=== PATIENT | male | born 1980 | race Hispanic/Latino ===

== ENCOUNTER 2017-01-01 17:54 | Emergency (ER) | payer MEDICARE ==
[2017-01-01] MEDS ORDERED: TORADOL IM ONE (19:21)
--- NOTE | 2017-01-01 19:38 | XRay Report ---
FINAL REPORT EXAM: XR ANKLE 3 RT HISTORY: right ankle pain, twisting injury and swelling TECHNIQUE: Right ankle three views 3 images PRIORS: None. FINDINGS: Bone mineralization appears within normal limits. No acute fracture or subluxation is identified. No gross abnormality is seen in the soft tissues. IMPRESSION: 1. No acute osseous abnormality is identified.
--- NOTE | 2017-01-01 19:39 | XRay Report ---
FINAL REPORT EXAM: XR FOOT 3 RT HISTORY: right heel pain, twisting injury and swelling TECHNIQUE: Right foot three views 3 images PRIORS: None. FINDINGS: Bone mineralization appears within normal limits. No acute fracture or subluxation is identified. No gross abnormality is seen in the soft tissues. IMPRESSION: 1. No acute osseous abnormality is identified.If symptoms persist, consider repeat study in 10-14 days to assess for a currently radiographically occult fracture.
[2017-01-01 19:57] VITALS: BP 148/93
--- NOTE | 2017-01-01 22:07 | Emergency Department Report ---
Entered by LEÓN MAJANO, acting as scribe for ADELINA STEPHENS PA. ED Lower Extremity HPI - General Chief Complaint: Extremity Injury, Lower Stated Complaint: RT ANKLE/HEEL PAIN Time Seen by Provider: 01/01/17 18:59 Source: patient Mode of arrival: Ambulatory Limitations: No Limitations - History of Present Illness Initial Comments: 36 year old with a PMHx of HTN and GERD presents to the ED c/o right ankle and calcaneus pain that began 2 days ago. Patient states that he was walking and stepped in a hole, and subsequently injured his right ankle. Rates pain an 8/10 in severity and describes pain as throbbing in quality. Denies numbness, tingling, shortness of breath, chest pain, abdominal pain, fever, and chills. Denies previous right ankle injury or surgery. Denies tobacco use and EtOH consumption. Allergic to codeine and Sulfa. MD Complaint: ankle injury (right) Onset/Timin -: days(s) Injury: Ankle: Right (posterior ankle and dorsal forefoot) Type of Injury: inversion Place: street/outdoors Severity: moderate Severity scale (0 -10): 8 Improves With: immobilization Worsens With: weight bearing, movement, palpation Context: walking (stepped in hole and injured ankle) Associated Symptoms: swelling, able to partially bear weight, ambulatory. denies: snap/pop sensation, numbness, tingling, other (SOB, chest pain, abdominal pain, fever, and chills) - Related Data Home Medications Medication Instructions Recorded Confirmed Last Taken Lisinopril [Zestril TAB] 10 mg PO QDAY 09/10/13 04/08/15 04/08/15 Omeprazole [Prilosec] 20 mg PO BID 09/10/13 04/08/15 04/08/15 cloNIDine [Catapres] 0.1 mg PO QHS 09/10/13 04/08/15 04/07/15 ARIPiprazole [Abilify TAB] 10 mg PO DAILY 04/08/15 04/08/15 04/07/15 Mirtazapine [Remeron] 7.5 mg PO QHS 04/08/15 04/08/15 04/07/15 carBAMazepine [TEGretol] 200 mg PO Q12HR 04/08/15 04/08/1515 Previous Rx's Medication Instructions Recorded Last Taken Type Ibuprofen [Motrin 800 MG tab] 800 mg PO Q8HR PRN #30 tablet 04/08/15 Unknown Rx methOCARBAMOL [Robaxin TAB] 500 mg PO Q6H PRN #20 tablet 04/08/15 Unknown Rx Gentamicin 0.3% Ophth Soln 2 drops OP Q4H 5 Days 04/28/15 Unknown Rx Meloxicam 15 mg PO QDAY #30 tablet 05/04/15 Unknown Rx methOCARBAMOL [Robaxin TAB] 500 mg PO BID #10 tab 05/04/15 Unknown Rx Naproxen [Naprosyn] 500 mg PO BID #30 tablet 01/01/17 Unknown Rx Allergies Allergy/AdvReac Type Severity Reaction Status Date / Time codeine Allergy Anaphylaxis Verified 04/28/15 14:26 Sulfa (Sulfonamide Allergy Anaphylaxis Verified 04/28/15 14:26 Antibiotics) ED Review of Systems Comment: All other systems reviewed and negative Constitutional: denies: chills, fever, other (tingling) Respiratory: denies: orthopnea, shortness of breath, SOB with exertion, SOB at rest, stridor Cardiovascular: denies: chest pain, dyspnea on exertion, orthopnea Gastrointestinal: denies: abdominal pain, nausea, vomiting Musculoskeletal: other (right posterior, dorsal forefoot, and calcaneus pain) Neurological: denies: numbness ED Past Medical Hx - Past Medical History Hx Hypertension: Yes Hx GERD: Yes Hx Psychiatric Treatment: Yes (PTSD,AUTISM) Additional medical history: schizoeffective disorder. bipolar - Surgical History Hx Appendectomy: Yes (1994) Additional Surgical History: right ACL repair - Social History Smoking Status: Never Smoker Substance Use Type: None - Medications Home Medications: Home Medications Medication Instructions Recorded Confirmed Last Taken Type Lisinopril [Zestril TAB] 10 mg PO QDAY 09/10/13 04/08/15 04/08/15 History Omeprazole [Prilosec] 20 mg PO BID 09/10/13 04/08/15 04/08/15 History cloNIDine [Catapres] 0.1 mg PO QHS 09/10/13 04/08/15 04/07/15 History ARIPiprazole [Abilify TAB] 10 mg PO DAILY 04/08/15 04/08/15 04/07/15 History Ibuprofen [Motrin 800 MG tab] 800 mg PO Q8HR PRN #30 tablet 04/08/15 Unknown Rx Mirtazapine [Remeron] 7.5 mg PO QHS 04/08/15 04/08/15 04/07/15 History carBAMazepine [TEGretol] 200 mg PO Q12HR 04/08/15 04/08/15 04/08/15 History methOCARBAMOL [Robaxin TAB] 500 mg PO Q6H PRN #20 tablet 04/08/15 Unknown Rx Gentamicin 0.3% Ophth Soln 2 drops OP Q4H 5 Days 04/28/15 Unknown Rx Meloxicam 15 mg PO QDAY #30 tablet 05/04/15 Unknown Rx methOCARBAMOL [Robaxin TAB] 500 mg PO BID #10 tab 05/04/15 Unknown Rx Naproxen [Naprosyn] 500 mg PO BID #30 tablet 01/01/17 Unknown Rx ED Physical Exam - General Limitations: No Limitations General appearance: alert, in no apparent distress - Head Head exam: Present: atraumatic, normocephalic - Eye Eye exam: Present: normal appearance, EOMI Pupils: Present: normal accommodation - ENT ENT exam: Present: normal exam, mucous membranes moist - Neck Neck exam: Present: normal inspection, full ROM - Respiratory Respiratory exam: Present: normal lung sounds bilaterally. Absent: respiratory distress - Cardiovascular Cardiovascular Exam: Present: regular rate, normal rhythm - Extremities Exam Extremities exam: Present: normal inspection, full ROM (limited dorsiflexion and plantar flexion), tenderness (posterior right ankle, right calcaneus, and right dorsal forefoot tenderness) - Expanded Lower Extremity Exam Right Hip exam: Present: normal inspection, full ROM Upper Leg exam: Present: normal inspection, full ROM Knee exam: Present: normal inspection, full ROM Lower Leg exam: Present: normal inspection, full ROM Ankle exam: Present: normal inspection, full ROM (limited dorsiflexion and plantar flexion motion due to posterior right ankle pain), tenderness (right posterior ankle and calcaneus). Absent: swelling, abrasion, laceration, ecchymosis, deformity, dislocation, erythema Foot/Toe exam: Present: normal inspection, full ROM (limited dorsiflexion and plantar flexion motion due to right dorsal forefoot pain), tenderness (right dorsal forefoot), swelling (minimal), calcaneal tenderness (minimal). Absent: abrasion, laceration, ecchymosis, deformity, dislocation Neuro vascular tendon exam: Present: no vascular compromise. Absent: pulse deficit, abnormal cap refill, motor deficit, sensory deficit, tendon deficit, pallor Gait: Positive: observed and limited by pain - Back Exam Back exam: Present: normal inspection, full ROM - Neurological Exam Neurological exam: Present: alert, oriented X3 - Psychiatric Psychiatric exam: Present: normal affect, normal mood - Skin Skin exam: Present: warm, dry, intact. Absent: rash ED Course Vital Signs 01/01/17 01/01/17 18:23 19:56 Temperature 98.9 F 99.5 F Pulse Rate 108 H 98 H Respiratory 18 18 Rate Blood Pressure 148/93 [Right] O2 Sat by Pulse 95 96 Oximetry ED Lower Extremity MDM - Lab Data Vital Signs 01/01/17 01/01/17 18:23 19:56 Temperature 98.9 F 99.5 F Pulse Rate 108 H 98 H Respiratory 18 18 Rate Blood Pressure 148/93 [Right] O2 Sat by Pulse 95 96 Oximetry - Radiology Data Radiology results: report reviewed Right foot x-ray: Bone mineralization appears within normal limits. No acute fracture or subluxation is identified. No gross abnormality seen in the soft tissues. Right ankle x-ray: Bone mineralization appears within normal limits. No acute fracture or subluxation is identified. No gross abnormalities seen and soft tissues. - Medical Decision Making 36-year-old male presents today with right ankle and heel pain 2 days. His x- ray results reveal no fracture or dislocation. Referral for orthopedic has been provided. Patient is in no acute distress at this time. He will be discharged home and is encouraged to follow up with a primary care provider. He will be sent home on naproxen and is encouraged to return to the emergency room for any worsening symptoms. ED Disposition Clinical Impression: Ankle pain, Heel pain Disposition: DISCHARGED TO HOME OR SELFCARE Is pt being admited?: No Does the pt Need Aspirin: No Condition: Stable Instructions: Ankle Sprain (ED) Additional Instructions: Follow-up with primary care provider. Return to the emergency department if symptoms worsen. Prescriptions: Naproxen [Naprosyn] 500 mg PO BID #30 tablet Referrals: PRIMARY MD VINCE [Primary Care Provider] - 3-5 Days REYNA MCGILL MD [Staff Physician] - 3-5 Days Forms: Work/School Release Form(ED) Time of Disposition: 19:49 This documentation as recorded by the MELECIO daily JASMINE,accurately reflects the service I personally performed and the decisions made by ,ADELINA STEPHENS PA.
== END 2017-01-01 20:10 | disposition home or self-care (01) ==
LOC: ED 17:54
DX: M25.571 Pain in right ankle and joints of right foot (principal); I10 Essential (primary) hypertension; K21.9 Gastro-esophageal reflux disease without esophagitis; F43.10 Post-traumatic stress disorder, unspecified; F31.9 Bipolar disorder, unspecified; F25.9 Schizoaffective disorder, unspecified; Z90.49 Acquired absence of other specified parts of digestive tract; Z88.5 Allergy status to narcotic agent; Z88.2 Allergy status to sulfonamides
CPT/HCPCS: 73610; 73630; 96372; 99283; J1885

== ENCOUNTER 2017-12-03 13:52 | Emergency (ER) | payer MEDICARE ==
[2017-12-03 14:00] VITALS: BP 143/82
--- NOTE | 2017-12-03 16:54 | XRay Report ---
FINAL REPORT PROCEDURE: Right hand. TECHNIQUE: Three views. HISTORY: Hand swelling, pain. COMPARISON: No prior studies are available for comparison. FINDINGS: There is a transverse fracture through the ulnar styloid process. The fracture margins are indistinct and there may be some erosion present. This suggests that this is an old, unhealed fracture. Clinical correlation is recommended. The remaining bones appear intact. The joint spaces appear satisfactory. The soft tissues are unremarkable. IMPRESSION: Ununited fracture of the ulnar styloid process.
--- NOTE | 2017-12-03 17:13 | Emergency Department Report ---
Upper Extremity - HPI Chief Complaint: Extremity Injury, Upper Stated Complaint: HAND PROBLEM Time Seen by Provider: 12/03/17 17:13 Upper Extremity: Left Wrist (radiating pain from right middle finger), Right Middle Finger (right middle finger pain radiating down to right wrist) Occurred When: >5 Days (2 months ago) Mechanism: Hit with Object Severity: severe (8/10) Symptoms: Yes Pain with Movement (right middle finger), Yes Limited Range of Movement (right middle finger pain with movement), Yes Swelling (right middle finger), No Deformity, No Numbness, No Weakness, No Bruising/Ecchymosis, No Laceration or Abrasion Other History: page patient here reports that he has swelling to his right middle finger. He states that he fractured this same digit 2 months ago and wore a splint for 2 weeks. He said he followed up with orthopedic in [place] and was told that everything was fine but yesterday it started swelling again. He denies reinjuring his finger. He said these have been pain to that digit this radiated into his wrist on the ulnar side. Pain is 8 out of 10 that feels achy. No medication taken prior to coming to the hospital. Pain is worse with movement better with rest. Patient reports that he is at [facility] outpatient for rehabilitation. ED Review of Systems ROS: Stated complaint: HAND PROBLEM Other details as noted in HPI Comment: All other systems reviewed and negative Constitutional: no symptoms reported Respiratory: no symptoms reported Cardiovascular: denies: chest pain, palpitations, dyspnea on exertion, edema, syncope Gastrointestinal: denies: abdominal pain, nausea, vomiting Musculoskeletal: joint swelling, arthralgia. denies: back pain, myalgia Skin: denies: rash Neurological: denies: headache, numbness, paresthesias, abnormal gait, vertigo ED Past Medical Hx - Past Medical History Previous Medical History?: Yes Hx Hypertension: Yes Hx GERD: Yes Hx Psychiatric Treatment: Yes (PTSD,AUTISM) Additional medical history: schizoeffective disorder. bipolar - Surgical History Past Surgical History?: Yes Hx Appendectomy: Yes (1994) Additional Surgical History: right ACL repair - Family History Family history: hypertension - Social History Smoking Status: Never Smoker Substance Use Type: None - Medications Home Medications: Home Medications Medication Instructions Recorded Confirmed Last Taken Type Lisinopril [Zestril TAB] 10 mg PO QDAY 09/10/13 04/08/15 04/08/15 History Omeprazole [Prilosec] 20 mg PO BID 09/10/13 04/08/15 04/08/15 History cloNIDine [Catapres] 0.1 mg PO QHS 09/10/13 04/08/15 04/07/15 History ARIPiprazole [Abilify TAB] 10 mg PO DAILY 04/08/15 04/08/15 04/07/15 History Mirtazapine [Remeron] 7.5 mg PO QHS 04/08/15 04/08/15 04/07/15 History carBAMazepine [TEGretol] 200 mg PO Q12HR 04/08/15 04/08/15 04/08/15 History methOCARBAMOL [Robaxin TAB] 500 mg PO Q6H PRN #20 tablet 04/08/15 Unknown Rx Gentamicin 0.3% Ophth Soln 2 drops OP Q4H 5 Days bottle 04/28/15 Unknown Rx Meloxicam 15 mg PO QDAY #30 tablet 05/04/15 Unknown Rx methOCARBAMOL [Robaxin TAB] 500 mg PO BID #10 tab 05/04/15 Unknown Rx Naproxen [Naprosyn] 500 mg PO BID #30 tablet 01/01/17 Unknown Rx Ibuprofen [Motrin 800 MG tab] 800 mg PO Q8HR PRN #15 tablet 12/03/17 Unknown Rx Upper Extremity Exam - Exam General: Vital signs noted. No distress. Alert and acting appropriately. Patient is a 37-year-old patient in no acute distress. He is visiting from [facility] for pain to his right middle finger this radiated to his right wrist. Head and Torso: No HEENT Abnormality (normal exam), No Neck Tenderness (no C- spine tenderness, full range of motion), No Chest/Lungs Abnormality (no chest wall tenderness,CTAB. Normal work of breathing), No Abdominal Tenderness ( nontender to palpate in all quadrants, no guarding or rebound tenderness.), No Back Tenderness (no vertebral or paraspinal tenderness. Ambulates without any difficulties) Shoulder Exam: Yes Normal Range of Motion in Shoulder, No Shoulder Tenderness, No Clavicle Tenderness, No Shoulder Deformity, No AC Joint Tenderness Arm Exam: No Arm/Humerus Tenderness, No Arm Deformity Elbow: Yes Normal Range of Motion in Elbow, No Elbow Tenderness, No Elbow Deformity Forearm: No Forearm Tenderness, No Forearm Deformity, No Pain with Pronation, No Pain with Supination Wrist: Yes Normal ROM in Wrist, No Wrist Tenderness, No Wrist Deformity, No Snuffbox Tenderness, No Pain with Axial Thumb Compression Hand: Yes Hand Tenderness (ulnar styloid area, right hand), Yes Digit Tenderness (right middle finger), Yes Normal ROM in Digit(s) (pain with range of motion.), No Hand Deformity, No Digit(s) Deformity, No Tendon Dysfunction CMS Exam: Yes Normal Distal Pulses, Yes Normal Capillary Refill, Yes Normal Distal Sensation, No Broken Skin ED Course Vital Signs 12/03/17 13:55 Temperature 98.2 F Pulse Rate 108 H Respiratory 16 Rate Blood Pressure 143/82 O2 Sat by Pulse 98 Oximetry Vital Signs 12/03/17 12/03/17 13:55 17:28 Temperature 98.2 F Pulse Rate 108 H 84 Respiratory 16 Rate Blood Pressure 143/82 O2 Sat by Pulse 98 Oximetry - Reevaluation(s) Reevaluation #1: 12/03/17 17:32 Patient given Motrin 800 mg by mouth in emergency room. Please refer to procedure note for splinting. - Orthopedic Splinting/Casting Injury #1 Side: right Upper Extremity Injury Location: hand, finger Upper Extremity Immobilizer: ulnar gutter (prefabricated, Velcro boxer splint to right hand and metal finger splint to right middle finger), aluminum form splint Additional Comments: Patient with good color, sensation, movement and temperature fingers of right hand. Pulses are 2+ and bounding. ED Medical Decision Making - Radiology Data Radiology results: report reviewed X-ray of right hand showed ununited fracture of ulnar styloid process. Transverse fracture through the ulnar styloid process. The fracture margins are indistinct and there may be some erosion present. This suggests that this is an old, unhealed fracture. Patient does not remember fracture in his wrist he said that he fractured his right middle finger 2 months ago. The joint spaces are satisfactory. The soft tissues are unremarkable. - Medical Decision Making ED course:Patient here from [facility] report that he is having hand pain and swelling to his right middle finger. He reports that he injured his right middle finger 2 months ago and it was splinted with metal splint and he followed up with orthopedic in [place] and they said that his finger was healed. Patient found to have ununited fracture of the ulnar styloid process which she said he doesn't know anything about because he does remember having a fracture there. This fracture per radiologist is old due to erosion. Patient with right middle finger swelling and he denied that he reinjured his right middle finger but said that he fractured it 2 months ago and he put a metal finger splint and he went to orthopedic in [facility] and be reevaluated and told him that he was healed. No mentioned of finger fracture on x-ray but the patient does have swelling and tenderness to the middle finger. Patient given Motrin 800 mg by mouth in the emergency room for pain. I did mention to him his x-ray results and he is adamant that he did not have any fracture to the ulnar styloid of his right hand. Patient does not have any restriction of range of motion to his left wrist but he does have some tenderness over the ulnar styloid process without any deformity. He said that pain is radiating from his middle finger to his wrists but wrist is normal. I discussed the patient that he will need to follow up with orthopedic doctor for reevaluation and treatment. Please see procedure note for details on splinted. Patient discharged home prescription for Motrin and he will be going back to [facility] to complete his treatment. Critical care attestation.: If time is entered above; I have spent that time in minutes in the direct care of this critically ill patient, excluding procedure time. ED Disposition Clinical Impression: Fracture, ununited, Swelling of right middle finger, Hand pain, right Disposition: DC-01 TO HOME OR SELFCARE Is pt being admited?: No Does the pt Need Aspirin: No Condition: Stable Instructions: Hand Fracture (ED), Splint Care (ED), Arthralgia (ED), Contusion in Adults (ED) Additional Instructions: Please follow up with orthopedic doctor as discussed. Take Motrin as prescribed See discharge instructions on splint care Call orthopedic doctor in Wednesday to schedule appointment for follow-up visit. Please see referral and discharge instruction paperwork Prescriptions: Ibuprofen [Motrin 800 MG tab] 800 mg PO Q8HR PRN #15 tablet PRN Reason: Pain Referrals: PRIMARY CAREMD [Primary Care Provider] - 3-5 Days KIM BOWIE MD [Staff Physician] - 3-5 Days Forms: Work/School Release Form(ED)
[2017-12-03] MEDS ORDERED: MOTRIN PO ONE (17:28)
== END 2017-12-03 17:50 | disposition home or self-care (01) ==
LOC: ED 13:52
DX: S52.611A Displaced fracture of right ulna styloid process, initial encounter for closed fracture (principal); I10 Essential (primary) hypertension; K21.9 Gastro-esophageal reflux disease without esophagitis; X58.XXXA Exposure to other specified factors, initial encounter; Y93.89 Activity, other specified; Y92.89 Other specified places as the place of occurrence of the external cause; Y99.8 Other external cause status
CPT/HCPCS: 99283

== ENCOUNTER 2017-12-04 23:06 | Emergency (ER) | payer MEDICARE ==
--- NOTE | 2017-12-04 23:44 | Emergency Department Report ---
Chief Complaint: Extremity Injury, Upper Stated Complaint: SWELLING RIGHT HAND - HPI History of Present Illness: 37-year-old male presents with complaint of increased pain and swelling right hand and wrist. As per patient he was treated in the ED yesterday and informed that he had a right wrist fracture. Is presenting now with significant increased swelling and redness overlying skin. Patient denies fever or chills. States that he was given a Velcro splint but cannot tolerate wearing it secondary to pain and swelling. - ROS Review of Systems: Fracture of right wrist diagnosed yesterday - Exam Vital Signs: Vital Signs 12/04/17 23:26 Temperature 99.0 F Pulse Rate 102 H Respiratory 20 Rate Blood Pressure 141/87 O2 Sat by Pulse 96 Oximetry Physical Exam: Right hand wrist and distal forearm pain and swelling MSE screening note: Focused history and physical exam performed. Due to findings the following was ordered: Screening Assessment/Plan/Differential Dx: Right wrist fracture with new complaint of significant increased swelling and erythema 1- This initial assessment/diagnostic orders/clinical plan/ treatment(s) is/are subject to change based on pt's health status, clinical progression and re- assessment by fellow clinical providers in the ED. Further treatment and workup at subsequent clinical provers discretion. Patient/guardians urged not to elope from ED as their condition may be serious if not clinically assessed and managed. 2-initial differential diagnosis includes cellulitis versus compartment syndrome versus myositis secondary to fracture 3-CBC, BMP, creatinine kinase 4-As patient was discharged from the ED yesterday and is returning with a worsened issue will book patient for the main ED to be seen by main ED provider ED Disposition for MSE Condition: Stable
[2017-12-04 23:58] LABS: Hematocrit 39.8 % (35.5-45.6); Hemoglobin 13.3 gm/dl (11.8-15.2); Mean Corpuscular HGB Conc 33 % (32-34); Mean Corpuscular Volume 77 fl (84-94); Platelet Count 281 K/mm3 (140-440); Red Blood Count 5.17 M/mm3 (3.65-5.03); Red Cell Distribution Width 15.9 % (13.2-15.2)
[2017-12-05 00:22] LABS: BUN/Creatinine Ratio 11; Blood Urea Nitrogen 11 mg/dL (9-20); Hemolysis Index 3
[2017-12-05 00:46] LABS: Mean Corpuscular Hemoglobin 26 pg (28-32)
--- NOTE | 2017-12-05 03:19 | Emergency Department Report ---
ED Upper Extremity Inj HPI - General Chief Complaint: Extremity Injury, Upper Stated Complaint: SWELLING RIGHT HAND Time Seen by Provider: 12/05/17 03:06 Source: patient Mode of arrival: Ambulatory Limitations: No Limitations - History of Present Illness Initial Comments: 37 year old male with a past medical history GERD, PTSD, autism, schizoaffective disorder, and previous right middle finger injury presents to the hospital will complains of right hand pain and swelling. Patient was seen here yesterday with complaints of recurrent right middle finger pain and swelling. Patient states he jammed his finger 2 months ago and was diagnosed with a fracture of his PIP joint. He follow with orthopedic surgery states that it are healed areas 15 to have swelling bed slowly improve but worsen again several days ago. He denies any recent injury. Patient was seen here on the and had a x-ray revealing an ulnar styloid fracture which was thought to be chronic given signs of healing. Patient denies any known recent fracture of the ulnar styloid and therefore was placed in a Velcro wrist splint and finger splint. Patient states that the splint was too tight and he had worsening swelling of his finger and hand and therefore removed the splint. No reports of fever. Pt currently residing at the psychiatric outpatient [facility] - Related Data Home Medications Medication Instructions Recorded Confirmed Last Taken Lisinopril [Zestril TAB] 10 mg PO QDAY 09/10/13 04/08/15 04/08/15 Omeprazole [Prilosec] 20 mg PO BID 09/10/13 04/08/15 04/08/15 cloNIDine [Catapres] 0.1 mg PO QHS 09/10/13 04/08/15 04/07/15 ARIPiprazole [Abilify TAB] 10 mg PO DAILY 04/08/15 04/08/15 04/07/15 Mirtazapine [Remeron] 7.5 mg PO QHS 04/08/15 04/08/15 04/07/15 carBAMazepine [TEGretol] 200 mg PO Q12HR 04/08/15 04/08/15 04/08/15 Previous Rx's Medication Instructions Recorded Last Taken Type methOCARBAMOL [Robaxin TAB] 500 mg PO Q6H PRN #20 tablet 04/08/15 Unknown Rx Gentamicin 0.3% Ophth Soln 2 drops OP Q4H 5 Days bottle 04/28/15 Unknown Rx Meloxicam 15 mg PO QDAY #30 tablet 05/04/15 Unknown Rx methOCARBAMOL [Robaxin TAB] 500 mg PO BID #10 tab 05/04/15 Unknown Rx Naproxen [Naprosyn] 500 mg PO BID #30 tablet 01/01/17 Unknown Rx Ibuprofen [Motrin 800 MG tab] 800 mg PO Q8HR PRN #15 tablet 12/03/17 Unknown Rx Doxycycline [Vibramycin CAP] 100 mg PO Q12HR 10 Days capsule 12/05/17 Unknown Rx Allergies Allergy/AdvReac Type Severity Reaction Status Date / Time codeine Allergy Anaphylaxis Verified 04/28/15 14:26 Sulfa (Sulfonamide Allergy Anaphylaxis Verified 04/28/15 14:26 Antibiotics) ED Review of Systems ROS: Stated complaint: SWELLING RIGHT HAND Other details as noted in HPI ED Past Medical Hx - Past Medical History Previous Medical History?: Yes Hx Hypertension: Yes Hx GERD: Yes Hx Psychiatric Treatment: Yes (PTSD,AUTISM) Additional medical history: schizoeffective disorder. bipolar - Surgical History Past Surgical History?: Yes Hx Appendectomy: Yes (1994) Additional Surgical History: right ACL repair - Social History Smoking Status: Never Smoker Substance Use Type: None - Medications Home Medications: Home Medications Medication Instructions Recorded Confirmed Last Taken Type Lisinopril [Zestril TAB] 10 mg PO QDAY 09/10/13 04/08/15 04/08/15 History Omeprazole [Prilosec] 20 mg PO BID 09/10/13 04/08/15 04/08/15 History cloNIDine [Catapres] 0.1 mg PO QHS 09/10/13 04/08/15 04/07/15 History ARIPiprazole [Abilify TAB] 10 mg PO DAILY 04/08/15 04/08/15 04/07/15 History Mirtazapine [Remeron] 7.5 mg PO QHS 04/08/15 04/08/15 04/07/15 History carBAMazepine [TEGretol] 200 mg PO Q12HR 04/08/15 04/08/15 04/08/15 History methOCARBAMOL [Robaxin TAB] 500 mg PO Q6H PRN #20 tablet 04/08/15 Unknown Rx Gentamicin 0.3% Ophth Soln 2 drops OP Q4H 5 Days bottle 04/28/15 Unknown Rx Meloxicam 15 mg PO QDAY #30 tablet 05/04/15 Unknown Rx methOCARBAMOL [Robaxin TAB] 500 mg PO BID #10 tab 05/04/15 Unknown Rx Naproxen [Naprosyn] 500 mg PO BID #30 tablet 01/01/17 Unknown Rx Ibuprofen [Motrin 800 MG tab] 800 mg PO Q8HR PRN #15 tablet 12/03/17 Unknown Rx Doxycycline [Vibramycin CAP] 100 mg PO Q12HR 10 Days capsule 12/05/17 Unknown Rx ED Physical Exam - General Limitations: No Limitations - Other Other exam information: General: No limitations, patient is alert in no acute distress Head exam: Atraumatic, normocephalic Eyes exam: Normal appearance, pupils equal reactive to light, extraocular movements intact ENT: Moist mucous membrane, normal oropharynx Neck exam: Normal inspection, full range of motion, no meningismus nontender Respiratory exam: Clear to auscultation bilateral, no wheezes, rales, crackles Cardiovascular: Normal rate and rhythm, normal heart sounds Abdomen: Soft, nondistended, and nontender, with normal bowel sounds, no rebound, or guarding Extremity: Right hand. Swelling to PIP joint of third finger with limited flexion and extension. Swelling extends down to hands with tenderness to palpation. Mild warmth noted. Mild right ulnar styloid tenderness on palpation. Very mild erythema to finger and hand no Back: Normal Inspection, full range of motion, no tenderness Neurologic: Alert, oriented x3, cranial nerves intact, no motor or sensory deficit Psychiatric: normal affect, normal mood ED Course Vital Signs 12/04/17 12/04/17 12/04/17 23:26 23:53 23:54 Temperature 99.0 F Pulse Rate 102 H Respiratory 20 Rate Blood Pressure 141/87 118/72 Blood Pressure [Left] O2 Sat by Pulse 96 94 95 Oximetry 12/04/17 12/04/17 12/05/17 23:56 23:57 00:01 Temperature 99.3 F Pulse Rate 95 H Respiratory 24 22 Rate Blood Pressure 118/72 Blood Pressure 118/72 [Left] O2 Sat by Pulse 95 95 96 Oximetry 12/05/17 12/05/17 12/05/17 00:50 00:52 00:54 Temperature Pulse Rate Respiratory Rate Blood Pressure 125/80 125/80 125/80 Blood Pressure [Left] O2 Sat by Pulse 94 94 94 Oximetry 12/05/17 12/05/17 12/05/17 00:56 00:58 01:00 Temperature Pulse Rate Respiratory Rate Blood Pressure 125/80 125/80 111/68 Blood Pressure [Left] O2 Sat by Pulse 94 93 95 Oximetry 12/05/17 12/05/17 12/05/17 01:02 01:04 01:06 Temperature Pulse Rate Respiratory Rate Blood Pressure 111/68 111/68 111/68 Blood Pressure [Left] O2 Sat by Pulse 94 95 96 Oximetry 12/05/17 12/05/17 12/05/17 01:08 01:10 01:12 Temperature Pulse Rate Respiratory Rate Blood Pressure 111/68 111/68 111/68 Blood Pressure [Left] O2 Sat by Pulse 94 94 97 Oximetry 12/05/17 12/05/17 12/05/17 01:14 01:16 01:18 Temperature Pulse Rate Respiratory Rate Blood Pressure 111/68 111/68 111/68 Blood Pressure [Left] O2 Sat by Pulse 95 94 95 Oximetry 12/05/17 12/05/17 12/05/17 01:20 01:22 01:24 Temperature Pulse Rate Respiratory Rate Blood Pressure 111/68 111/68 111/68 Blood Pressure [Left] O2 Sat by Pulse 95 96 95 Oximetry 12/05/17 12/05/17 12/05/17 01:26 01:28 01:30 Temperature Pulse Rate Respiratory Rate Blood Pressure 111/68 111/68 111/68 Blood Pressure [Left] O2 Sat by Pulse 95 96 94 Oximetry 12/05/17 12/05/17 12/05/17 01:32 01:34 01:36 Temperature Pulse Rate Respiratory Rate Blood Pressure 111/68 111/68 111/68 Blood Pressure [Left] O2 Sat by Pulse 95 94 94 Oximetry 12/05/17 12/05/17 12/05/17 01:38 01:40 01:42 Temperature Pulse Rate Respiratory Rate Blood Pressure 111/68 111/68 111/68 Blood Pressure [Left] O2 Sat by Pulse 95 95 95 Oximetry 12/05/17 12/05/17 12/05/17 01:44 01:46 01:48 Temperature Pulse Rate Respiratory Rate Blood Pressure 111/68 111/68 111/68 Blood Pressure [Left] O2 Sat by Pulse 95 94 96 Oximetry 12/05/17 12/05/1718 01:50 01:52 01:54 Temperature Pulse Rate Respiratory Rate Blood Pressure 111/68 111/68 111/68 Blood Pressure [Left] O2 Sat by Pulse 97 94 96 Oximetry 12/05/17 12/05/17 12/05/17 01:56 01:58 02:00 Temperature Pulse Rate Respiratory Rate Blood Pressure 111/68 111/68 117/66 Blood Pressure [Left] O2 Sat by Pulse 96 95 97 Oximetry 12/05/17 12/05/17 12/05/17 02:02 02:04 02:06 Temperature Pulse Rate Respiratory Rate Blood Pressure 117/66 117/66 117/66 Blood Pressure [Left] O2 Sat by Pulse 96 95 96 Oximetry 12/05/17 12/05/17 12/05/17 02:08 02:10 02:12 Temperature Pulse Rate Respiratory Rate Blood Pressure 117/66 117/66 117/66 Blood Pressure [Left] O2 Sat by Pulse 96 96 96 Oximetry 12/05/17 12/05/17 12/05/17 02:14 02:16 02:18 Temperature Pulse Rate Respiratory Rate Blood Pressure 117/66 117/66 117/66 Blood Pressure [Left] O2 Sat by Pulse 95 94 96 Oximetry 12/05/17 12/05/17 12/05/17 02:20 02:22 02:24 Temperature Pulse Rate Respiratory Rate Blood Pressure 117/66 117/66 117/66 Blood Pressure [Left] O2 Sat by Pulse 93 96 96 Oximetry 12/05/17 12/05/17 12/05/17 02:26 02:28 03:18 Temperature Pulse Rate Respiratory Rate Blood Pressure 117/66 117/66 108/61 Blood Pressure [Left] O2 Sat by Pulse 96 95 96 Oximetry 12/05/17 12/05/17 12/05/17 03:20 03:22 03:24 Temperature Pulse Rate Respiratory Rate Blood Pressure 108/61 108/61 108/61 Blood Pressure [Left] O2 Sat by Pulse 96 97 97 Oximetry 12/05/17 12/05/17 12/05/17 03:26 03:28 03:30 Temperature Pulse Rate Respiratory Rate Blood Pressure 108/61 108/61 108/61 Blood Pressure [Left] O2 Sat by Pulse 95 93 95 Oximetry 12/05/17 12/05/17 12/05/17 03:32 04:52 04:53 Temperature Pulse Rate Respiratory Rate Blood Pressure 108/61 108/61 123/74 Blood Pressure [Left] O2 Sat by Pulse 93 97 97 Oximetry 12/05/17 12/05/17 12/05/17 04:55 04:57 04:59 Temperature Pulse Rate Respiratory Rate Blood Pressure 123/74 123/74 123/74 Blood Pressure [Left] O2 Sat by Pulse 96 96 98 Oximetry 12/05/17 12/05/17 12/05/17 05:00 05:01 05:03 Temperature Pulse Rate Respiratory Rate Blood Pressure 114/76 114/76 114/76 Blood Pressure [Left] O2 Sat by Pulse 96 97 96 Oximetry 12/05/17 12/05/17 12/05/17 05:05 05:07 05:09 Temperature Pulse Rate Respiratory Rate Blood Pressure 114/76 114/76 114/76 Blood Pressure [Left] O2 Sat by Pulse 96 95 96 Oximetry 12/05/17 12/05/17 12/05/17 05:11 05:12 05:13 Temperature Pulse Rate Respiratory Rate Blood Pressure 114/76 114/76 114/76 Blood Pressure [Left] O2 Sat by Pulse 96 96 96 Oximetry 12/05/17 12/05/17 12/05/17 05:15 05:17 05:19 Temperature Pulse Rate Respiratory Rate Blood Pressure 114/76 114/76 114/76 Blood Pressure [Left] O2 Sat by Pulse 96 95 95 Oximetry 12/05/17 12/05/17 12/05/17 05:21 05:23 05:25 Temperature Pulse Rate Respiratory Rate Blood Pressure 114/76 114/76 114/76 Blood Pressure [Left] O2 Sat by Pulse 96 97 97 Oximetry 12/05/17 12/05/17 12/05/17 05:27 05:29 05:31 Temperature Pulse Rate Respiratory Rate Blood Pressure 114/76 114/76 114/76 Blood Pressure [Left] O2 Sat by Pulse 97 97 96 Oximetry 12/05/17 12/05/17 12/05/17 05:33 05:35 05:37 Temperature Pulse Rate Respiratory Rate Blood Pressure 114/76 114/76 114/76 Blood Pressure [Left] O2 Sat by Pulse 97 96 97 Oximetry 12/05/17 12/05/17 12/05/17 05:39 05:41 05:43 Temperature Pulse Rate Respiratory Rate Blood Pressure 114/76 114/76 114/76 Blood Pressure [Left] O2 Sat by Pulse 96 96 96 Oximetry 12/05/17 12/05/17 12/05/17 05:45 05:47 05:49 Temperature Pulse Rate Respiratory Rate Blood Pressure 114/76 114/76 114/76 Blood Pressure [Left] O2 Sat by Pulse 99 98 98 Oximetry 12/05/17 12/05/17 12/05/17 05:51 05:53 05:55 Temperature Pulse Rate Respiratory Rate Blood Pressure 114/76 114/76 114/76 Blood Pressure [Left] O2 Sat by Pulse 97 98 98 Oximetry 12/05/17 12/05/17 12/05/17 05:57 05:59 06:00 Temperature Pulse Rate Respiratory Rate Blood Pressure 114/76 114/76 119/75 Blood Pressure [Left] O2 Sat by Pulse 97 97 Oximetry 12/05/17 12/05/17 12/05/17 06:01 06:03 06:05 Temperature Pulse Rate Respiratory Rate Blood Pressure 119/75 119/75 119/75 Blood Pressure [Left] O2 Sat by Pulse 97 96 96 Oximetry 12/05/17 06:07 Temperature Pulse Rate Respiratory Rate Blood Pressure 119/75 Blood Pressure [Left] O2 Sat by Pulse 98 Oximetry - Consultations Consultation #1: 12/05/17 03:[address] Carrillo station agent orthopedics. Patient will be placed on Keflex and follow-up with Orth and will be encouraged. Recommends resplinting ED Medical Decision Making - Lab Data Result diagrams: 12/04/17 23:47 12/04/17 23:47 Lab Results 12/04/17 12/04/17 12/04/17 Range/Units 23:47 23:47 23:47 WBC 13.6 H (4.5-11.0) K/mm3 RBC 5.17 H (3.65-5.03) M/mm3 Hgb 13.3 (11.8-15.2) gm/dl Hct 39.8 (35.5-45.6) % MCV 77 L (84-94) fl MCH 26 L (28-32) pg MCHC 33 (32-34) % RDW 15.9 H (13.2-15.2) % Plt Count 281 (140-440) K/mm3 Sodium 135 L (137-145) mmol/L Potassium 4.1 (3.6-5.0) mmol/L Chloride 96.0 L (98-107) mmol/L Carbon Dioxide 26 (22-30) mmol/L Anion Gap 17 mmol/L BUN 11 (9-20) mg/dL Creatinine 1.0 (0.8-1.5) mg/dL Estimated GFR > 60 ml/min BUN/Creatinine Ratio 11 % Glucose 122 H (75-100) mg/dL Calcium 9.0 (8.4-10.2) mg/dL Total Creatine Kinase 90 (55-170) units/L - Medical Decision Making Labs available mild leukocytosis without signs of rhabdomyolysis or originally abnormality. Patient will be treated with doxy for mrsa coverage instead of keflex. re-splinted with a OCL and finger splint. Orthopedic follow-up will be encouraged ulnar ocl and middle finger splint placed prior to d/c - Differential Diagnosis infection, flexor tenosynovitis, fracture, compartment syndrome Critical Care Time: No Critical care attestation.: If time is entered above; I have spent that time in minutes in the direct care of this critically ill patient, excluding procedure time. ED Disposition Clinical Impression: Swelling of right middle finger, Hand pain, right, Fracture, ununited, Cellulitis Disposition: - TO HOME OR SELFCARE Is pt being admited?: No Does the pt Need Aspirin: No Condition: Stable Instructions: Wrist Fracture in Adults (ED), Cellulitis (ED) Additional Instructions: Follow-up with the orthopedic doctor on Wednesday. Take the medications as prescribed. Return is symptoms worsen as indicated by your discharge instructions Prescriptions: Doxycycline [Vibramycin CAP] 100 mg PO Q12HR 10 Days capsule Referrals: KIM CARRILLO MD [Staff Physician] - 12/06/17 Time of Disposition: 06:35
[2017-12-05] MEDS ORDERED: KEFLEX PO ONE (03:21)
[2017-12-05] MEDS ORDERED: VIBRAMYCIN PO ONE (06:03)
[2017-12-05 06:12] VITALS: BP 119/75
== END 2017-12-05 06:30 | disposition home or self-care (01) ==
LOC: ED 23:06
DX: S52.611K Displaced fracture of right ulna styloid process, subsequent encounter for closed fracture with nonunion (principal); L03.011 Cellulitis of right finger; I10 Essential (primary) hypertension; K21.9 Gastro-esophageal reflux disease without esophagitis; Z88.6 Allergy status to analgesic agent; Z88.2 Allergy status to sulfonamides; X58.XXXD Exposure to other specified factors, subsequent encounter
CPT/HCPCS: 36415; 80048; 82550; 85027; 99283

== ENCOUNTER 2018-06-03 21:30 | Emergency (ER) | payer MEDICARE ==
--- NOTE | 2018-06-03 23:53 | XRay Report ---
FINAL REPORT EXAM: XR FOOT 2V LT HISTORY: pain and swelling TECHNIQUE: Two views of the left ankle and two views of the left foot PRIORS: 12/13/2016 FINDINGS: The bones are normally aligned and mineralized. The joint spaces are well-preserved. There is no evidence of acute fracture. The soft tissues are unremarkable. IMPRESSION: No evidence of acute fracture or subluxation.
[2018-06-04] MEDS ORDERED: MOTRIN PO ONE (05:00)
--- NOTE | 2018-06-04 05:00 | Emergency Department Report ---
ED Lower Extremity HPI - General Chief Complaint: Extremity Injury, Lower Stated Complaint: PAIN/SWELLING LT LOWER LEG Time Seen by Provider: 06/04/18 04:54 Source: patient Mode of arrival: Ambulatory Limitations: No Limitations - History of Present Illness Initial Comments: 38-year-old [place] comes in for left foot pain and swelling. Patient reports a fail on night while taking a shower and when he got out that he stepped on the rug in his slipped from underneath for him. Patient reports that he has been taking Tylenol which does not help much with the pain. Patient has a past medical history of hypertension GERD PTSD autism schizophrenia disorder bipolar. MD Complaint: foot injury -: days(s) (2) Injury: Foot: Left (pain and swelling) Type of Injury: eversion Place: home Severity scale (0 -10): 6 Worsens With: weight bearing Context: fall Associated Symptoms: able to partially bear weight Treatments Prior to Arrival: other (Tylenol) - Related Data Home Medications Medication Instructions Recorded Confirmed Last Taken Lisinopril [Zestril TAB] 10 mg PO QDAY 09/10/13 04/08/15 04/08/15 Omeprazole [Prilosec] 20 mg PO BID 09/10/13 04/08/15 04/08/15 cloNIDine [Catapres] 0.1 mg PO QHS 09/10/13 04/08/15 04/07/15 ARIPiprazole [Abilify TAB] 10 mg PO DAILY 04/08/15 04/08/15 04/07/15 Mirtazapine [Remeron] 7.5 mg PO QHS 04/08/15 04/08/15 04/07/15 carBAMazepine [TEGretol] 200 mg PO Q12HR 04/08/15 04/08/15 04/08/15 Previous Rx's Medication Instructions Recorded Last Taken Type methOCARBAMOL [Robaxin TAB] 500 mg PO Q6H PRN #20 tablet 04/08/15 Unknown Rx Gentamicin 0.3% Ophth Soln 2 drops OP Q4H 5 Days bottle 04/28/15 Unknown Rx Meloxicam 15 mg PO QDAY #30 tablet 05/04/15 Unknown Rx methOCARBAMOL [Robaxin TAB] 500 mg PO BID #10 tab 05/04/15 Unknown Rx Naproxen [Naprosyn] 500 mg PO BID #30 tablet 01/01/17 Unknown Rx Doxycycline [Vibramycin CAP] 100 mg PO Q12HR 10 Days capsule 12/05/17 Unknown Rx Ibuprofen [Motrin 800 MG tab] 800 mg PO Q8HR PRN #15 tablet 06/04/18 Unknown Rx Allergies Allergy/AdvReac Type Severity Reaction Status Date / Time codeine Allergy Anaphylaxis Verified 04/28/15 14:26 Sulfa (Sulfonamide Allergy Anaphylaxis Verified 04/28/15 14:26 Antibiotics) ED Review of Systems ROS: Stated complaint: PAIN/SWELLING LT LOWER LEG Other details as noted in HPI Comment: All other systems reviewed and negative Musculoskeletal: joint swelling, arthralgia ED Past Medical Hx - Past Medical History Previous Medical History?: Yes Hx Hypertension: Yes Hx GERD: Yes Hx Psychiatric Treatment: Yes (PTSD,AUTISM) Additional medical history: schizoeffective disorder. bipolar - Surgical History Past Surgical History?: Yes Hx Appendectomy: Yes (1994) Additional Surgical History: right ACL repair - Social History Smoking Status: Never Smoker Substance Use Type: None - Medications Home Medications: Home Medications Medication Instructions Recorded Confirmed Last Taken Type Lisinopril [Zestril TAB] 10 mg PO QDAY 09/10/13 04/08/15 04/08/15 History Omeprazole [Prilosec] 20 mg PO BID 09/10/13 04/08/15 04/08/15 History cloNIDine [Catapres] 0.1 mg PO QHS 09/10/13 04/08/15 04/07/15 History ARIPiprazole [Abilify TAB] 10 mg PO DAILY 04/08/15 04/08/15 04/07/15 History Mirtazapine [Remeron] 7.5 mg PO QHS 04/08/15 04/08/15 04/07/15 History carBAMazepine [TEGretol] 200 mg PO Q12HR 04/08/15 04/08/15 04/08/15 History methOCARBAMOL [Robaxin TAB] 500 mg PO Q6H PRN #20 tablet 04/08/15 Unknown Rx Gentamicin 0.3% Ophth Soln 2 drops OP Q4H 5 Days bottle 04/28/15 Unknown Rx Meloxicam 15 mg PO QDAY #30 tablet 05/04/15 Unknown Rx methOCARBAMOL [Robaxin TAB] 500 mg PO BID #10 tab 05/04/15 Unknown Rx Naproxen [Naprosyn] 500 mg PO BID #30 tablet 01/01/17 Unknown Rx Doxycycline [Vibramycin CAP] 100 mg PO Q12HR 10 Days capsule 12/05/17 Unknown Rx Ibuprofen [Motrin 800 MG tab] 800 mg PO Q8HR PRN #15 tablet 06/04/18 Unknown Rx ED Physical Exam - General Limitations: No Limitations General appearance: alert, in no apparent distress - Head Head exam: Present: atraumatic, normocephalic - Eye Eye exam: Present: EOMI - ENT ENT exam: Present: mucous membranes moist - Expanded Lower Extremity Exam Left Hip exam: Present: normal inspection, full ROM Upper Leg exam: Present: normal inspection Knee exam: Present: normal inspection, full ROM Lower Leg exam: Present: normal inspection, full ROM Ankle exam: Present: normal inspection, full ROM Foot/Toe exam: Present: full ROM, tenderness, swelling Neuro vascular tendon exam: Present: no vascular compromise. Absent: pulse deficit, abnormal cap refill - Neurological Exam Neurological exam: Present: alert, oriented X3 - Psychiatric Psychiatric exam: Present: normal affect, normal mood ED Course Vital Signs 06/03/18 23:02 Temperature 98.7 F Pulse Rate 107 H Respiratory 18 Rate Blood Pressure 124/82 O2 Sat by Pulse 94 Oximetry ED Lower Extremity MDM - Radiology Data Radiology results: report reviewed FINAL REPORT EXAM: XR FOOT 2V LT HISTORY: pain and swelling TECHNIQUE: Two views of the left ankle and two views of the left foot PRIORS: 12/13/2016 FINDINGS: The bones are normally aligned and mineralized. The joint spaces are well-preserved. There is no evidence of acute fracture. The soft tissues are unremarkable. IMPRESSION: No evidence of acute fracture or subluxation. Transcribed By: STACIE Dictated By: HUSAM ROBBINS MD Electronically Authenticated By: HUSAM ROBBINS MD Signed Date/Time: 06/03/182351 DD/ 51 TD/TT: 06/03/182351 - Medical Decision Making Patient has been evaluated by this provider in fast track. Ibuprofen given for pain management X-ray was performed shows normal examination Discussed the patient to take ibuprofen for pain follow up with his primary care provider symptoms persist or gets worse. Critical care attestation.: If time is entered above; I have spent that time in minutes in the direct care of this critically ill patient, excluding procedure time. ED Disposition Clinical Impression: Sprain of foot, left Qualifiers: Encounter type: initial encounter Qualified Code(s): S93.602A - Unspecified sprain of left foot, initial encounter Disposition: TO HOME OR SELFCARE Is pt being admited?: No Does the pt Need Aspirin: No Condition: Stable Instructions: Foot Sprain (ED) Additional Instructions: Please take ibuprofen for pain management. Follow-up which are primary care provider if symptoms persist or gets worse. Prescriptions: Ibuprofen [Motrin 800 MG tab] 800 mg PO Q8HR PRN #15 tablet PRN Reason: Pain Referrals: PRIMARY CARE,MD [Primary Care Provider] - 3-5 Days your,provider [Other] - 3-5 Days
[2018-06-04 05:13] VITALS: BP 130/80
--- NOTE | 2018-06-08 16:42 | XRay Report ---
LEFT ANKLE THREE VIEWS: 06/03/18 21:30:00 CLINICAL: Fall. Left ankle pain and swelling. FINDINGS: The ankle mortise is intact. No fracture or dislocation. Moderate medial and lateral soft tissue swelling . No soft tissue air or foreign body. IMPRESSION: Soft tissue injury and otherwise normal.
== END 2018-06-04 05:13 | disposition home or self-care (01) ==
LOC: ED 21:30
DX: S93.602A Unspecified sprain of left foot, initial encounter (principal); I10 Essential (primary) hypertension; K21.9 Gastro-esophageal reflux disease without esophagitis; F43.10 Post-traumatic stress disorder, unspecified; F84.0 Autistic disorder; F25.9 Schizoaffective disorder, unspecified; F31.9 Bipolar disorder, unspecified; Z90.89 Acquired absence of other organs; Z88.5 Allergy status to narcotic agent; Z88.2 Allergy status to sulfonamides; W01.0XXA Fall on same level from slipping, tripping and stumbling without subsequent striking against object, initial encounter; Y93.89 Activity, other specified; Y92.099 Unspecified place in other non-institutional residence as the place of occurrence of the external cause; Y99.8 Other external cause status
CPT/HCPCS: 99283

== ENCOUNTER 2018-06-08 10:04 | Emergency (ER) | payer MEDICARE ==
[2018-06-08 10:42] VITALS: BP 136/88
--- NOTE | 2018-06-08 12:36 | Emergency Department Report ---
ED Lower Extremity HPI - General Chief Complaint: Extremity Injury, Lower Stated Complaint: LFT FOOT SWOLLEN Time Seen by Provider: 06/08/18 12:26 Source: patient Mode of arrival: Ambulatory Limitations: No Limitations - History of Present Illness Initial Comments: This is a 38-year-old male nontoxic, well nourished in appearance, no acute signs of distress presents to the ED with c/o of left foot/ankle pain 4 days. Patient stated that he twisted his ankle. PAtient stated was seen 4 days ago and received xray within normal limits and was diagnoed with sprain. Patient denies being giving any ankle stirrup or crutches. Patient stated pain is still there and swelling. Patient denies any new trauma. Patient denies any numbness, tingling, fever, chills, nausea, vomiting, chest pain, shortness of breath, headache, stiff neck. Patient denies any joint swelling or joint redness. Patient denies decreased range of motion. Patient stated has decreased gait due to pain. Patient stated he has crutches from previous fracture. Patient stated allergies to codeine and sulfa. MD Complaint: ankle injury, foot injury -: days(s) (4) Injury: Ankle: Left, Foot: Left Severity: mild Severity scale (0 -10): 8 Improves With: immobilization Worsens With: weight bearing, movement, palpation Associated Symptoms: swelling, able to partially bear weight, ambulatory. denies: snap/pop sensation, numbness, unable to bear weight - Related Data Home Medications Medication Instructions Recorded Confirmed Last Taken Lisinopril [Zestril TAB] 10 mg PO QDAY 09/10/13 04/08/15 04/08/15 Omeprazole [Prilosec] 20 mg PO BID 09/10/13 04/08/15 04/08/15 cloNIDine [Catapres] 0.1 mg PO QHS 09/10/13 04/08/15 04/07/15 ARIPiprazole [Abilify TAB] 10 mg PO DAILY 04/08/15 04/08/15 04/07/15 Mirtazapine [Remeron] 7.5 mg PO QHS 04/08/15 04/08/15 04/07/15 carBAMazepine [TEGretol] 200 mg PO Q12HR 04/08/15 04/08/15 04/08/15 Previous Rx's Medication Instructions Recorded Last Taken Type methOCARBAMOL [Robaxin TAB] 500 mg PO Q6H PRN #20 tablet 04/08/15 Unknown Rx Gentamicin 0.3% Ophth Soln 2 drops OP Q4H 5 Days bottle 04/28/15 Unknown Rx Meloxicam 15 mg PO QDAY #30 tablet 05/04/15 Unknown Rx methOCARBAMOL [Robaxin TAB] 500 mg PO BID #10 tab 05/04/15 Unknown Rx Naproxen [Naprosyn] 500 mg PO BID #30 tablet 01/01/17 Unknown Rx Doxycycline [Vibramycin CAP] 100 mg PO Q12HR 10 Days capsule 12/05/17 Unknown Rx Ibuprofen [Motrin 800 MG tab] 800 mg PO Q8HR PRN #15 tablet 06/04/18 Unknown Rx Ibuprofen [Motrin] 600 mg PO Q8H PRN #30 tablet 06/08/18 Unknown Rx Allergies Allergy/AdvReac Type Severity Reaction Status Date / Time codeine Allergy Anaphylaxis Verified 04/28/15 14:26 Sulfa (Sulfonamide Allergy Anaphylaxis Verified 04/28/15 14:26 Antibiotics) ED Review of Systems ROS: Stated complaint: LFT FOOT SWOLLEN Other details as noted in HPI Constitutional: denies: chills, fever Eyes: denies: eye pain, eye discharge, vision change ENT: denies: ear pain, throat pain Respiratory: denies: cough, shortness of breath, wheezing Cardiovascular: denies: chest pain, palpitations Endocrine: no symptoms reported Gastrointestinal: denies: abdominal pain, nausea, diarrhea Genitourinary: denies: urgency, dysuria Musculoskeletal: denies: back pain, joint swelling, arthralgia Skin: denies: rash, lesions Neurological: denies: headache, weakness, paresthesias Psychiatric: denies: anxiety, depression Hematological/Lymphatic: denies: easy bleeding, easy bruising ED Past Medical Hx - Past Medical History Previous Medical History?: Yes Hx Hypertension: Yes Hx GERD: Yes Hx Arthritis: Yes (gout) Hx Psychiatric Treatment: Yes (PTSD, AUTISM) Additional medical history: schizoeffective disorder. bipolar - Surgical History Past Surgical History?: Yes Hx Appendectomy: Yes (1994) Additional Surgical History: right ACL repair - Social History Smoking Status: Never Smoker Substance Use Type: None - Medications Home Medications: Home Medications Medication Instructions Recorded Confirmed Last Taken Type Lisinopril [Zestril TAB] 10 mg PO QDAY 09/10/13 04/08/15 04/08/15 History Omeprazole [Prilosec] 20 mg PO BID 09/10/13 04/08/15 04/08/15 History cloNIDine [Catapres] 0.1 mg PO QHS 09/10/13 04/08/15 04/07/15 History ARIPiprazole [Abilify TAB] 10 mg PO DAILY 04/08/15 04/08/15 04/07/15 History Mirtazapine [Remeron] 7.5 mg PO QHS 04/08/15 04/08/15 04/07/15 History carBAMazepine [TEGretol] 200 mg PO Q12HR 04/08/15 04/08/15 04/08/15 History methOCARBAMOL [Robaxin TAB] 500 mg PO Q6H PRN #20 tablet 04/08/15 Unknown Rx Gentamicin 0.3% Ophth Soln 2 drops OP Q4H 5 Days bottle 04/28/15 Unknown Rx Meloxicam 15 mg PO QDAY #30 tablet 05/04/15 Unknown Rx methOCARBAMOL [Robaxin TAB] 500 mg PO BID #10 tab 05/04/15 Unknown Rx Naproxen [Naprosyn] 500 mg PO BID #30 tablet 01/01/17 Unknown Rx Doxycycline [Vibramycin CAP] 100 mg PO Q12HR 10 Days capsule 12/05/17 Unknown Rx Ibuprofen [Motrin 800 MG tab] 800 mg PO Q8HR PRN #15 tablet 06/04/18 Unknown Rx Ibuprofen [Motrin] 600 mg PO Q8H PRN #30 tablet 06/08/18 Unknown Rx ED Physical Exam - General Limitations: No Limitations General appearance: alert, in no apparent distress - Head Head exam: Present: atraumatic, normocephalic - Eye Eye exam: Present: normal appearance - ENT ENT exam: Present: mucous membranes moist - Neck Neck exam: Present: normal inspection - Respiratory Respiratory exam: Present: normal lung sounds bilaterally. Absent: respiratory distress - Cardiovascular Cardiovascular Exam: Present: regular rate, normal rhythm. Absent: systolic murmur, diastolic murmur, rubs, gallop - GI/Abdominal GI/Abdominal exam: Present: soft, normal bowel sounds - Rectal Rectal exam: Present: deferred - Extremities Exam Extremities exam: Present: normal inspection, full ROM, tenderness, normal capillary refill. Absent: joint swelling - Expanded Lower Extremity Exam Left Hip exam: Present: normal inspection, full ROM. Absent: tenderness, swelling Upper Leg exam: Present: normal inspection, full ROM. Absent: tenderness, swelling Knee exam: Present: normal inspection, full ROM. Absent: tenderness, swelling Lower Leg exam: Present: normal inspection, full ROM. Absent: tenderness, swelling, abrasion Ankle exam: Present: normal inspection, full ROM, tenderness, swelling. Absent : abrasion, laceration, ecchymosis, deformity, crepidus, dislocation, erythema, anterior draw sign Foot/Toe exam: Present: normal inspection, full ROM, tenderness, swelling. Absent: abrasion, laceration, ecchymosis, deformity, crepidus, dislocation, erythema, amputation, puncture wound, foreign body, calcaneal tenderness, tenderness at base of 5th metatarsal, nail avulsion, subungual hematoma Neuro vascular tendon exam: Present: no vascular compromise. Absent: pulse deficit, abnormal cap refill, motor deficit, sensory deficit, tendon deficit, extremity cold to touch, pallor, abnormal 2-point discrimination, decreased fine /light touch, foot drop, peroneal nerve deficit, significant pain with passive ROM of distal joint Gait: Positive: observed and limited by pain - Back Exam Back exam: Present: normal inspection, full ROM - Neurological Exam Neurological exam: Present: alert, oriented X3 - Psychiatric Psychiatric exam: Present: normal affect, normal mood - Skin Skin exam: Present: warm, dry, intact, normal color. Absent: rash ED Course Vital Signs 06/08/18 10:39 Temperature 99.5 F Pulse Rate 108 H Respiratory 18 Rate Blood Pressure 136/88 O2 Sat by Pulse 96 Oximetry - Reevaluation(s) Reevaluation #1: 06/08/18 12:36 Patient is speaking in full sentences with no signs of distress noted. ED Lower Extremity MDM - Medical Decision Making This is a 38-year-old female that presents with left foot/ankle strain. Patient is stable and was examined by me. I referred patient to an orthopedic doctor for further evaluation for possible MRI. X-ray has been obtained 4 days ago and dictated by the radiologist. Patient is notified of the x-ray report with noted by the patient. Patient does have normal gait with no tenderness and no joint swelling. No ecchymosis. no joint redness or swelling. Not warm to touch. No signs of cellulites present. Patient received a ankle stirrup and crutches and was educated by our and had a use crutches. Patient was instructed to RICE therapy. Patient received Motrin for pain. Patient is discharged with Motrin. At time of discharge, the patient does not seem toxic or ill in appearance. No acute signs of distress noted. Patient agrees to discharge treatment plan of care. No further questions noted by the patient. Critical care attestation.: If time is entered above; I have spent that time in minutes in the direct care of this critically ill patient, excluding procedure time. ED Disposition Clinical Impression: Left ankle sprain Qualifiers: Encounter type: initial encounter Involved ligament of ankle: unspecified ligament Qualified Code(s): S93.402A - Sprain of unspecified ligament of left ankle, initial encounter Sprain of left foot Qualifiers: Encounter type: initial encounter Qualified Code(s): S93.602A - Unspecified sprain of left foot, initial encounter Disposition: TO HOME OR SELFCARE Is pt being admited?: No Does the pt Need Aspirin: No Condition: Stable Instructions: Foot Sprain (ED), RICE Therapy (ED), Ankle Sprain (ED), Ankle Stirrup Splint (ED), Crutch Instructions (ED) Additional Instructions: Follow-up with a orthopedic doctor in 3-5 days or if symptoms worsen and continue return to emergency room as soon as possible. Prescriptions: Ibuprofen [Motrin] 600 mg PO Q8H PRN #30 tablet PRN Reason: Pain Referrals: PRIMARY CAREMD [Referring] - 3-5 Days KIM BOWIE MD [Staff Physician] - 3-5 Days [facility] [Outside] - 3-5 Days Forms: Work/School Release Form(ED)
== END 2018-06-08 12:46 | disposition home or self-care (01) ==
LOC: ED 10:04
DX: S93.402A Sprain of unspecified ligament of left ankle, initial encounter (principal); S93.602A Unspecified sprain of left foot, initial encounter; I10 Essential (primary) hypertension; K21.9 Gastro-esophageal reflux disease without esophagitis; M19.90 Unspecified osteoarthritis, unspecified site; F43.10 Post-traumatic stress disorder, unspecified; F20.9 Schizophrenia, unspecified; F31.9 Bipolar disorder, unspecified; Z90.49 Acquired absence of other specified parts of digestive tract; Z88.5 Allergy status to narcotic agent; Z88.1 Allergy status to other antibiotic agents; X58.XXXA Exposure to other specified factors, initial encounter; Y93.89 Activity, other specified; Y92.89 Other specified places as the place of occurrence of the external cause; Y99.8 Other external cause status

== ENCOUNTER 2018-10-08 19:52 | Emergency (ER) | payer MEDICARE ==
[2018-10-08 19:59] VITALS: BP 119/80
[2018-10-08] MEDS ORDERED: ULTRAM PO ONE (20:36)
--- NOTE | 2018-10-08 20:53 | Emergency Department Report ---
ED Lower Extremity HPI - General Chief Complaint: Extremity Problem,Nontraumatic Stated Complaint: LF KNEE PAIN Time Seen by Provider: 10/08/18 20:36 Source: patient Mode of arrival: Ambulatory Limitations: No Limitations - History of Present Illness Initial Comments: This is a 38-year-old white male history of chronic knee pain and obesity who presents for left knee pain no fall injury or trauma pt states out of anti- inflammatory medications pain is 4/10 aching exacerbated by movement prolonged standing walking climbing stairs. MD Complaint: knee injury Onset/Timin -: days(s) Injury: Knee: Left Type of Injury: hyperextension Place: home Severity: moderate Severity scale (0 -10): 7 Improves With: NSAID Worsens With: weight bearing, movement, palpation Context: other (none) Associated Symptoms: swelling, ambulatory. denies: snap/pop sensation, numbness, tingling - Related Data Home Medications Medication Instructions Recorded Confirmed Last Taken Lisinopril [Zestril TAB] 10 mg PO QDAY 09/10/13 04/08/15 04/08/15 Omeprazole [Prilosec] 20 mg PO BID 09/10/13 04/08/15 04/08/15 cloNIDine [Catapres] 0.1 mg PO QHS 09/10/13 04/08/15 04/07/15 ARIPiprazole [Abilify TAB] 10 mg PO DAILY 04/08/15 04/08/15 04/07/15 Mirtazapine [Remeron] 7.5 mg PO QHS 04/08/15 04/08/15 04/07/15 carBAMazepine [TEGretol] 200 mg PO Q12HR 04/08/15 04/08/15 04/08/15 Previous Rx's Medication Instructions Recorded Last Taken Type methOCARBAMOL [Robaxin TAB] 500 mg PO Q6H PRN #20 tablet 04/08/15 Unknown Rx Gentamicin 0.3% Ophth Soln 2 drops OP Q4H 5 Days bottle 04/28/15 Unknown Rx Meloxicam 15 mg PO QDAY #30 tablet 05/04/15 Unknown Rx methOCARBAMOL [Robaxin TAB] 500 mg PO BID #10 tab 05/04/15 Unknown Rx Naproxen [Naprosyn] 500 mg PO BID #30 tablet 01/01/17 Unknown Rx Doxycycline [Vibramycin CAP] 100 mg PO Q12HR 10 Days capsule 12/05/17 Unknown Rx Ibuprofen [Motrin 800 MG tab] 800 mg PO Q8HR PRN #15 tablet 06/04/18 Unknown Rx Ibuprofen [Motrin] 600 mg PO Q8H PRN #30 tablet 06/08/18 Unknown Rx Cyclobenzaprine [Flexeril] 10 mg PO TID PRN #30 tablet 10/08/18 Unknown Rx Menthol/Camphor [[place] 1 applicatio TP QID PRN #1 tube 10/08/18 Unknown Rx Ointment] Naproxen [Naprosyn] 500 mg PO BID PRN #30 tablet 10/08/18 Unknown Rx Allergies Allergy/AdvReac Type Severity Reaction Status Date / Time codeine Allergy Anaphylaxis Verified 10/08/18 19:56 Sulfa (Sulfonamide Allergy Anaphylaxis Verified 10/08/18 19:56 Antibiotics) ED Review of Systems ROS: Stated complaint: LF KNEE PAIN Other details as noted in HPI Constitutional: denies: chills, fever Eyes: denies: eye pain, eye discharge, vision change ENT: denies: ear pain, throat pain Respiratory: denies: cough, shortness of breath, wheezing Cardiovascular: denies: chest pain, palpitations Endocrine: no symptoms reported Gastrointestinal: denies: abdominal pain, nausea, vomiting, diarrhea Genitourinary: denies: urgency, dysuria Musculoskeletal: joint swelling, arthralgia. denies: back pain Skin: denies: rash, lesions Neurological: denies: headache, weakness, paresthesias ED Past Medical Hx - Past Medical History Hx Hypertension: Yes Hx GERD: Yes Hx Arthritis: Yes (gout) Hx Psychiatric Treatment: Yes (PTSD, AUTISM) Additional medical history: schizoeffective disorder. bipolar - Surgical History Hx Appendectomy: Yes (1994) Additional Surgical History: right ACL repair - Social History Smoking Status: Never Smoker Substance Use Type: Alcohol - Medications Home Medications: Home Medications Medication Instructions Recorded Confirmed Last Taken Type Lisinopril [Zestril TAB] 10 mg PO QDAY 09/10/13 04/08/15 04/08/15 History Omeprazole [Prilosec] 20 mg PO BID 09/10/13 04/08/15 04/08/15 History cloNIDine [Catapres] 0.1 mg PO QHS 1204/08/15 04/07/15 History ARIPiprazole [Abilify TAB] 10 mg PO DAILY 04/08/15 04/08/15 04/07/15 History Mirtazapine [Remeron] 7.5 mg PO QHS 04/08/15 04/08/15 04/07/15 History carBAMazepine [TEGretol] 200 mg PO Q12HR 04/08/15 04/08/15 04/08/15 History methOCARBAMOL [Robaxin TAB] 500 mg PO Q6H PRN #20 tablet 04/08/15 Unknown Rx Gentamicin 0.3% Ophth Soln 2 drops OP Q4H 5 Days bottle 04/28/15 Unknown Rx Meloxicam 15 mg PO QDAY #30 tablet 05/04/15 Unknown Rx methOCARBAMOL [Robaxin TAB] 500 mg PO BID #10 tab 05/04/15 Unknown Rx Naproxen [Naprosyn] 500 mg PO BID #30 tablet 01/01/17 Unknown Rx Doxycycline [Vibramycin CAP] 100 mg PO Q12HR 10 Days capsule 12/05/17 Unknown Rx Ibuprofen [Motrin 800 MG tab] 800 mg PO Q8HR PRN #15 tablet 06/04/18 Unknown Rx Ibuprofen [Motrin] 600 mg PO Q8H PRN #30 tablet 06/08/18 Unknown Rx Cyclobenzaprine [Flexeril] 10 mg PO TID PRN #30 tablet 10/08/18 Unknown Rx Menthol/Camphor [[place] 1 applicatio TP QID PRN #1 tube 10/08/18 Unknown Rx Ointment] Naproxen [Naprosyn] 500 mg PO BID PRN #30 tablet 10/08/18 Unknown Rx ED Physical Exam - General Limitations: No Limitations General appearance: alert, in no apparent distress - Head Head exam: Present: atraumatic, normocephalic - Eye Eye exam: Present: normal appearance, PERRL - ENT ENT exam: Present: mucous membranes moist - Neck Neck exam: Present: normal inspection, full ROM. Absent: tenderness - Respiratory Respiratory exam: Present: normal lung sounds bilaterally. Absent: respiratory distress, wheezes, stridor, chest wall tenderness - Cardiovascular Cardiovascular Exam: Present: regular rate, normal rhythm, normal heart sounds. Absent: systolic murmur, diastolic murmur, rubs, gallop - GI/Abdominal GI/Abdominal exam: Present: soft, normal bowel sounds. Absent: tenderness, bruit, hernia - Rectal Rectal exam: Present: deferred - Extremities Exam Extremities exam: Present: normal inspection, full ROM, tenderness (anterior nathaly tenderness no swelling no echymosis no drawer no deformity full knee extension maintained, ambulatory with steady gait ), normal capillary refill. Absent: pedal edema, joint swelling, calf tenderness - Expanded Lower Extremity Exam Left Knee exam: Present: full ROM, tenderness, pain w/ pronation/supination, full knee extension. Absent: swelling, abrasion, laceration, ecchymosis, deformity, crepidus, dislocation, erythema, effusion, posterior draw sign, pain/laxity with valgus, pain/laxity with varus Lower Leg exam: Present: normal inspection, full ROM Ankle exam: Present: normal inspection, full ROM Foot/Toe exam: Present: normal inspection, full ROM Neuro vascular tendon exam: Present: no vascular compromise. Absent: motor deficit, sensory deficit, tendon deficit Gait: Positive: observed and normal - Back Exam Back exam: Present: normal inspection, full ROM. Absent: tenderness, CVA tenderness (R), CVA tenderness (L), muscle spasm, paraspinal tenderness, vertebral tenderness, rash noted - Neurological Exam Neurological exam: Present: alert, oriented X3, CN II-XII intact, normal gait, reflexes normal - Psychiatric Psychiatric exam: Present: normal affect, normal mood - Skin Skin exam: Present: warm, dry, intact, normal color. Absent: rash ED Course Vital Signs 10/08/18 10/08/18 19:56 20:42 Temperature 97.9 F Pulse Rate 104 H Respiratory 18 15 Rate Blood Pressure 119/80 O2 Sat by Pulse 98 Oximetry ED Lower Extremity MDM - Medical Decision Making This is acute on chronic knee pain there has been no new injury fall or trauma plan refill naproxen and Flexeril analgesic knee exercises cryotherapy patient will follow with orthopedic surgery as scheduled next week patient verbalized agreement and understanding with discharge plan patient will be DC'd home in stable condition at this time Critical care attestation.: If time is entered above; I have spent that time in minutes in the direct care of this critically ill patient, excluding procedure time. ED Disposition Clinical Impression: Chronic pain of left knee Knee pain Qualifiers: Chronicity: acute Laterality: left Qualified Code(s): M25.562 - Pain in left knee Disposition: TO HOME OR SELFCARE Is pt being admited?: No Does the pt Need Aspirin: No Condition: Stable Instructions: Arthralgia (ED), Knee Exercises (GEN) Prescriptions: Cyclobenzaprine [Flexeril] 10 mg PO TID PRN #30 tablet PRN Reason: Muscle Spasm Menthol/Camphor [[place] Ointment] 1 applicatio TP QID PRN #1 tube PRN Reason: pain Naproxen [Naprosyn] 500 mg PO BID PRN #30 tablet PRN Reason: pain Referrals: KIM BOWIE MD [Staff Physician] - 3-5 Days Forms: Work/School Release Form(ED) Time of Disposition: 20:59
== END 2018-10-08 21:19 | disposition home or self-care (01) ==
LOC: ED 19:52
DX: M25.562 Pain in left knee (principal); R22.42 Localized swelling, mass and lump, left lower limb; I10 Essential (primary) hypertension; K21.9 Gastro-esophageal reflux disease without esophagitis; M19.90 Unspecified osteoarthritis, unspecified site; F31.9 Bipolar disorder, unspecified; Z79.899 Other long term (current) drug therapy; Z88.2 Allergy status to sulfonamides; Z88.4 Allergy status to anesthetic agent
CPT/HCPCS: 99282

== ENCOUNTER 2018-12-04 18:59 | Emergency (ER) | payer MEDICARE ==
[2018-12-04] MEDS ORDERED: NACL 0.9% 1000 ML 1,000 ML IV ONE ×2 (20:01→22:22)
[2018-12-04 21:08] LABS: Hematocrit 41.6 % (35.5-45.6); Mean Corpuscular HGB Conc 34 % (32-34); Mean Corpuscular Volume 80 fl (84-94); Platelet Count 237 K/mm3 (140-440); Red Blood Count 5.23 M/mm3 (3.65-5.03); Red Cell Distribution Width 15.3 % (13.2-15.2)
--- NOTE | 2018-12-04 21:17 | XRay Report ---
PROCEDURE: XR KNEE 3V RT TECHNIQUE: RIGHT knee radiographs, 4 or more views, including AP, lateral, and oblique views. HISTORY: fall on rt knee COMPARISONS: None . FINDINGS: Fracture (s) and/or Dislocation(s): None . Alignment: Normal . Joint space(s): Normal . Soft tissues: Normal . Bone mineralization: Normal . Foreign bodies: None . IMPRESSION: Normal Examination . This document is electronically signed by Helen Abbott DO., December 04 2018 09:15:19 PM ET
[2018-12-04 21:21] LABS: Eosinophils % (Auto) 0.1 % (0.0-4.3); Monocytes # (Auto) 0.6 K/mm3 (0.0-0.8); Monocytes % (Auto) 3.5 % (0.0-7.3)
[2018-12-04 23:02] LABS: Basophils % (Manual) 0 % (0.0-1.8); Large Platelets 1+; Total Cells Counted 100
[2018-12-04 23:03] LABS: Platelet Estimate Consistent w Auto; RBC Morphology Normal
--- NOTE | 2018-12-04 23:45 | Emergency Department Report ---
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 Patient's noted to have a blood pressure 85/47. The patient states he felt very dizzy while walking to the bathroom and he fell and hit his right knee. Patient states that he did have some diarrhea this morning which is starting to resolve. Patient states that he felt like his pass out but he was standing earlier and still feels some spinning dizziness while speaking to be lying flat. She denies any current nausea or vomiting or abdominal pain at this time. Patient states there is been no chest pain or shortness of breath. - Related Data Home Medications Medication Instructions Recorded Confirmed Last Taken Lisinopril [Zestril TAB] 10 mg PO QDAY 09/10/13 04/08/15 04/08/15 Omeprazole [Prilosec] 20 mg PO BID 09/10/13 04/08/15 04/08/15 cloNIDine [Catapres] 0.1 mg PO QHS 09/10/13 04/08/15 04/07/15 ARIPiprazole [Abilify TAB] 10 mg PO DAILY 04/08/15 04/08/15 04/07/15 Mirtazapine [Remeron] 7.5 mg PO QHS 04/08/15 04/08/15 04/07/15 carBAMazepine [TEGretol] 200 mg PO Q12HR 04/08/15 04/08/15 04/08/15 Previous Rx's Medication Instructions Recorded Last Taken Type methOCARBAMOL [Robaxin TAB] 500 mg PO Q6H PRN #20 tablet 04/08/15 Unknown Rx Gentamicin 0.3% Ophth Soln 2 drops OP Q4H 5 Days bottle 04/28/15 Unknown Rx Meloxicam 15 mg PO QDAY #30 tablet 05/04/15 Unknown Rx methOCARBAMOL [Robaxin TAB] 500 mg PO BID #10 tab 05/04/15 Unknown Rx Naproxen [Naprosyn] 500 mg PO BID #30 tablet 01/01/17 Unknown Rx Doxycycline [Vibramycin CAP] 100 mg PO Q12HR 10 Days capsule 12/05/17 Unknown Rx Ibuprofen [Motrin 800 MG tab] 800 mg PO Q8HR PRN #15 tablet 06/04/18 Unknown Rx Ibuprofen [Motrin] 600 mg PO Q8H PRN #30 tablet 06/08/18 Unknown Rx Cyclobenzaprine [Flexeril] 10 mg PO TID PRN #30 tablet 10/08/18 Unknown Rx Menthol/Camphor [[place] 1 applicatio TP QID PRN #1 tube 10/08/18 Unknown Rx Ointment] Naproxen [Naprosyn] 500 mg PO BID PRN #30 tablet 10/08/18 Unknown Rx Allergies Allergy/AdvReac Type Severity Reaction Status Date / Time codeine Allergy Anaphylaxis Verified 10/08/18 19:56 Sulfa (Sulfonamide Allergy Anaphylaxis Verified 10/08/18 19:56 Antibiotics) ED Review of Systems ROS: Stated complaint: DIZZINESS/HYPERTENSION Other details as noted in HPI Comment: All other systems reviewed and negative ED Past Medical Hx - Past Medical History Hx Hypertension: Yes Hx GERD: Yes Hx Arthritis: Yes (gout) Hx Psychiatric Treatment: Yes (PTSD, AUTISM) Additional medical history: schizoeffective disorder. bipolar - Surgical History Hx Appendectomy: Yes (1994) Additional Surgical History: right ACL repair - Social History Smoking Status: Unknown if ever smoked Substance Use Type: None - Medications Home Medications: Home Medications Medication Instructions Recorded Confirmed Last Taken Type Lisinopril [Zestril TAB] 10 mg PO QDAY 09/10/13 04/08/15 04/08/15 History Omeprazole [Prilosec] 20 mg PO BID 09/10/13 04/08/15 04/08/15 History cloNIDine [Catapres] 0.1 mg PO QHS 09/10/13 04/08/15 04/07/15 History ARIPiprazole [Abilify TAB] 10 mg PO DAILY 04/08/15 04/08/15 04/07/15 History Mirtazapine [Remeron] 7.5 mg PO QHS 04/08/15 04/08/15 04/07/15 History carBAMazepine [TEGretol] 200 mg PO Q12HR 04/08/15 04/08/15 04/08/15 History methOCARBAMOL [Robaxin TAB] 500 mg PO Q6H PRN #20 tablet 04/08/15 Unknown Rx Gentamicin 0.3% Ophth Soln 2 drops OP Q4H 5 Days bottle 04/28/15 Unknown Rx Meloxicam 15 mg PO QDAY #30 tablet 05/04/15 Unknown Rx methOCARBAMOL [Robaxin TAB] 500 mg PO BID #10 tab 05/04/15 Unknown Rx Naproxen [Naprosyn] 500 mg PO BID #30 tablet 01/01/17 Unknown Rx Doxycycline [Vibramycin CAP] 100 mg PO Q12HR 10 Days capsule 12/05/17 Unknown Rx Ibuprofen [Motrin 800 MG tab] 800 mg PO Q8HR PRN #15 tablet 06/04/18 Unknown Rx Ibuprofen [Motrin] 600 mg PO Q8H PRN #30 tablet 06/08/18 Unknown Rx Cyclobenzaprine [Flexeril] 10 mg PO TID PRN #30 tablet 10/08/18 Unknown Rx Menthol/Camphor [[place] 1 applicatio TP QID PRN #1 tube 10/08/18 Unknown Rx Ointment] Naproxen [Naprosyn] 500 mg PO BID PRN #30 tablet 10/08/18 Unknown Rx ED Physical Exam - General Limitations: No Limitations General appearance: alert, in no apparent distress - Head Head exam: Present: atraumatic, normocephalic - Eye Eye exam: Present: normal appearance - ENT ENT exam: Present: mucous membranes moist - Neck Neck exam: Present: normal inspection - Respiratory Respiratory exam: Present: normal lung sounds bilaterally. Absent: respiratory distress, wheezes, rales, rhonchi - Cardiovascular Cardiovascular Exam: Present: regular rate, normal rhythm. Absent: systolic murmur, diastolic murmur, rubs, gallop - GI/Abdominal GI/Abdominal exam: Present: soft, normal bowel sounds. Absent: distended, tenderness, guarding, rebound - Rectal Rectal exam: Present: deferred - Extremities Exam Extremities exam: Present: normal inspection, tenderness (r knee) - Back Exam Back exam: Present: normal inspection - Neurological Exam Neurological exam: Present: alert, oriented X3 - Psychiatric Psychiatric exam: Present: normal affect, normal mood - Skin Skin exam: Present: warm, dry, intact, normal color. Absent: rash ED Course Vital Signs 12/04/18 12/04/18 19:28 23:18 Temperature 97.6 F 97.4 F L Pulse Rate 86 88 Respiratory 18 14 Rate Blood Pressure 99/40 Blood Pressure 112/62 [Right] O2 Sat by Pulse 100 100 Oximetry ED Medical Decision Making - Lab Data Result diagrams: 12/04/18 20:26 12/04/18 20:26 Lab Results 12/04/18 12/04/18 Range/Units 20:26 20:26 WBC 17.7 H (4.5-11.0) K/mm3 RBC 5.23 H (3.65-5.03) M/mm3 Hgb 14.0 (11.8-15.2) gm/dl Hct 41.6 (35.5-45.6) % MCV 80 L (84-94) fl MCH 27 L (28-32) pg MCHC 34 (32-34) % RDW 15.3 H (13.2-15.2) % Plt Count 237 (140-440) K/mm3 Ward % (Auto) 3.5 (0.0-7.3) % Eos % (Auto) 0.1 (0.0-4.3) % Ward # 0.6 (0.0-0.8) K/mm3 Eos # 0.0 (0.0-0.4) K/mm3 Baso # 0.0 (0.0-0.1) K/mm3 Add Manual Diff Complete Total Counted 100 Seg Neuts % (Manual) 94.0 H (40.0-70.0) % Band Neutrophils % 0 % Lymphocytes % (Manual) 4.0 L (13.4-35.0) % Reactive Lymphs % (Man) 0 % Monocytes % (Manual) 1.0 (0.0-7.3) % Eosinophils % (Manual) 1.0 (0.0-4.3) % Basophils % (Manual) 0 (0.0-1.8) % Metamyelocytes % 0 % Myelocytes % 0 % Promyelocytes % 0 % Blast Cells % 0 % Nucleated RBC % Not Reportable Seg Neutrophils # 15.7 H (1.8-7.7) K/mm3 Seg Neutrophils # Man 16.6 H (1.8-7.7) K/mm3 Band Neutrophils # 0.0 K/mm3 Lymphocytes # (Manual) 0.7 L (1.2-5.4) K/mm3 Abs React Lymphs (Man) 0.0 K/mm3 Monocytes # (Manual) 0.2 (0.0-0.8) K/mm3 Eosinophils # (Manual) 0.2 (0.0-0.4) K/mm3 Basophils # (Manual) 0.0 (0.0-0.1) K/mm3 Metamyelocytes # 0.0 K/mm3 Myelocytes # 0.0 K/mm3 Promyelocytes # 0.0 K/mm3 Blast Cells # 0.0 K/mm3 WBC Morphology Not Reportable Hypersegmented Neuts Not Reportable Hyposegmented Neuts Not Reportable Hypogranular Neuts Not Reportable Smudge Cells Not Reportable Toxic Granulation Not Reportable Toxic Vacuolation Not Reportable Dohle Bodies Not Reportable Pelger-Huet Anomaly Not Reportable Mark Rods Not Reportable Platelet Estimate Consistent w auto Clumped Platelets Not Reportable Plt Clumps, EDTA Not Reportable Large Platelets 1+ Giant Platelets Not Reportable Platelet Satelliting Not Reportable Plt Morphology Comment Not Reportable RBC Morphology Normal Dimorphic RBCs Not Reportable Polychromasia Not Reportable Hypochromasia Not Reportable Poikilocytosis Not Reportable Anisocytosis Not Reportable Microcytosis Not Reportable Macrocytosis Not Reportable Spherocytes Not Reportable Pappenheimer Bodies Not Reportable Sickle Cells Not Reportable Target Cells Not Reportable Tear Drop Cells Not Reportable Ovalocytes Not Reportable Helmet Cells Not Reportable [place] Bodies Not Reportable [place] Rings Not Reportable [place] Cells Not Reportable Bite Cells Not Reportable Crenated Cell Not Reportable Elliptocytes Not Reportable Acanthocytes (Spur) Not Reportable Rouleaux Not Reportable Hemoglobin C Crystals Not Reportable Schistocytes Not Reportable Malaria parasites Not Reportable Jose F Bodies Not Reportable Hem Pathologist Commnt No Sodium 137 (137-145) mmol/L Potassium 4.2 (3.6-5.0) mmol/L Chloride 97.5 L (98-107) mmol/L Carbon Dioxide 22 (22-30) mmol/L Anion Gap 22 mmol/L BUN 16 (9-20) mg/dL Creatinine 2.1 H (0.8-1.5) mg/dL Estimated GFR 36 ml/min BUN/Creatinine Ratio 8 % Glucose 132 H (75-100) mg/dL Calcium 9.0 (8.4-10.2) mg/dL - Radiology Data [facility] [address] [place] [address] XRay Report Signed Patient: JENNA GAMBLE MR#: [id number] : 1980 Acct:[id number] Age/Sex: 38 / M ADM Date: 12/04/18 Loc: ED Attending Dr: Ordering Physician: ANGLE ABBOTT MD Date of Service: 12/04/18 Procedure(s): XR knee 3V RT Accession Number(s): [id number] cc: ANGEL ABBOTT MD Fluoro Time In Minutes: PROCEDURE: XR KNEE 3V RT TECHNIQUE: RIGHT knee radiographs, 4 or more views, including AP, lateral, and oblique views. HISTORY: fall on rt knee COMPARISONS: None . FINDINGS: Fracture (s) and/or Dislocation(s): None . Alignment: Normal . Joint space(s): Normal . Soft tissues: Normal . Bone mineralization: Normal . Foreign bodies: None . IMPRESSION: Normal Examination . This document is electronically signed by Helen Abbott DO., December 04 2018 09:15:19 PM ET Transcribed By: [facility] Dictated By: HELEN ABBOTT MD Electronically Authenticated By: HELEN ABBOTT MD Signed Date/Time: 12/04/182116 - Medical Decision Making Patients with a slightly elevated white blood cell count. This may be secondary to his fall. A review of the patient's past laboratory studies. Patient's baseline white count is 13. Patient is showing no signs of infection at this time. Patient's was hydrated and blood pressure did improve. Patient will be discharged back to [place]. Critical care attestation.: If time is entered above; I have spent that time in minutes in the direct care of this critically ill patient, excluding procedure time. ED Disposition Clinical Impression: Dehydration, Knee contusion, Orthostatic dizziness Disposition: DC-01 TO HOME OR SELFCARE Is pt being admited?: No Does the pt Need Aspirin: No Condition: Stable Instructions: Dehydration (ED) Referrals: [facility] [Primary Care Provider] - 3-5 Days Time of Disposition: 23:45
[2018-12-05 01:14] VITALS: BP 122/74
== END 2018-12-05 02:11 | disposition home or self-care (01) ==
LOC: ED 18:59
DX: E86.0 Dehydration (principal); S80.01XA Contusion of right knee, initial encounter; W19.XXXA Unspecified fall, initial encounter; Y93.89 Activity, other specified; Y92.89 Other specified places as the place of occurrence of the external cause; Y99.8 Other external cause status
CPT/HCPCS: 36415; 73562; 80048; 85007; 85025; 96360; 96361; 99284; J7030

== ENCOUNTER 2019-06-24 20:19 | Emergency (ER) | payer MEDICARE ==
--- NOTE | 2019-06-24 20:41 | Event Note ---
ED Screening Note Date of service: 06/24/19 Time: 20:39 ED Screening Note: This is a 39 y.o. M. that presents to the ER with swelling and pain to right ankle. Patient states he was playing around with a friend and twisted his ankle a couple days ago. Reports increasing pain with weight. This initial assessment/diagnostic orders/clinical plan/treatment(s) is/are subject to change based on patients health status, clinical progression and re- assessment by fellow clinical providers in the ED. Further treatment and workup at subsequent clinical providers discretion. Patient/guardian urged not to elope from the ED as their condition may be serious if not clinically assessed and managed. Initial orders include: XR right ankle.
[2019-06-24] MEDS ORDERED: NORCO 5/325 PO ONE (21:09)
[2019-06-24] MEDS ORDERED: IBUPROFEN PO ONE (21:09)
--- NOTE | 2019-06-24 21:20 | XRay Report ---
RIGHT ANKLE 3 VIEWS INDICATION: swelling and pain, r/o fx. COMPARISON: 01/01/2017. FINDINGS: No acute, displaced fracture or dislocation is seen. There is a well-corticated 7 mm ossific density in the lateral hindfoot which in retrospect was present on the prior exam and may be a chronic, ununi yudelka fracture fragment. There is osteoarthrosis within the hindfoot/ankle which may be posttraumatic, given the patient's age. There is mild soft tissue swelling about the ankle. No ankle mortise widenin g is seen. IMPRESSION: 1. No acute findings. Signer Name: Lawrence Griffin MD Signed: 06/24/2019 9:16 PM Workstation Name: [id number]
--- NOTE | 2019-06-24 21:44 | Emergency Department Report ---
HPI - General Chief Complaint: Extremity Injury, Upper Time Seen by Provider: 06/24/19 20:38 - HPI HPI: Room 43 The patient is a 39-year-old male presenting with a chief complaint of right foot and ankle pain. The patient states approximately 3 days ago he stepped into a hole injuring his right foot and ankle. The patient states he tried to tough it out and was limping but today he had difficulty placing his shoe on secondary to the swelling and pain. ED Past Medical Hx - Past Medical History Hx Hypertension: Yes Hx GERD: Yes Hx Arthritis: Yes (gout) Hx Psychiatric Treatment: Yes (PTSD, AUTISM) Additional medical history: schizoeffective disorder. bipolar - Surgical History Hx Appendectomy: Yes (1994) Additional Surgical History: right ACL repair - Family History Family history: no significant - Social History Smoking Status: Never Smoker Substance Use Type: None (denies illicit drug use) - Medications Home Medications: Home Medications Medication Instructions Recorded Confirmed Last Taken Type Lisinopril [Zestril TAB] 10 mg PO QDAY 09/10/13 04/08/15 04/08/15 History Omeprazole [Prilosec] 20 mg PO BID 09/10/13 04/08/15 04/08/15 History cloNIDine [Catapres] 0.1 mg PO QHS 09/10/13 04/08/15 04/07/15 History ARIPiprazole [Abilify TAB] 10 mg PO DAILY 04/08/15 04/08/15 04/07/15 History Mirtazapine [Remeron] 7.5 mg PO QHS 04/08/15 04/08/15 04/07/15 History carBAMazepine [TEGretol] 200 mg PO Q12HR 04/08/15 04/08/15 04/08/15 History methOCARBAMOL [Robaxin TAB] 500 mg PO Q6H PRN #20 tablet 04/08/15 Unknown Rx Gentamicin 0.3% Ophth Soln 2 drops OP Q4H 5 Days bottle 04/28/15 Unknown Rx Meloxicam 15 mg PO QDAY #30 tablet 05/04/15 Unknown Rx methOCARBAMOL [Robaxin TAB] 500 mg PO BID #10 tab 05/04/15 Unknown Rx Naproxen [Naprosyn] 500 mg PO BID #30 tablet 01/01/17 Unknown Rx DOXYCYCLINE Hyclate [Vibramycin 100 mg PO Q12HR 10 Days capsule 12/05/17 Unknown Rx CAP] Ibuprofen [Motrin] 600 mg PO Q8H PRN #30 tablet 06/08/18 Unknown Rx Cyclobenzaprine [Flexeril] 10 mg PO TID PRN #30 tablet 10/08/18 Unknown Rx Menthol/Camphor [[place] 1 applicatio TP QID PRN #1 tube 10/08/18 Unknown Rx Ointment] Naproxen [Naprosyn] 500 mg PO BID PRN #30 tablet 10/08/18 Unknown Rx Ibuprofen [Motrin 800 MG tab] 800 mg PO Q8HR PRN #15 tablet 01/28/19 Unknown Rx HYDROcodone/APAP 5-325 [[place] 1 - 2 each PO Q6HR PRN #7 tablet 06/24/19 Unknown Rx 5/325] Ibuprofen [Motrin 800 MG tab] 800 mg PO Q8HR PRN #20 tablet 06/24/19 Unknown Rx ED Review of Systems ROS: Stated complaint: RT ANKLE/FOOT SWOLLEN/PAINFUL Other details as noted in HPI Constitutional: no symptoms reported Eyes: denies: eye pain ENT: denies: throat pain Respiratory: no symptoms reported Cardiovascular: denies: chest pain Endocrine: no symptoms reported Gastrointestinal: denies: abdominal pain Genitourinary: denies: dysuria Musculoskeletal: arthralgia Neurological: denies: headache Physical Exam - Physical Exam Vital Signs: Vital Signs 06/24/19 06/24/19 20:27 21:16 Temperature 99.2 F Pulse Rate 121 H Respiratory 20 20 Rate Blood Pressure 148/96 O2 Sat by Pulse 96 Oximetry Physical Exam: GENERAL: The patient is well-developed well-nourished male sitting in wheelchair not appearing to be in acute distress. [] HEENT: Normocephalic. Atraumatic. Extraocular motions are intact. Patient has moist mucous membranes. NECK: Supple. Trachea midline CHEST/LUNGS: Clear to auscultation. There is no respiratory distress noted. HEART/CARDIOVASCULAR: Regular. There is no tachycardia. 2+ right DP ABDOMEN: Abdomen is soft, nontender. Patient has normal bowel sounds. There is no abdominal distention. SKIN: There is no rash. There is edema of the right foot and ankle there is no diaphoresis. NEURO: The patient is awake, alert, and oriented. The patient is cooperative. The patient has no focal neurologic deficits. The patient has normal speech MUSCULOSKELETAL: There is tenderness to palpation of the ankle and dorsum of the right foot. ED Course Vital Signs 06/24/19 06/24/19 20:27 21:16 Temperature 99.2 F Pulse Rate 121 H Respiratory 20 20 Rate Blood Pressure 148/96 O2 Sat by Pulse 96 Oximetry ED Medical Decision Making - Radiology Data Radiology results: report reviewed (right ankle x-ray), image reviewed (right ankle x-ray, right foot x-ray) interpreted by me: Right ankle x-ray-no acute fracture Right foot x-ray- no acute fracture seen [address] [address] XRay Report Signed Patient: JENNA GAMBLE MR#: [id number] : 1980 Acct:[id number] Age/Sex: 39 / M ADM Date: 06/24/19 Loc: ED Attending Dr: Ordering Physician: DANA LOZADA Date of Service: 06/24/19 Procedure(s): XR ankle 3+V RT Accession Number(s): [id number] cc: DANA LOZADA Fluoro Time In Minutes: RIGHT ANKLE 3 VIEWS INDICATION: swelling and pain, r/o fx. COMPARISON: 01/01/2017. FINDINGS: No acute, displaced fracture or dislocation is seen. There is a well-corticated 7 mm ossific density in the lateral hindfoot which in retrospect was present on the prior exam and may be a chronic, ununited fracture fragment. There is osteoarthrosis within the hindfoot/ankle which may be posttraumatic, given the patient's age. There is mild soft tissue swelling about the ankle. No ankle mortise widening is seen. IMPRESSION: 1. No acute findings. Signer Name: Lawrence Griffin MD Signed: 06/24/2019 9:16 PM Workstation Name: [id number] Transcribed By: JOSHUA Dictated By: Lawrence Griffin MD Electronically Authenticated By: Lawrence Griffin MD Signed Date/Time: 06/24/192115 DD/ 13 TD/TT: [address] [address] XRay Report Signed Patient: JENNA GAMBLE MR#: [id number] : 1980 Acct:[id number] Age/Sex: 39 / M ADM Date: 06/24/19 Loc: ED Attending Dr: Ordering Physician: GWEN NEVILLE MD Date of Service: 06/24/19 Procedure(s): XR foot 3+V RT Accession Number(s): [id number] cc: GWEN NEVILLE MD Fluoro Time In Minutes: RIGHT FOOT 3 VIEWS INDICATION: pain after stepping in a hole. COMPARISON: 01/01/2017. FINDINGS: No acute, displaced fracture or dislocation is seen. There is mild degenerative change in the right foot/hindfoot. No foreign bodies. IMPRESSION: 1. No acute findings. Signer Name: Lawrence Griffin MD Signed: 06/24/2019 10:11 PM Workstation Name: [id number] Transcribed By: JOSHUA Dictated By: Lawrence Griffin MD Electronically Authenticated By: Lawrence Griffin MD Signed Date/Time: 06/24/192210 DD/ 09 TD/TT: - Differential Diagnosis ankle sprain, ankle fracture Critical care attestation.: If time is entered above; I have spent that time in minutes in the direct care of this critically ill patient, excluding procedure time. ED Disposition Clinical Impression: Right ankle sprain, Contusion of right foot Disposition: DC-01 TO HOME OR SELFCARE Is pt being admited?: No Does the pt Need Aspirin: No Condition: Stable Instructions: Ankle Sprain (ED) Prescriptions: Ibuprofen [Motrin 800 MG tab] 800 mg PO Q8HR PRN #20 tablet PRN Reason: Pain, Moderate (4-6) HYDROcodone/APAP 5-325 [[place] 5/325] 1 - 2 each PO Q6HR PRN #7 tablet PRN Reason: Pain Referrals: KIM CARRILLO MD [Staff Physician] - 3-5 Days (Dr. Carrillo is an orthopedic surgeon. Please follow-up with him for further evaluation) Time of Disposition: 22:26
--- NOTE | 2019-06-24 22:15 | XRay Report ---
RIGHT FOOT 3 VIEWS INDICATION: pain after stepping in a hole. COMPARISON: 01/01/2017. FINDINGS: No acute, displaced fracture or dislocation is seen. There is mild degenerative change in the right f oot/hindfoot. No foreign bodies. IMPRESSION: 1. No acute findings. Signer Name: Lawrence Griffin MD Signed: 06/24/2019 10:11 PM Workstation Name: [id number]
[2019-06-24 23:08] VITALS: BP 131/82
== END 2019-06-24 22:51 | disposition home or self-care (01) ==
LOC: ED 20:19
DX: S93.401A Sprain of unspecified ligament of right ankle, initial encounter (principal); I10 Essential (primary) hypertension; K21.9 Gastro-esophageal reflux disease without esophagitis; M19.90 Unspecified osteoarthritis, unspecified site; F31.9 Bipolar disorder, unspecified; F25.9 Schizoaffective disorder, unspecified; X50.9XXA Other and unspecified overexertion or strenuous movements or postures, initial encounter; Y93.89 Activity, other specified; Y92.89 Other specified places as the place of occurrence of the external cause; Y99.8 Other external cause status

== ENCOUNTER 2019-07-29 19:30 | Emergency (ER) | payer MEDICARE ==
--- NOTE | 2019-07-29 19:42 | Event Note ---
ED Screening Note Date of service: 07/29/19 Time: 19:37 ED Screening Note: This is a 39 y.o. M. that presents to the ER with right shoulder pain for 1.5 weeks. Reports pain is radiating sharp pain from right shoulder to right wrist. Denies injury, swelling, bruising, numbness or tingling. This initial assessment/diagnostic orders/clinical plan/treatment(s) is/are subject to change based on patients health status, clinical progression and re- assessment by fellow clinical providers in the ED. Further treatment and workup at subsequent clinical providers discretion. Patient/guardian urged not to elope from the ED as their condition may be serious if not clinically assessed and managed. Initial orders include: XR right shoulder
--- NOTE | 2019-07-29 20:24 | XRay Report ---
XR shoulder 2+V RT INDICATION / CLINICAL INFORMATION: RT SHOULDER PAIN. COMPARISON: None available. FINDINGS: BONES/JOINT(S): No acute fracture or subluxation. No significant degenerative changes. SOFT TISSUES: No significant abnormality. ADDITIONAL FINDINGS: None. Signer Name: Gerard Quevedo MD Signed: 07/29/2019 8:20 PM Workstation Name: [email or web address]
[2019-07-30 00:27] VITALS: BP 127/76
[2019-07-30] MEDS ORDERED: IBUPROFEN 800 MG TAB PO ONE (00:28)
[2019-07-30] MEDS ORDERED: CYCLOBENZAPRINE 10 MG TAB PO ONE (00:28)
--- NOTE | 2019-07-30 00:59 | Emergency Department Report ---
Upper Extremity - HPI Chief Complaint: Extremity Injury, Upper Stated Complaint: CHEST PAIN, RT ARM PAIN, SHOULDER AND WRIST PAIN Time Seen by Provider: 07/29/19 19:37 Upper Extremity: Right Shoulder Occurred When: >5 Days Mechanism: Other (chronic) Severity: moderate Symptoms: Yes Pain with Movement, Yes Limited Range of Movement, No Deformity, No Numbness, No Weakness, No Swelling, No Bruising/Ecchymosis, No Laceration or Abrasion Other History: 39-year-old male presents to ED with right shoulder pain 1 week. Patient states pain radiates down to the right wrist. Worse with movement of the shoulder. He denies any weakness or numbness in his right arm. Patient reports he has had similar pain before, states it is due to a previous shoulder injury from football years ago. Patient denies any acute trauma. Denies chest pain. ED Review of Systems ROS: Stated complaint: CHEST PAIN, RT ARM PAIN, SHOULDER AND WRIST PAIN Other details as noted in HPI Comment: All other systems reviewed and negative Constitutional: denies: chills, fever Cardiovascular: denies: chest pain Musculoskeletal: as per HPI Neurological: denies: weakness, numbness, paresthesias ED Past Medical Hx - Past Medical History Previous Medical History?: Yes Hx Hypertension: Yes Hx GERD: Yes Hx Arthritis: Yes (gout) Hx Psychiatric Treatment: Yes (PTSD, AUTISM) Additional medical history: schizoeffective disorder. bipolar - Surgical History Hx Appendectomy: Yes (1994) Additional Surgical History: right ACL repair - Social History Smoking Status: Never Smoker Substance Use Type: None - Medications Home Medications: Home Medications Medication Instructions Recorded Confirmed Last Taken Type Lisinopril [Zestril TAB] 10 mg PO QDAY 09/10/13 04/08/15 04/08/15 History Omeprazole [Prilosec] 20 mg PO BID 09/10/13 04/08/15 04/08/15 History cloNIDine [Catapres] 0.1 mg PO QHS 09/10/13 04/08/15 04/07/15 History ARIPiprazole [Abilify TAB] 10 mg PO DAILY 04/08/15 04/08/15 04/07/15 History Mirtazapine [Remeron] 7.5 mg PO QHS 04/08/15 04/08/15 04/07/15 History carBAMazepine [TEGretol] 200 mg PO Q12HR 04/08/15 04/08/15 04/08/15 History methOCARBAMOL [Robaxin TAB] 500 mg PO Q6H PRN #20 tablet 04/08/15 Unknown Rx Gentamicin 0.3% Ophth Soln 2 drops OP Q4H 5 Days bottle 04/28/15 Unknown Rx Meloxicam 15 mg PO QDAY #30 tablet 05/04/15 Unknown Rx methOCARBAMOL [Robaxin TAB] 500 mg PO BID #10 tab 05/04/15 Unknown Rx Naproxen [Naprosyn] 500 mg PO BID #30 tablet 01/01/17 Unknown Rx DOXYCYCLINE Hyclate [Vibramycin 100 mg PO Q12HR 10 Days capsule 12/05/17 Unknown Rx CAP] Ibuprofen [Motrin] 600 mg PO Q8H PRN #30 tablet 06/08/18 Unknown Rx Cyclobenzaprine [Flexeril] 10 mg PO TID PRN #30 tablet 10/08/18 Unknown Rx Menthol/Camphor [[place] 1 applicatio TP QID PRN #1 tube 10/08/18 Unknown Rx Ointment] Naproxen [Naprosyn] 500 mg PO BID PRN #30 tablet 10/08/18 Unknown Rx Ibuprofen [Motrin 800 MG tab] 800 mg PO Q8HR PRN #15 tablet 01/28/19 Unknown Rx HYDROcodone/APAP 5-325 [[place] 1 - 2 each PO Q6HR PRN #7 tablet 06/24/19 Unknown Rx 5/325] Ibuprofen [Motrin 800 MG tab] 800 mg PO Q8HR PRN #20 tablet 06/24/19 Unknown Rx Naproxen [Naprosyn] 500 mg PO BID #20 tablet 07/30/19 Unknown Rx methOCARBAMOL [Robaxin TAB] 500 mg PO Q8HR PRN #20 tablet 07/30/19 Unknown Rx Upper Extremity Exam - Exam General: Vital signs noted. No distress. Alert and acting appropriately. Head and Torso: No Neck Tenderness, No Chest/Lungs Abnormality, No Abdominal Tenderness Shoulder Exam: Yes Shoulder Tenderness, No Clavicle Tenderness, No Normal Range of Motion in Shoulder, No Shoulder Deformity, No AC Joint Tenderness Arm Exam: No Arm/Humerus Tenderness, No Arm Deformity Elbow: Yes Normal Range of Motion in Elbow, No Elbow Tenderness, No Elbow Deformity Forearm: No Forearm Tenderness, No Forearm Deformity, No Pain with Pronation, No Pain with Supination Wrist: Yes Normal ROM in Wrist, No Wrist Tenderness, No Wrist Deformity Hand: Yes Normal ROM in Digit(s), No Hand Tenderness, No Hand Deformity, No Digit Tenderness, No Digit(s) Deformity CMS Exam: Yes Normal Distal Pulses, Yes Normal Capillary Refill, Yes Normal Distal Sensation, No Broken Skin ED Course Vital Signs 07/29/19 07/30/19 19:36 00:26 Temperature 98.6 F 98.7 F Pulse Rate 110 H 86 Respiratory 18 16 Rate Blood Pressure 149/99 Blood Pressure 127/76 [Left] O2 Sat by Pulse 96 96 Oximetry ED Medical Decision Making - Radiology Data Radiology results: report reviewed, image reviewed - Differential Diagnosis tendinitis, radiculopathy Critical care attestation.: If time is entered above; I have spent that time in minutes in the direct care of this critically ill patient, excluding procedure time. ED Disposition Clinical Impression: Right rotator cuff tendinitis Disposition: TO HOME OR SELFCARE Is pt being admited?: No Condition: Stable Instructions: Rotator Cuff Tendinitis (ED) Prescriptions: Naproxen [Naprosyn] 500 mg PO BID #20 tablet methOCARBAMOL [Robaxin TAB] 500 mg PO Q8HR PRN #20 tablet PRN Reason: Muscle Spasm Referrals: PRIMARY CAREMD [Primary Care Provider] - 3-5 Days KIM BOWIE MD [Staff Physician] - 3-5 Days Time of Disposition: 00:59
== END 2019-07-30 01:20 | disposition home or self-care (01) ==
LOC: ED 19:30
DX: M75.121 Complete rotator cuff tear or rupture of right shoulder, not specified as traumatic (principal); I10 Essential (primary) hypertension; K21.9 Gastro-esophageal reflux disease without esophagitis; M10.9 Gout, unspecified; F43.10 Post-traumatic stress disorder, unspecified; F84.0 Autistic disorder; F25.9 Schizoaffective disorder, unspecified; F31.9 Bipolar disorder, unspecified; Z90.49 Acquired absence of other specified parts of digestive tract; Z79.899 Other long term (current) drug therapy; Z79.1 Long term (current) use of non-steroidal anti-inflammatories (NSAID); Z88.5 Allergy status to narcotic agent; Z88.2 Allergy status to sulfonamides; Z91.018 Allergy to other foods
CPT/HCPCS: 99283

== ENCOUNTER 2019-11-17 13:17 | Emergency (ER) | payer MEDICARE ==
[2019-11-17 16:24] VITALS: BP 151/91
--- NOTE | 2019-11-17 16:24 | Event Note ---
ED Screening Note Date of service: 11/17/19 Time: 16:20 ED Screening Note: This is a 39 y.o. M. with right knee pain and swelling for 1 week. PMH gout, adult autisim, schizoaffective disorder with depression, and PTSD. States at [place] lodge and sent here. States pain worse than usual gout flare. Pain worse with weight bearing. Denies injury This initial assessment/diagnostic orders/clinical plan/treatment(s) is/are subject to change based on patients health status, clinical progression and re- assessment by fellow clinical providers in the ED. Further treatment and workup at subsequent clinical providers discretion. Patient/guardian urged not to elope from the ED as their condition may be serious if not clinically assessed and managed. Initial orders include: XR right knee
--- NOTE | 2019-11-17 17:03 | XRay Report ---
Right knee 2 views INDICATION: Right knee pain. IMPRESSION: Minimal prepatellar soft tissue edema. No fracture or subluxation. Signer Name: Salo Monroe MD Signed: 11/17/2019 4:59 PM Workstation Name: [id number]
[2019-11-17] MEDS ORDERED: COLCHICINE 0.6 MG CAP PO ONE (17:15)
[2019-11-17] MEDS ORDERED: dexAMETHasone 20 MG/5 ML VIAL IM ONE (17:15)
[2019-11-17] MEDS ORDERED: KETOROLAC 30 MG/1 ML INJ IM ONE (17:18)
--- NOTE | 2019-11-17 18:04 | Emergency Department Report ---
ED General Adult HPI - General Chief complaint: Extremity Injury, Lower Stated complaint: LEFT KNEE PAIN Time Seen by Provider: 11/17/19 16:19 Source: patient Mode of arrival: Ambulatory Limitations: No Limitations - History of Present Illness Initial comments: This is a 39-year-old male with a history of gout who presents the ED complaining of right knee pain and swelling for the past week. Patient states he has not had a gouty flareup in a couple years. Patient does state that he has been doing really well not eating red meats try to keep away from getting a gouty flareup. Patient denies taking medication for gout. Patient denies any injury, trauma, falls. Severity scale (0 -10): 9 - Related Data Home Medications Medication Instructions Recorded Confirmed Last Taken Omeprazole [Prilosec] 20 mg PO BID 09/10/13 04/08/15 04/08/15 cloNIDine [Catapres] 0.1 mg PO QHS 09/10/13 04/08/15 04/07/15 lisinopriL [Zestril TAB] 10 mg PO QDAY 09/10/13 04/08/15 04/08/15 ARIPiprazole [Abilify TAB] 10 mg PO DAILY 04/08/15 04/08/15 04/07/15 Mirtazapine [Remeron] 7.5 mg PO QHS 04/08/15 04/08/15 04/07/15 carBAMazepine [TEGretol] 200 mg PO Q12HR 04/08/15 04/08/15 04/08/15 Previous Rx's Medication Instructions Recorded Last Taken Type methOCARBAMOL [Robaxin TAB] 500 mg PO Q6H PRN #20 tablet 04/08/15 Unknown Rx Gentamicin 0.3% Ophth Soln 2 drops OP Q4H 5 Days bottle 04/28/15 Unknown Rx Meloxicam 15 mg PO QDAY #30 tablet 05/04/15 Unknown Rx methOCARBAMOL [Robaxin TAB] 500 mg PO BID #10 tab 05/04/15 Unknown Rx Naproxen [Naprosyn] 500 mg PO BID #30 tablet 01/01/17 Unknown Rx DOXYCYCLINE Hyclate [Vibramycin 100 mg PO Q12HR 10 Days capsule 12/05/17 Unknown Rx CAP] Ibuprofen [Motrin] 600 mg PO Q8H PRN #30 tablet 06/08/18 Unknown Rx Cyclobenzaprine [Flexeril] 10 mg PO TID PRN #30 tablet 10/08/18 Unknown Rx Menthol/Camphor [[place] 1 applicatio TP QID PRN #1 tube 10/08/18 Unknown Rx Ointment] Naproxen [Naprosyn] 500 mg PO BID PRN #30 tablet 10/08/18 Unknown Rx Ibuprofen [Motrin 800 MG tab] 800 mg PO Q8HR PRN #15 tablet 01/28/19 Unknown Rx HYDROcodone/APAP 5-325 [[place] 1 - 2 each PO Q6HR PRN #7 tablet 06/24/19 Unknown Rx 5/325] Ibuprofen [Motrin 800 MG tab] 800 mg PO Q8HR PRN #20 tablet 06/24/19 Unknown Rx methOCARBAMOL [Robaxin TAB] 500 mg PO Q8HR PRN #20 tablet 07/30/19 Unknown Rx Clindamycin [Clindamycin CAP] 300 mg PO Q8H #21 cap 11/17/19 Unknown Rx Colchicine 0.6 mg PO DAILY #20 capsule 11/17/19 Unknown Rx Naproxen [Naprosyn TAB] 500 mg PO BID #20 tablet 11/17/19 Unknown Rx predniSONE [Deltasone] 20 mg PO QDAY #5 tab 11/17/19 Unknown Rx Allergies Allergy/AdvReac Type Severity Reaction Status Date / Time codeine Allergy Anaphylaxis Verified 10/08/18 19:56 onion Allergy Anaphylaxis Verified 01/28/19 21:16 Sulfa (Sulfonamide Allergy Anaphylaxis Verified 10/08/18 19:56 Antibiotics) ED Review of Systems ROS: Stated complaint: LEFT KNEE PAIN Other details as noted in HPI Comment: All other systems reviewed and negative ED Past Medical Hx - Past Medical History Previous Medical History?: Yes Hx Hypertension: Yes Hx GERD: Yes Hx Arthritis: Yes (gout) Hx Psychiatric Treatment: Yes (PTSD, AUTISM, schizoaffective disorder) Additional medical history: schizoeffective disorder. bipolar - Surgical History Past Surgical History?: Yes Hx Appendectomy: Yes (1994) Additional Surgical History: right ACL repair - Social History Smoking Status: Never Smoker Substance Use Type: None - Medications Home Medications: Home Medications Medication Instructions Recorded Confirmed Last Taken Type Omeprazole [Prilosec] 20 mg PO BID 09/10/13 04/08/15 04/08/15 History cloNIDine [Catapres] 0.1 mg PO QHS 09/10/13 04/08/15 04/07/15 History lisinopriL [Zestril TAB] 10 mg PO QDAY 09/10/13 04/08/15 04/08/15 History ARIPiprazole [Abilify TAB] 10 mg PO DAILY 04/08/15 04/08/15 04/07/15 History Mirtazapine [Remeron] 7.5 mg PO QHS 04/08/15 04/08/15 04/07/15 History carBAMazepine [TEGretol] 200 mg PO Q12HR 04/08/15 04/08/15 04/08/15 History methOCARBAMOL [Robaxin TAB] 500 mg PO Q6H PRN #20 tablet 04/08/15 Unknown Rx Gentamicin 0.3% Ophth Soln 2 drops OP Q4H 5 Days bottle 04/28/15 Unknown Rx Meloxicam 15 mg PO QDAY #30 tablet 05/04/15 Unknown Rx methOCARBAMOL [Robaxin TAB] 500 mg PO BID #10 tab 05/04/15 Unknown Rx Naproxen [Naprosyn] 500 mg PO BID #30 tablet 01/01/17 Unknown Rx DOXYCYCLINE Hyclate [Vibramycin 100 mg PO Q12HR 10 Days capsule 12/05/17 Unknown Rx CAP] Ibuprofen [Motrin] 600 mg PO Q8H PRN #30 tablet 06/08/18 Unknown Rx Cyclobenzaprine [Flexeril] 10 mg PO TID PRN #30 tablet 10/08/18 Unknown Rx Menthol/Camphor [[place] 1 applicatio TP QID PRN #1 tube 10/08/18 Unknown Rx Ointment] Naproxen [Naprosyn] 500 mg PO BID PRN #30 tablet 10/08/18 Unknown Rx Ibuprofen [Motrin 800 MG tab] 800 mg PO Q8HR PRN #15 tablet 01/28/19 Unknown Rx HYDROcodone/APAP 5-325 [[place] 1 - 2 each PO Q6HR PRN #7 tablet 06/24/19 Unknown Rx 5/325] Ibuprofen [Motrin 800 MG tab] 800 mg PO Q8HR PRN #20 tablet 06/24/19 Unknown Rx methOCARBAMOL [Robaxin TAB] 500 mg PO Q8HR PRN #20 tablet 07/30/19 Unknown Rx Clindamycin [Clindamycin CAP] 300 mg PO Q8H #21 cap 11/17/19 Unknown Rx Colchicine 0.6 mg PO DAILY #20 capsule 11/17/19 Unknown Rx Naproxen [Naprosyn TAB] 500 mg PO BID #20 tablet 11/17/19 Unknown Rx predniSONE [Deltasone] 20 mg PO QDAY #5 tab 11/17/19 Unknown Rx ED Physical Exam - General Limitations: No Limitations General appearance: alert, in no apparent distress - Head Head exam: Present: atraumatic, normocephalic - Eye Eye exam: Present: normal appearance - ENT ENT exam: Present: mucous membranes moist - Neck Neck exam: Present: normal inspection - Respiratory Respiratory exam: Present: normal lung sounds bilaterally. Absent: respiratory distress - Cardiovascular Cardiovascular Exam: Present: regular rate, normal rhythm. Absent: systolic murmur, diastolic murmur, rubs, gallop - GI/Abdominal GI/Abdominal exam: Present: soft, normal bowel sounds - Rectal Rectal exam: Present: deferred - Extremities Exam Extremities exam: Present: normal inspection, full ROM, tenderness (Mild tenderness to palpation of the right knee joint), joint swelling (Mild swelling), other (Warm to touch, mild erythematous.) - Back Exam Back exam: Present: normal inspection, full ROM - Neurological Exam Neurological exam: Present: alert, oriented X3, normal gait - Psychiatric Psychiatric exam: Present: normal affect, normal mood - Skin Skin exam: Present: warm, dry, intact, normal color. Absent: rash ED Course Vital Signs 11/17/19 11/17/19 16:20 17:34 Temperature 98.9 F Pulse Rate 113 H Respiratory 18 18 Rate Blood Pressure 151/91 O2 Sat by Pulse 96 Oximetry ED Medical Decision Making - Radiology Data Radiology results: report reviewed Findings: Minimal prepatellar soft tissue edema. No fractures or subluxation - Medical Decision Making 39-year-old male presents with an acute gouty arthritis of the knee. Patient received x-ray, meds in the ED. X-ray shows no acute knee fracture or acute findings. Symptoms consistent with an acute flareup. I discussed with patient to follow-up with his primary care physician. I discussed with patient colchicine and indomethacin for the next week. Patient is ambulatory with pain so crutches were given at discharge. I also discussed with patient to follow-up with an grounds restoration specialist. Critical care attestation.: If time is entered above; I have spent that time in minutes in the direct care of this critically ill patient, excluding procedure time. ED Disposition Clinical Impression: Right knee pain, Gouty arthritis, Cellulitis of knee, right Disposition: DC-01 TO HOME OR SELFCARE Is pt being admited?: No Does the pt Need Aspirin: No Condition: Stable Instructions: Arthralgia (ED) Additional Instructions: Make sure to follow up with the primary care physician as discussed. Take all your medications as you've been prescribed. If you have any worsening symptoms or develop new symptoms please return to ED immediately. Prescriptions: Clindamycin [Clindamycin CAP] 300 mg PO Q8H #21 cap Colchicine 0.6 mg PO DAILY #20 capsule predniSONE [Deltasone] 20 mg PO QDAY #5 tab Naproxen [Naprosyn TAB] 500 mg PO BID #20 tablet Referrals: CHARLOTTE GOYAL [Other] - 3-5 Days Forms: Work/School Release Form(ED) Time of Disposition: 18:13
== END 2019-11-17 18:45 | disposition home or self-care (01) ==
LOC: ED 13:17
DX: L03.115 Cellulitis of right lower limb (principal); M10.9 Gout, unspecified; I10 Essential (primary) hypertension; K21.9 Gastro-esophageal reflux disease without esophagitis; F43.10 Post-traumatic stress disorder, unspecified; F25.0 Schizoaffective disorder, bipolar type; Z90.49 Acquired absence of other specified parts of digestive tract; Z88.6 Allergy status to analgesic agent; Z91.018 Allergy to other foods; Z79.899 Other long term (current) drug therapy
CPT/HCPCS: 73562; 96372; 99283; J1100; J1885

== ENCOUNTER 2020-06-04 08:59 | Observation (INO) | payer MEDICARE ==
[2020-06-04] MEDS ORDERED: SODIUM CHLORIDE 0.9% 1000 ML 1,000 ML IV ONE ×2 (09:16→11:33)
[2020-06-04 10:11] LABS: Basophils # (Auto) 0.1 K/mm3 (0.0-0.1); Basophils % (Auto) 0.6 % (0.0-1.8); Eosinophils # (Auto) 0.1 K/mm3 (0.0-0.4); Eosinophils % (Auto) 0.9 % (0.0-4.3); Hematocrit 42.4 % (35.5-45.6); Hemoglobin 14.4 gm/dl (11.8-15.2); Lymphocytes # (Auto) 1.7 K/mm3 (1.2-5.4); Lymphocytes % (Auto) 16.1 % (13.4-35.0); Mean Corpuscular HGB Conc 34 % (32-34); Mean Corpuscular Volume 82 fl (84-94); Monocytes # (Auto) 0.4 K/mm3 (0.0-0.8); Monocytes % (Auto) 4.1 % (0.0-7.3); Platelet Count 355 K/mm3 (140-440); Red Blood Count 5.21 M/mm3 (3.65-5.03); Red Cell Distribution Width 15.1 % (13.2-15.2)
--- NOTE | 2020-06-04 10:16 | XRay Report ---
CHEST 1 VIEW 06/04/2020 9:11 AM INDICATION / CLINICAL INFORMATION: Lightheadedness/Dizziness/hypotension. COMPARISON: None available. FINDINGS: SUPPORT DEVICES: None. HEART / MEDIASTINUM: No significant abnormality. LUNGS / PLEURA: No significant pulmonary or pleural abnormality. No pneumothorax. ADDITIONAL FINDINGS: No significant additional findings. IMPRESSION: 1. No acute findings. Signer Name: Gerard Quevedo MD Signed: 06/04/2020 10:12 AM Workstation Name: [id number]
--- NOTE | 2020-06-04 10:17 | XRay Report ---
LEFT ANKLE 2 VIEW INDICATION / CLINICAL INFORMATION: fall pain. COMPARISON: Left ankle radiographs on 06/03/2018 FINDINGS: BONES/JOINT(S): There is a mildly displaced oblique fracture of the distal fibula. There is also abno rmal widening of the medial ankle mortise suggesting associated ligamentous injury. SOFT TISSUES: No significant abnormality. ADDITIONAL FINDINGS: None. Signer Name: Gerard Quevedo MD Signed: 06/04/2020 10:13 AM Workstation Name: [id number]
[2020-06-04 10:22] LABS: INR 1.05 (0.87-1.13)
[2020-06-04 10:36] LABS: BUN/Creatinine Ratio 9; Blood Urea Nitrogen 15 mg/dL (9-20); Calcium 9.2 mg/dL (8.4-10.2)
[2020-06-04 10:37] LABS: Creatine Kinase MB 1.1 ng/mL (0.0-4.0); Hemolysis Index 31
--- NOTE | 2020-06-04 12:07 | Emergency Department Report ---
ED General Adult HPI - General Chief complaint: Dizziness Stated complaint: WEAKNESS/DIZZY Time Seen by Provider: 06/04/20 09:14 Source: EMS, [facility] Mode of arrival: Stretcher Limitations: No Limitations - History of Present Illness Initial comments: This is a 40-year-old who is transported via EMS for hypotension. The staff at [place] [facility] stated that the patient got weak and dizzy twice falling once and injuring his ankle. He was found by EMS to have a blood pressure of 80/60. Medics were unable to initiate IV fluids. Patient states that he was very weak and fell but did not lose consciousness. He states he is currently taking 3 blood pressure medicines 2 of which are new for the last week. He did not get weak or fall prior to today. He denies fever or chills. He denies any acute pain. He is not short of breath. He is not been overly sedentary or bedridden. He states he has not had a problem with low blood pressure prior. He also states he has no known history of renal or cardiac disease other than hypertension. He has a history of schizoaffective disorder/bipolar/autism/PTSD. He complains of left ankle pain after fall. He denies any other injury. - Related Data Home Medications Medication Instructions Recorded Confirmed Last Taken Omeprazole [Prilosec] 20 mg PO BID 09/10/13 04/08/15 04/08/15 cloNIDine [Catapres] 0.1 mg PO QHS 09/10/13 04/08/15 04/07/15 lisinopriL [Zestril TAB] 10 mg PO QDAY 09/10/13 04/08/15 04/08/15 ARIPiprazole [Abilify TAB] 10 mg PO DAILY 04/08/15 04/08/15 04/07/15 Mirtazapine [Remeron] 7.5 mg PO QHS 04/08/15 04/08/15 04/07/15 carBAMazepine [TEGretol] 200 mg PO Q12HR 04/08/15 04/08/15 04/08/15 Previous Rx's Medication Instructions Recorded Last Taken Type methOCARBAMOL [Robaxin TAB] 500 mg PO Q6H PRN #20 tablet 04/08/15 Unknown Rx Gentamicin 0.3% Ophth Soln 2 drops OP Q4H 5 Days bottle 04/28/15 Unknown Rx Meloxicam 15 mg PO QDAY #30 tablet 05/04/15 Unknown Rx methOCARBAMOL [Robaxin TAB] 500 mg PO BID #10 tab 05/04/15 Unknown Rx Naproxen [Naprosyn] 500 mg PO BID #30 tablet 01/01/17 Unknown Rx DOXYCYCLINE Hyclate [Vibramycin 100 mg PO Q12HR 10 Days capsule 12/05/17 Unknown Rx CAP] Ibuprofen [Motrin] 600 mg PO Q8H PRN #30 tablet 06/08/18 Unknown Rx Cyclobenzaprine [Flexeril] 10 mg PO TID PRN #30 tablet 10/08/18 Unknown Rx Menthol/Camphor [[place] 1 applicatio TP QID PRN #1 tube 10/08/18 Unknown Rx Ointment] Naproxen [Naprosyn] 500 mg PO BID PRN #30 tablet 10/08/18 Unknown Rx HYDROcodone/APAP 5-325 [[place] 1 - 2 each PO Q6HR PRN #7 tablet 06/24/19 Unknown Rx 5/325] Ibuprofen [Motrin 800 MG tab] 800 mg PO Q8HR PRN #20 tablet 06/24/19 Unknown Rx methOCARBAMOL [Robaxin TAB] 500 mg PO Q8HR PRN #20 tablet 07/30/19 Unknown Rx Clindamycin [Clindamycin CAP] 300 mg PO Q8H #21 cap 11/17/19 Unknown Rx Colchicine 0.6 mg PO DAILY #20 capsule 11/17/19 Unknown Rx Naproxen [Naprosyn TAB] 500 mg PO BID #20 tablet 11/17/19 Unknown Rx predniSONE [Deltasone] 20 mg PO QDAY #5 tab 11/17/19 Unknown Rx Ibuprofen [Motrin 800 MG tab] 800 mg PO Q8HR PRN #15 tablet 03/22/20 Unknown Rx cephALEXin [Keflex] 500 mg PO Q8HR #21 cap 03/22/20 Unknown Rx Allergies Allergy/AdvReac Type Severity Reaction Status Date / Time codeine Allergy Anaphylaxis Verified 10/08/18 19:56 onion Allergy Anaphylaxis Verified 01/28/19 21:16 Sulfa (Sulfonamide Allergy Anaphylaxis Verified 10/08/18 19:56 Antibiotics) ED Review of Systems ROS: Stated complaint: WEAKNESS/DIZZY Other details as noted in HPI Constitutional: weakness. denies: chills, fever Eyes: denies: eye pain, vision change ENT: denies: ear pain, throat pain Respiratory: denies: cough, shortness of breath, wheezing Cardiovascular: denies: chest pain, palpitations Endocrine: no symptoms reported Gastrointestinal: denies: abdominal pain, nausea, diarrhea Genitourinary: denies: urgency, dysuria Musculoskeletal: denies: back pain, joint swelling, arthralgia Skin: denies: rash, lesions Neurological: denies: headache, weakness, paresthesias Psychiatric: denies: anxiety, depression Hematological/Lymphatic: denies: easy bleeding, easy bruising ED Past Medical Hx - Past Medical History Hx Hypertension: Yes Hx GERD: Yes Hx Arthritis: Yes (gout) Hx Psychiatric Treatment: Yes (PTSD, AUTISM, schizoaffective disorder) Additional medical history: schizoeffective disorder. bipolar - Surgical History Hx Appendectomy: Yes (1994) Additional Surgical History: right ACL repair - Social History Smoking Status: Never Smoker Substance Use Type: None - Medications Home Medications: Home Medications Medication Instructions Recorded Confirmed Last Taken Type Omeprazole [Prilosec] 20 mg PO BID 09/10/13 04/08/15 04/08/15 History cloNIDine [Catapres] 0.1 mg PO QHS 09/10/13 04/08/15 04/07/15 History lisinopriL [Zestril TAB] 10 mg PO QDAY 09/10/13 04/08/15 04/08/15 History ARIPiprazole [Abilify TAB] 10 mg PO DAILY 04/08/15 04/08/15 04/07/15 History Mirtazapine [Remeron] 7.5 mg PO QHS 04/08/15 04/08/15 04/07/15 History carBAMazepine [TEGretol] 200 mg PO Q12HR 04/08/15 04/08/15 04/08/15 History methOCARBAMOL [Robaxin TAB] 500 mg PO Q6H PRN #20 tablet 04/08/15 Unknown Rx Gentamicin 0.3% Ophth Soln 2 drops OP Q4H 5 Days bottle 04/28/15 Unknown Rx Meloxicam 15 mg PO QDAY #30 tablet 05/04/15 Unknown Rx methOCARBAMOL [Robaxin TAB] 500 mg PO BID #10 tab 05/04/15 Unknown Rx Naproxen [Naprosyn] 500 mg PO BID #30 tablet 01/01/17 Unknown Rx DOXYCYCLINE Hyclate [Vibramycin 100 mg PO Q12HR 10 Days capsule 12/05/17 Unknown Rx CAP] Ibuprofen [Motrin] 600 mg PO Q8H PRN #30 tablet 06/08/18 Unknown Rx Cyclobenzaprine [Flexeril] 10 mg PO TID PRN #30 tablet 10/08/18 Unknown Rx Menthol/Camphor [[place] 1 applicatio TP QID PRN #1 tube 10/08/18 Unknown Rx Ointment] Naproxen [Naprosyn] 500 mg PO BID PRN #30 tablet 10/08/18 Unknown Rx HYDROcodone/APAP 5-325 [[place] 1 - 2 each PO Q6HR PRN #7 tablet 06/24/19 Unknown Rx 5/325] Ibuprofen [Motrin 800 MG tab] 800 mg PO Q8HR PRN #20 tablet 06/24/19 Unknown Rx methOCARBAMOL [Robaxin TAB] 500 mg PO Q8HR PRN #20 tablet 07/30/19 Unknown Rx Clindamycin [Clindamycin CAP] 300 mg PO Q8H #21 cap 11/17/19 Unknown Rx Colchicine 0.6 mg PO DAILY #20 capsule 11/17/19 Unknown Rx Naproxen [Naprosyn TAB] 500 mg PO BID #20 tablet 11/17/19 Unknown Rx predniSONE [Deltasone] 20 mg PO QDAY #5 tab 11/17/19 Unknown Rx Ibuprofen [Motrin 800 MG tab] 800 mg PO Q8HR PRN #15 tablet 03/22/20 Unknown Rx cephALEXin [Keflex] 500 mg PO Q8HR #21 cap 03/22/20 Unknown Rx ED Physical Exam - General Limitations: No Limitations General appearance: alert, in no apparent distress, other (Appears pale) - Head Head exam: Present: atraumatic, normocephalic - Eye Eye exam: Present: normal appearance, PERRL, EOMI. Absent: scleral icterus - ENT ENT exam: Present: mucous membranes moist - Neck Neck exam: Present: normal inspection. Absent: tenderness, meningismus - Respiratory Respiratory exam: Present: normal lung sounds bilaterally. Absent: respiratory distress - Cardiovascular Cardiovascular Exam: Present: regular rate, normal rhythm. Absent: systolic murmur, diastolic murmur, rubs, gallop - GI/Abdominal GI/Abdominal exam: Present: soft, normal bowel sounds. Absent: distended, tenderness, guarding, rebound - Rectal Rectal exam: Present: deferred - Extremities Exam Extremities exam: Present: other (Tenderness and swelling left ankle) - Back Exam Back exam: Absent: normal inspection (Limited exam) - Neurological Exam Neurological exam: Present: alert, oriented X3, CN II-XII intact. Absent: motor sensory deficit - Psychiatric Psychiatric exam: Present: normal affect, normal mood - Skin Skin exam: Present: warm, dry, intact, normal color. Absent: rash ED Course Vital Signs 06/04/20 06/04/20 06/04/20 09:09 09:15 09:23 Temperature 97.9 F Pulse Rate 78 79 Respiratory 24 18 Rate Blood Pressure Blood Pressure [Left] O2 Sat by Pulse 93 Oximetry 06/04/20 06/04/20 06/04/20 09:24 09:30 10:01 Temperature Pulse Rate 64 67 Respiratory 14 15 Rate Blood Pressure 77/42 95/44 Blood Pressure 79/32 [Left] O2 Sat by Pulse 93 95 Oximetry 06/04/20 06/04/20 06/04/20 10:16 10:31 11:01 Temperature Pulse Rate 64 68 Respiratory 15 16 Rate Blood Pressure 77/42 77/42 Blood Pressure 110/70 [Left] O2 Sat by Pulse 99 Oximetry - Reevaluation(s) Reevaluation #1: Fluid resuscitation. Blood pressure in 90s. I do not think the patient will need central venous access. Please refer to the hospitalist. He is noted to have an elevated lactic acid level and elevated creatinine. We do not have baseline renal function on this patient or prior records. His ankle will be placed and a short leg splint and elevated. I would presume the hospitalist will admit him; Dr. Garza stated he would like to evaluate the patient first. 06/04/20 13:31 Reevaluation #2: Serial lactic acid level, LFTs, CK is yet pending. I do not think the patient qualifies for empiric antibiotics at this juncture. 06/04/20 13:33 ED Medical Decision Making - Lab Data Result diagrams: 06/04/20 09:34 06/04/20 09:34 Laboratory Results - last 24 hr 0906/04/20 06/04/20 09:34 09:34 09:34 WBC 10.7 RBC 5.21 H Hgb 14.4 Hct 42.4 MCV 82 L MCH 28 MCHC 34 RDW 15.1 Plt Count 355 Lymph % (Auto) 16.1 [place] % (Auto) 4.1 Eos % (Auto) 0.9 Baso % (Auto) 0.6 Lymph # (Auto) 1.7 [place] # (Auto) 0.4 Eos # (Auto) 0.1 Baso # (Auto) 0.1 Seg Neutrophils % 78.3 H Seg Neutrophils # 8.4 H PT 13.9 INR 1.05 Sodium 136 L Potassium 4.9 Chloride 100.1 Carbon Dioxide 20 L Anion Gap 21 BUN 15 Creatinine 1.6 H Estimated GFR 49 BUN/Creatinine Ratio 9 Glucose 192 H Lactic Acid Calcium 9.2 Total Bilirubin AST ALT Alkaline Phosphatase Total Creatine Kinase 95 CK-MB (CK-2) 1.1 CK-MB (CK-2) Rel Index 1.1 Troponin T < 0.010 Total Protein Albumin Albumin/Globulin Ratio 06/04/20 06/04/20 06/04/20 09:34 12:18 12:18 WBC RBC Hgb Hct MCV MCH MCHC RDW Plt Count Lymph % (Auto) [place] % (Auto) Eos % (Auto) Baso % (Auto) Lymph # (Auto) [place] # (Auto) Eos # (Auto) Baso # (Auto) Seg Neutrophils % Seg Neutrophils # PT INR Sodium Potassium Chloride Carbon Dioxide Anion Gap BUN Creatinine Estimated GFR BUN/Creatinine Ratio Glucose Lactic Acid 2.90 H* 2.00 Calcium Total Bilirubin 0.50 AST 21 ALT 30 Alkaline Phosphatase 92 Total Creatine Kinase 96 CK-MB (CK-2) 1.0 CK-MB (CK-2) Rel Index 1.0 Troponin T Total Protein 7.0 Albumin 3.8 L Albumin/Globulin Ratio 1.2 Laboratory Results - last 24 hr 06/04/20 06/04/20 06/04/20 09:34 09:34 09:34 WBC 10.7 RBC 5.21 H Hgb 14.4 Hct 42.4 MCV 82 L MCH 28 MCHC 34 RDW 15.1 Plt Count 355 Lymph % (Auto) 16.1 [place] % (Auto) 4.1 Eos % (Auto) 0.9 Baso % (Auto) 0.6 Lymph # (Auto) 1.7 [place] # (Auto) 0.4 Eos # (Auto) 0.1 Baso # (Auto) 0.1 Seg Neutrophils % 78.3 H Seg Neutrophils # 8.4 H PT 13.9 INR 1.05 Sodium 136 L Potassium 4.9 Chloride 100.1 Carbon Dioxide 20 L Anion Gap 21 BUN 15 Creatinine 1.6 H Estimated GFR 49 BUN/Creatinine Ratio 9 Glucose 192 H Lactic Acid Calcium 9.2 Total Bilirubin AST ALT Alkaline Phosphatase Total Creatine Kinase 95 CK-MB (CK-2) 1.1 CK-MB (CK-2) Rel Index 1.1 Troponin T < 0.010 Total Protein Albumin Albumin/Globulin Ratio 06/04/20 06/04/20 06/04/20 09:34 12:18 12:18 WBC RBC Hgb Hct MCV MCH MCHC RDW Plt Count Lymph % (Auto) [place] % (Auto) Eos % (Auto) Baso % (Auto) Lymph # (Auto) [place] # (Auto) Eos # (Auto) Baso # (Auto) Seg Neutrophils % Seg Neutrophils # PT INR Sodium Potassium Chloride Carbon Dioxide Anion Gap BUN Creatinine Estimated GFR BUN/Creatinine Ratio Glucose Lactic Acid 2.90 H* 2.00 Calcium Total Bilirubin 0.50 AST 21 ALT 30 Alkaline Phosphatase 92 Total Creatine Kinase 96 CK-MB (CK-2) 1.0 CK-MB (CK-2) Rel Index 1.0 Troponin T Total Protein 7.0 Albumin 3.8 L Albumin/Globulin Ratio 1.2 - EKG Data -: EKG Interpreted by Me (Still pending, nurse informed) EKG shows normal: sinus rhythm Rate: normal - EKG Data Interpretation: nonspecific ST-T wave anmol, other (Poor R wave progression anter ior leads no acute ischemic changes) - Radiology Data FINDINGS: BONES/JOINT(S): There is a mildly displaced oblique fracture of the distal fibula. There is also abnormal widening of the medial ankle mortise suggesting associated ligamentous injury. Chest x-ray no acute process Critical care attestation.: If time is entered above; I have spent that time in minutes in the direct care of this critically ill patient, excluding procedure time. ED Disposition Clinical Impression: Acute kidney injury Hypotension Qualifiers: Hypotension type: other hypotension type Qualified Code(s): I95.89 - Other hypotension Adverse effects of medication Qualifiers: Encounter type: initial encounter Qualified Code(s): T50.905A - Adverse effect of unspecified drugs, medicaments and biological substances, initial encounter Closed fracture of left distal fibula Qualifiers: Encounter type: initial encounter Fracture morphology: unspecified fracture morphology Qualified Code(s): S82.832A - Other fracture of upper and lower end of left fibula, initial encounter for closed fracture Disposition: 09 OP ADMIT IP TO THIS HOSP Is pt being admited?: Yes Does the pt Need Aspirin: Yes Condition: Stable Referrals: PRIMARY CARE, [Primary Care Provider] - 3-5 Days Time of Disposition: 14:47
[2020-06-04 13:27] LABS: Alanine Aminotransferase 30 units/L (7-56); Albumin 3.8 g/dL (3.9-5)
[2020-06-04 13:46] LABS: Bilirubin,Direct < 0.2 mg/dL (0-0.2)
[2020-06-04] MEDS ORDERED: ASPIRIN 325 MG TAB PO ONE (14:48)
[2020-06-04] MEDS ORDERED: ACETAMINOPHEN 325 MG TAB PO PRN (14:54)
[2020-06-04] MEDS ORDERED: ONDANSETRON 4 MG/2 ML INJ IV PRN (14:54)
[2020-06-04] MEDS ORDERED: SODIUM CHLORIDE 0.9% 1000 ML 1,000 ML IV SCH (15:00)
[2020-06-04] MEDS ORDERED: NON-FORMULARY EACH (Omeprazole [Prilosec] 20 MG) PO SCH (15:00)
[2020-06-04] MEDS: carBAMazepine 200 MG TAB PO SCH ×3 (16:18→22:33)
[2020-06-04] MEDS: ARIPiprazole 10 MG TAB PO SCH ×2 (16:18→16:26)
[2020-06-04] MEDS: cefTRIAXone/NS 2 GM/100 ML 2 GM/100 ML BAG IV SCH (16:18)
[2020-06-04] MEDS: PANTOPRAZOLE 20 MG TAB PO SCH (16:18)
[2020-06-04] MEDS: COLCHICINE 0.6 MG CAP PO SCH (16:18)
[2020-06-04] MEDS: ENOXAPARIN 40 MG/0.4 ML INJ SUB-Q SCH (16:26)
[2020-06-04] MEDS ORDERED: MIRTAZAPINE 15 MG TAB PO SCH (22:00)
[2020-06-04] MEDS ORDERED: OXcarbazepine 300 MG TAB PO ONE (23:57)
[2020-06-05 06:05] LABS: Basophils # (Auto) 0.1 K/mm3 (0.0-0.1); Basophils % (Auto) 0.5 % (0.0-1.8); Eosinophils # (Auto) 0.1 K/mm3 (0.0-0.4); Eosinophils % (Auto) 0.5 % (0.0-4.3); Hematocrit 38.4 % (35.5-45.6); Hemoglobin 12.9 gm/dl (11.8-15.2); Lymphocytes # (Auto) 2.4 K/mm3 (1.2-5.4); Lymphocytes % (Auto) 22.2 % (13.4-35.0); Mean Corpuscular HGB Conc 34 % (32-34); Mean Corpuscular Volume 82 fl (84-94); Monocytes # (Auto) 0.7 K/mm3 (0.0-0.8); Monocytes % (Auto) 6.5 % (0.0-7.3); Platelet Count 248 K/mm3 (140-440); Red Cell Distribution Width 15.4 % (13.2-15.2)
[2020-06-05 06:25] LABS: Alanine Aminotransferase 22 units/L (7-56); Albumin 3.4 g/dL (3.9-5); BUN/Creatinine Ratio 14; Blood Urea Nitrogen 17 mg/dL (9-20); Calcium 8.6 mg/dL (8.4-10.2); Hemolysis Index 13
--- NOTE | 2020-06-05 07:49 | History and Physical Report ---
History of Present Illness Date of examination: 06/04/20 Date of admission: 06/04/20 14:54 Chief complaint: Low blood pressure and a fall Left ankle pain History of present illness: 40-year-old lady with history of hypertension and bipolar disorder/PTSD/schizoaffective disorder sent from [facility] for low blood pressure. Patient had a blood pressure of 80/60. Patient fell twice injuring his left ankle. Patient is taking 3 blood pressure medicines including clonidine and lisinopril. Patient feels better now. After lying down and getting IV fluids in the emergency room patient twisted his ankle while falling down and has pain about 6 on a scale of 1-10. In the left ankle. - Past Medical History Hypertension: Yes GERD: Yes Arthritis: Yes (gout) Psychiatric Treatment: Yes (PTSD, AUTISM, schizoaffective disorder) Additional medical history: schizoeffective disorder. bipolar - Surgical History Hx Appendectomy: Yes (1994) Additional Surgical History: right ACL repair - Social History Smoking Status: Never Smoker Substance Use Type: None Family history Htn - Review of Systems ROS: Stated complaint: WEAKNESS/DIZZY Other details as noted in HPI Constitutional: weakness. denies: chills, fever Eyes: denies: eye pain, vision change ENT: denies: ear pain, throat pain Respiratory: denies: cough, shortness of breath, wheezing Cardiovascular: denies: chest pain, palpitations Endocrine: no symptoms reported Gastrointestinal: denies: abdominal pain, nausea, diarrhea Genitourinary: denies: urgency, dysuria Musculoskeletal: denies: back pain, joint swelling, arthralgia Skin: denies: rash, lesions Neurological: denies: headache, weakness, paresthesias Psychiatric: denies: anxiety, depression Hematological/Lymphatic: denies: easy bleeding, easy bruising Medications and Allergies Allergies Allergy/AdvReac Type Severity Reaction Status Date / Time codeine Allergy Anaphylaxis Verified 10/08/18 19:56 onion Allergy Anaphylaxis Verified 01/28/19 21:16 Sulfa (Sulfonamide Allergy Anaphylaxis Verified 10/08/18 19:56 Antibiotics) Home Medications Medication Instructions Recorded Confirmed Last Taken Type Omeprazole [Prilosec] 20 mg PO BID 09/10/13 04/08/15 04/08/15 History cloNIDine [Catapres] 0.1 mg PO QHS 09/10/13 04/08/15 04/07/15 History lisinopriL [Zestril TAB] 10 mg PO QDAY 09/10/13 04/08/15 04/08/15 History Mirtazapine [Remeron] 7.5 mg PO QHS 04/08/15 04/08/15 04/07/15 History carBAMazepine [TEGretol] 200 mg PO Q12HR 04/08/15 04/08/15 04/08/15 History methOCARBAMOL [Robaxin TAB] 500 mg PO Q6H PRN #20 tablet 04/08/15 Unknown Rx Gentamicin 0.3% Ophth Soln 2 drops OP Q4H 5 Days bottle 04/28/15 Unknown Rx Meloxicam 15 mg PO QDAY #30 tablet 05/04/15 Unknown Rx methOCARBAMOL [Robaxin TAB] 500 mg PO BID #10 tab 05/04/15 Unknown Rx DOXYCYCLINE Hyclate [Vibramycin 100 mg PO Q12HR 10 Days capsule 12/05/17 Unk nown Rx CAP] Ibuprofen [Motrin] 600 mg PO Q8H PRN #30 tablet 06/08/18 Unknown Rx Menthol/Camphor [[place] 1 applicatio TP QID PRN #1 tube 10/08/18 Unknown Rx Ointment] Naproxen [Naprosyn] 500 mg PO BID PRN #30 tablet 10/08/18 Unknown Rx HYDROcodone/APAP 5-325 [[place] 1 - 2 each PO Q6HR PRN #7 tablet 06/24/19 Unknown Rx 5/325] Ibuprofen [Motrin 800 MG tab] 800 mg PO Q8HR PRN #20 tablet 06/24/19 Unknown Rx methOCARBAMOL [Robaxin TAB] 500 mg PO Q8HR PRN #20 tablet 07/30/19 Unknown Rx cephALEXin [Keflex] 500 mg PO Q8HR #21 cap 03/22/20 Unknown Rx Benztropine [Cogentin] 1 mg PO BID 06/04/20 06/04/20 Unknown History Citalopram Hydrobromide [Celexa] 40 mg PO QAM 06/04/20 06/04/20 Unknown History Lisinopril [Zestril] 5 mg PO BID 06/04/20 06/04/20 Unknown History Norvasc 25 mg PO QDAY 06/04/20 06/04/20 Unknown History OLANzapine [ZyPREXA] 2.5 mg PO QAM 06/04/20 06/04/20 Unknown History OLANzapine [ZyPREXA] 10 mg PO QHS 06/04/20 06/04/20 Unknown History carvediloL [Coreg] mg PO BID 06/04/20 Unknown History Active Meds: Active Medications Acetaminophen (Tylenol) 650 mg PO Q4H PRN PRN Reason: Pain MILD(1-3)/Fever >100.5/MARCH Aripiprazole (Aripiprazole) 10 mg PO DAILY [facility] Last Admin: 06/04/20 16:26 Dose: Not Given Documented by: Carbamazepine (Tegretol) 200 mg PO Q12HR [facility] Last Admin: 06/04/20 22:33 Dose: Not Given Documented by: Colchicine (Colchicine) 0.6 mg PO DAILY [facility] Last Admin: 06/04/20 16:18 Dose: 0.6 mg Documented by: Enoxaparin Sodium (Enoxaparin) 40 mg SUB-Q QDAY [facility] Last Admin: 06/04/20 16:26 Dose: 40 mg Documented by: Hydromorphone HCl (Dilaudid) 0.5 mg IV Q3H PRN PRN Reason: Pain , Severe (7-10) Sodium Chloride (Nacl 0.9% 1000 Ml) 1,000 mls @ 100 mls/hr IV DIRECT [facility] Ceftriaxone Sodium (Rocephin/Ns 2 Gm/100 Ml) 2 gm in 100 mls @ 200 mls/hr IV Q24HR [facility]; Protocol Last Admin: 06/04/20 16:18 Dose: 200 mls/hr Documented by: Mirtazapine (Remeron) 7.5 mg PO QHS [facility] Last Admin: 06/04/20 22:33 Dose: Not Given Documented by: Ondansetron HCl (Zofran) 4 mg IV Q8H PRN PRN Reason: Nausea And Vomiting Oxycodone/Acetaminophen (Percocet 5/325) 1 tab PO Q6H PRN PRN Reason: Pain, Moderate (4-6) Pantoprazole Sodium (Protonix) 20 mg PO QDAY [facility] Last Admin: 06/04/20 16:18 Dose: 20 mg Documented by: Sodium Chloride (Sodium Chloride Flush Syringe 10 Ml) 10 ml IV BID [facility] Last Admin: 06/04/20 22:33 Dose: 10 ml Documented by: Sodium Chloride (Sodium Chloride Flush Syringe 10 Ml) 10 ml IV PRN PRN PRN Reason: LINE FLUSH Exam - Constitutional Vitals: Temp Pulse Resp BP Pulse Ox 98.1 F 68 18 110/69 94 06/04/20 23:17 06/04/20 23:17 06/04/20 23:17 06/04/20 23:17 06/04/20 23:17 HEART Score - HEART Score Troponin: Troponin T < 0.010 ng/mL (0.00-0.029) 06/04/20 09:34 Results - Labs CBC & Chem 7: 06/05/20 05:21 06/05/20 05:21 Labs: Laboratory Last Values WBC 10.9 K/mm3 (4.5-11.0) 06/05/20 05:21 RBC 4.70 M/mm3 (3.65-5.03) 06/05/20 05:21 Hgb 12.9 gm/dl (11.8-15.2) 06/05/20 05:21 Hct 38.4 % (35.5-45.6) 06/05/20 05:21 MCV 82 fl (84-94) L 06/05/20 05:21 MCH 27 pg (28-32) L 06/05/20 05:21 MCHC 34 % (32-34) 06/05/20 05:21 RDW 15.4 % (13.2-15.2) H 06/05/20 05:21 Plt Count 248 K/mm3 (140-440) 06/05/20 05:21 Lymph % (Auto) 22.2 % (13.4-35.0) 06/05/20 05:21 [place] % (Auto) 6.5 % (0.0-7.3) 06/05/20 05:21 Eos % (Auto) 0.5 % (0.0-4.3) 06/05/20 05:21 Baso % (Auto) 0.5 % (0.0-1.8) 06/05/20 05:21 Lymph # (Auto) 2.4 K/mm3 (1.2-5.4) 06/05/20 05:21 [place]w # (Auto) 0.7 K/mm3 (0.0-0.8) 06/05/20 05:21 Eos # (Auto) 0.1 K/mm3 (0.0-0.4) 06/05/20 05:21 Baso # (Auto) 0.1 K/mm3 (0.0-0.1) 06/05/20 05:21 Seg Neutrophils % 70.3 % (40.0-70.0) H 06/05/20 05:21 Seg Neutrophils # 7.7 K/mm3 (1.8-7.7) 06/05/20 05:21 PT 13.9 Sec. (12.2-14.9) 06/04/20 09:34 INR 1.05 (0.87-1.13) 06/04/20 09:34 Sodium 141 mmol/L (137-145) 06/05/20 05:21 Potassium 4.1 mmol/L (3.6-5.0) 06/05/20 05:21 Chloride 107.3 mmol/L (98-107) H 06/05/20 05:21 Carbon Dioxide 22 mmol/L (22-30) 06/05/20 05:21 Anion Gap 16 mmol/L 06/05/20 05:21 BUN 17 mg/dL (9-20) 06/05/20 05:21 Creatinine 1.2 mg/dL (0.8-1.3) 06/05/20 05:21 Estimated GFR > 60 ml/min 06/05/20 05:21 BUN/Creatinine Ratio 14 % 06/05/20 05:21 Glucose 112 mg/dL (75-100) H 06/05/20 05:21 Hemoglobin A1c 6.2 % (4-6) H 06/04/20 16:10 Lactic Acid 2.00 mmol/L (0.7-2.0) 06/04/20 16:10 Calcium 8.6 mg/dL (8.4-10.2) 06/05/20 05:21 Total Bilirubin 0.40 mg/dL (0.1-1.2) 06/05/20 05:21 Direct Bilirubin < 0.2 mg/dL (0-0.2) 06/04/20 12:18 Indirect Bilirubin 0.3 mg/dL 06/04/20 12:18 AST 13 units/L (5-40) 06/05/20 05:21 ALT 22 units/L (7-56) 06/05/20 05:21 Alkaline Phosphatase 80 units/L (35-129) 06/05/20 05:21 Total Creatine Kinase 96 units/L (55-170) 06/04/20 12:18 CK-MB (CK-2) 1.0 ng/mL (0.0-4.0) 06/04/20 12:18 CK-MB (CK-2) Rel Index 1.0 (0-4) 06/04/20 12:18 Troponin T < 0.010 ng/mL (0.00-0.029) 06/04/20 09:34 Total Protein 5.9 g/dL (6.3-8.2) L 06/05/20 05:21 Albumin 3.4 g/dL (3.9-5) L 06/05/20 05:21 Albumin/Globulin Ratio 1.4 % 06/05/20 05:21 Microbiology: Microbiology 06/04/20 09:34 Peripheral/Venous Blood Culture - Preliminary Culture in Progress 06/04/20 09:34 Peripheral/Venous Blood Culture - Preliminary Culture in Progress - Imaging and Cardiology Imaging and Cardiology: Left ankle x-ray Mildly displaced oblique fracture of the distal fibula Also abnormal widening of the medial ankle mortise suggesting associated ligamentous injury Peterson/IV: Voiding Method Urinal IV Catheter Type [Right INT / Saline Lock Antecubital] Assessment and Plan Advance Directives: Yes (Full code) VTE prophylaxis?: Chemical Plan of care discussed with patient/family: Yes - Patient Problems (1) Orthostatic hypotension Current Visit: Yes Status: Acute Plan to address problem: Iatrogenic Patient on clonidine and lisinopril Both medication stopped Will initiate antihypertensives with a blood pressure goes higher at a lower dose of Coreg or amlodipine Patient is on a lot of unnecessary medications which are kept on hold (2) Closed fracture of left distal fibula Current Visit: Yes Status: Acute Qualifiers: Encounter type: initial encounter Fracture morphology: unspecified fracture morphology Qualified Code(s): S82.832A - Other fracture of upper and lower end of left fibula, initial encounter for closed fracture Plan to address problem: Orthopedic consult requested (3) Elevated lactic acid level Current Visit: Yes Status: Acute Plan to address problem: Nonspecific No signs of infection (4) Hyponatremia Current Visit: Yes Status: Acute Plan to address problem: Mild IV fluids normal saline for now (5) Bipolar disorder Current Visit: Yes Status: Chronic Qualifiers: Active/Remission status: in full remission Plan to address problem: Continue antipsychotic medications (6) DVT prophylaxis Current Visit: Yes Status: Acute Plan to address problem: On heparin and GI prophylaxis
[2020-06-05] MEDS: oxyCODONE /ACETAMINOPHEN 5-325MG TAB PO PRN (08:28)
[2020-06-05] MEDS: PANTOPRAZOLE 20 MG TAB PO SCH (10:50)
[2020-06-05] MEDS: carBAMazepine 200 MG TAB PO SCH (10:50)
[2020-06-05] MEDS: ARIPiprazole 10 MG TAB PO SCH (10:50)
[2020-06-05] MEDS: COLCHICINE 0.6 MG CAP PO SCH (10:50)
[2020-06-05] MEDS: ENOXAPARIN 40 MG/0.4 ML INJ SUB-Q SCH (10:50)
[2020-06-05] MEDS: cefTRIAXone/NS 2 GM/100 ML 2 GM/100 ML BAG IV SCH (10:51)
[2020-06-05 13:02] LABS: Bilirubin,Urine NEG (Negative); Blood,Urine NEG (Negative); Color,Urine Yellow (Yellow); Mucus,Urine FEW /HPF; Protein,Urine <15 mg/dL mg/dL (Negative); RBC,Urine < 1.0 /HPF (0.0-6.0); Urobilinogen,Urine < 2.0 mg/dL (<2.0)
--- NOTE | 2020-06-05 15:59 | Progress Note ---
Assessment and Plan --Orthostatic hypotension Iatrogenic Patient on clonidine and lisinopril Both medication stopped Will initiate antihypertensives with a blood pressure goes higher at a lower dose of Coreg or amlodipine --Closed fracture of left distal fibula, Orthopedic consult requested s/p closed reduction, will follow PT eval -- Elevated lactic acid level Likely for dehydration, continue IV fluid No sign for infection --Hyponatremia, mild IV fluids for now --Bipolar disorder, continue home antipsychotic medications --DVT prophylaxis, heparin Brief history: This is a 40-year-old male with a history of hypertension and bipolar disorder/PTSD/schizoaffective disorder sent from [facility] for low blood pressure. Patient had a blood pressure of 80/60. Patient fell twice injuring his left ankle. Left ankle x-ray showed mildly displaced oblique fracture of the distal fibula. Also abnormal widening of the medial ankle mortise suggesting associated ligamentous injury. 06/05; continue to hold clonidine and lisinopril, adjust BP medications, follow orthopedic and PT recommendation Subjective Date of service: 06/05/20 Interval history: Patient seen and examined denies any chest pain or SOB c/o left ankle pain Objective - Exam Narrative Exam: - General Limitations: No Limitations General appearance: alert, in no apparent distress, other (Appears pale) - Head Head exam: Present: atraumatic, normocephalic - Eye Eye exam: Present: normal appearance, PERRL, EOMI. Absent: scleral icterus - ENT ENT exam: Present: mucous membranes moist - Neck Neck exam: Present: normal inspection. Absent: tenderness, meningismus - Respiratory Respiratory exam: Present: normal lung sounds bilaterally. Absent: respiratory distress - Cardiovascular Cardiovascular Exam: Present: regular rate, normal rhythm. Absent: systolic murmur, diastolic murmur, rubs, gallop - GI/Abdominal GI/Abdominal exam: Present: soft, normal bowel sounds. Absent: distended, tenderness, guarding, rebound - Extremities Exam Extremities exam: Present: other (Tenderness and swelling left ankle) - Back Exam Back exam: Absent: normal inspection (Limited exam) - Neurological Exam Neurological exam: Present: alert, oriented X3, CN II-XII intact. Absent: motor sensory deficit - Psychiatric Psychiatric exam: Present: normal affect, normal mood - Skin Skin exam: Present: warm, dry, intact, normal color. Absent: rash - Constitutional Vitals: Vital Signs - 12hr 09/23/20 09/23/20 08:07 12:05 Temperature 98.2 F Pulse Rate 82 72 Respiratory 18 Rate Blood Pressure 126/97 O2 Sat by Pulse 94 Oximetry - Labs CBC & Chem 7: 06/05/20 05:21 06/05/20 05:21 Labs: Abnormal lab results 06/04/20 06/05/20 06/05/20 Range/Units 16:10 05:21 05:21 MCV 82 L (84-94) fl MCH 27 L (28-32) pg RDW 15.4 H (13.2-15.2) % Seg Neutrophils % 70.3 H (40.0-70.0) % Chloride 107.3 H (98-107) mmol/L Glucose 112 H (75-100) mg/dL Hemoglobin A1c 6.2 H (4-6) % Total Protein 5.9 L (6.3-8.2) g/dL Albumin 3.4 L (3.9-5) g/dL HEART Score - HEART Score Troponin: Troponin T < 0.010 ng/mL (0.00-0.029) 06/04/20 09:34
--- NOTE | 2020-06-05 19:05 | Discharge Summary ---
Providers - Providers Date of Admission: 06/04/20 14:54 Date of discharge: 06/05/20 Attending physician: WILIAM FALCON 06/04/20 14:59 Consult to Physician [CONS] Routine Comment: Consulting Provider: KIM BOWIE Physician Instructions: Reason For Exam: Left distal fibula fx Primary care physician: BANKMAN Hospitalization Condition: Stable Disposition: DC/TX-70 ANOTHER TYPE [facility] Time spent for discharge: 34 minutes Core Measure Documentation - Palliative Care Palliative Care/ Comfort Measures: Not Applicable - Core Measures Any of the following diagnoses?: none Exam - Physical Exam Narrative exam: - General Limitations: No Limitations General appearance: alert, in no apparent distress, other (Appears pale) - Head Head exam: Present: atraumatic, normocephalic - Eye Eye exam: Present: normal appearance, PERRL, EOMI. Absent: scleral icterus - ENT ENT exam: Present: mucous membranes moist - Neck Neck exam: Present: normal inspection. Absent: tenderness, meningismus - Respiratory Respiratory exam: Present: normal lung sounds bilaterally. Absent: respiratory distress - Cardiovascular Cardiovascular Exam: Present: regular rate, normal rhythm. Absent: systolic murmur, diastolic murmur, rubs, gallop - GI/Abdominal GI/Abdominal exam: Present: soft, normal bowel sounds. Absent: distended, tenderness, guarding, rebound - Extremities Exam Extremities exam: Present: other (dressing over left ankle) - Back Exam Back exam: Absent: normal inspection (Limited exam) - Neurological Exam Neurological exam: Present: alert, oriented X3, CN II-XII intact. Absent: motor sensory deficit - Psychiatric Psychiatric exam: Present: normal affect, normal mood - Skin Skin exam: Present: warm, dry, intact, normal color. Absent: rash - Constitutional Vitals: Temp Pulse Resp BP Pulse Ox 98.2 F 72 18 126/97 94 06/05/20 08:07 06/05/20 12:05 06/05/20 08:07 06/05/20 08:07 06/05/20 08:07 Plan Follow up with: PRIMARY CARE, [Primary Care Provider] - 3-5 Days
[2020-06-05] MEDS: OXcarbazepine 300 MG TAB PO SCH (22:19)
[2020-06-06] MEDS: oxyCODONE /ACETAMINOPHEN 5-325MG TAB PO PRN ×2 (00:37→18:40)
[2020-06-06] MEDS: HYDROmorphone 1 MG/1 ML INJ IV PRN ×3 (08:35→16:25)
[2020-06-06] MEDS: PANTOPRAZOLE 20 MG TAB PO SCH (09:37)
[2020-06-06] MEDS: ENOXAPARIN 40 MG/0.4 ML INJ SUB-Q SCH (09:37)
[2020-06-06] MEDS: OXcarbazepine 300 MG TAB PO SCH ×2 (09:37→22:06)
[2020-06-06] MEDS: COLCHICINE 0.6 MG CAP PO SCH (09:37)
[2020-06-06] MEDS: cefTRIAXone/NS 2 GM/100 ML 2 GM/100 ML BAG IV SCH (09:37)
[2020-06-06] MEDS: carvediloL 25 MG TAB PO SCH ×2 (12:53→22:06)
--- NOTE | 2020-06-06 18:16 | Consultation ---
History of Present Illness - HPI Consult date: 06/06/20 Consult reason: fracture History of present illness: 40 y/o male with c/o left ankle pain and swelling after falling 2 days ago, seen in ED where xrays taken reveal lateral malleolus fx with ?? widening ankle mort ise Medications and Allergies Allergies Allergy/AdvReac Type Severity Reaction Status Date / Time codeine Allergy Anaphylaxis Verified 10/08/18 19:56 onion Allergy Anaphylaxis Verified 01/28/19 21:16 Sulfa (Sulfonamide Allergy Anaphylaxis Verified 10/08/18 19:56 Antibiotics) Home Medications Medication Instructions Recorded Confirmed Last Taken Type Omeprazole [PriLOSEC] 20 mg PO BID 09/10/13 04/08/15 04/08/15 History cloNIDine [Catapres] 0.1 mg PO QHS 09/10/13 04/08/15 04/07/15 History lisinopriL [Zestril TAB] 5 mg PO BID 09/10/13 06/06/20 04/08/15 History Mirtazapine [Remeron] 7.5 mg PO QHS 04/08/15 04/08/15 04/07/15 History carBAMazepine [TEGretol] 200 mg PO Q12HR 04/08/15 04/08/15 04/08/15 History methOCARBAMOL [Robaxin TAB] 500 mg PO Q6H PRN #20 tablet 04/08/15 Unknown Rx Gentamicin 0.3% Ophth Soln 2 drops OP Q4H 5 Days bottle 04/28/15 Unknown Rx Meloxicam 15 mg PO QDAY #30 tablet 05/04/15 Unknown Rx methOCARBAMOL [Robaxin TAB] 500 mg PO BID #10 tab 05/04/15 Unknown Rx DOXYCYCLINE Hyclate [Vibramycin 100 mg PO Q12HR 10 Days capsule 12/05/17 Unknown Rx CAP] Ibuprofen [Motrin 600 MG tab] 600 mg PO Q8H PRN #30 tablet 06/08/18 Unknown Rx Menthol/Camphor [[place] 1 applicatio TP QID PRN #1 tube 10/08/18 Unknown Rx Ointment] Naproxen [Naprosyn] 500 mg PO BID PRN #30 tablet 10/08/18 Unknown Rx HYDROcodone/APAP 5-325 [[place] 1 - 2 each PO Q6HR PRN #7 tablet 06/24/19 Unknown Rx 5-325 mg TAB] Ibuprofen [Motrin 800 MG tab] 800 mg PO Q8HR PRN #20 tablet 06/24/19 Unknown Rx methOCARBAMOL [Robaxin TAB] 500 mg PO Q8HR PRN #20 tablet 07/30/19 Unknown Rx cephALEXin [Keflex] 500 mg PO Q8HR #21 cap 03/22/20 Unknown Rx Benztropine [Cogentin] 1 mg PO BID 06/04/20 06/04/20 Unknown History Citalopram Hydrobromide [Celexa] 40 mg PO QAM 06/04/20 06/04/20 Unknown History Lisinopril [Zestril] 5 mg PO BID 06/04/20 06/04/20 Unknown History OLANzapine [ZyPREXA] 2.5 mg PO QAM 06/04/20 06/04/20 Unknown History OLANzapine [Zyprexa] 10 mg PO QHS 06/04/20 06/04/20 Unknown History carvediloL [Coreg] 25 mg PO BID 06/04/20 06/06/20 Unknown History OLANzapine [ZyPREXA] 2.5 mg PO QDAY 06/05/20 06/05/20 06/03/20 History OLANzapine [Zyprexa] 10 mg PO QHS 06/05/20 06/05/20 06/04/20 History OXcarbazepine [Trileptal] 300 mg PO QDAY 06/05/20 06/05/20 06/03/20 History OXcarbazepine [Trileptal] 600 mg PO HS 06/05/20 06/05/20 06/04/20 History Amlodipine Besylate [Norvasc] 10 mg PO QDAY 06/06/20 06/06/20 Unknown History Benztropine [Cogentin] 1 mg PO BID 06/06/20 06/06/20 Unknown History Active Meds: Active Medications Acetaminophen (Tylenol) 650 mg PO Q4H PRN PRN Reason: Pain MILD(1-3)/Fever >100.5/MARCH Carvedilol (Coreg) 25 mg PO BID [facility] Last Admin: 06/06/20 12:53 Dose: 25 mg Documented by: Colchicine (Colchicine) 0.6 mg PO DAILY [facility] Last Admin: 06/06/20 09:37 Dose: 0.6 mg Documented by: Enoxaparin Sodium (Enoxaparin) 40 mg SUB-Q QDAY [facility] Last Admin: 06/06/20 09:37 Dose: 40 mg Documented by: Hydromorphone HCl (Dilaudid) 0.5 mg IV Q3H PRN PRN Reason: Pain , Severe (7-10) Last Admin: 06/06/20 16:25 Dose: 0.5 mg Documented by: Sodium Chloride (Nacl 0.9% 1000 Ml) 1,000 mls @ 100 mls/hr IV DIRECT [facility] Last Admin: 06/05/20 08:29 Dose: 100 mls/hr Documented by: Ceftriaxone Sodium (Rocephin/Ns 2 Gm/100 Ml) 2 gm in 100 mls @ 200 mls/hr IV Q24HR [facility]; Protocol Stop: 06/08/20 10:29 Last Admin: 06/06/20 09:37 Dose: 200 mls/hr Documented by: Lisinopril (Zestril) 5 mg PO QDAY [facility] Olanzapine (Zyprexa) 2.5 mg PO QDAY [facility] Last Admin: 06/06/20 09:37 Dose: 2.5 mg Documented by: Olanzapine (Zyprexa) 10 mg PO QHS [facility] Last Admin: 06/05/20 22:19 Dose: 10 mg Documented by: Ondansetron HCl (Zofran) 4 mg IV Q8H PRN PRN Reason: Nausea And Vomiting Oxcarbazepine (Trileptal) 600 mg PO QHS [facility] Last Admin: 06/05/20 22:19 Dose: 600 mg Documented by: Oxcarbazepine (Trileptal) 300 mg PO QDAY [facility] Last Admin: 06/06/20 09:37 Dose: 300 mg Documented by: Oxycodone/Acetaminophen (Percocet 5/325) 1 tab PO Q6H PRN PRN Reason: Pain, Moderate (4-6) Last Admin: 06/06/20 00:37 Dose: 1 tab Documented by: Pantoprazole Sodium (Protonix) 20 mg PO QDAY [facility] Last Admin: 06/06/20 09:37 Dose: 20 mg Documented by: Sodium Chloride (Sodium Chloride Flush Syringe 10 Ml) 10 ml IV BID [facility] Last Admin: 09/24/20 09:38 Dose: 10 ml Documented by: Sodium Chloride (Sodium Chloride Flush Syringe 10 Ml) 10 ml IV PRN PRN PRN Reason: LINE FLUSH Physical Examination - Physical exam Eyes: PERRL ENT: Positive: clear oral mucosa Respiratory effort: normal Respiratory: bilateral: CTA Rhythm: regular Heart Sounds: Positive: S1 & S2 General gastrointestinal: Positive: soft, non-tender, non-distended, normal bowel sounds Integumentary: clear, warm, dry Neurologic: Positive: CNII-XII intact, moves all extremities, gait normal. Negative: focal deficits - Cervical Spine Neck pain: none Tenderness with palpation: none Full ROM: yes ROM: flexion: normal ROM: extension: normal ROM: rotation right: normal ROM: rotation left: normal ROM: lateral flexion right: normal ROM: lateral flexion left: normal - Lumbar Spine Back pain: none Tenderness with palpation: none Appearance: normal Full ROM: yes ROM: flexion: normal ROM: extension: normal ROM: rotation right: normal ROM: rotation left: normal ROM: lateral flexion right: normal ROM: lateral flexion left: normal Assessment and Plan left ankle fracture with possible unstable fx pattern will repeat xrays, 3 views walking boot and walker if ankle unstable will require open reduction internal fixation lateral malleolus
--- NOTE | 2020-06-06 19:29 | Progress Note ---
Assessment and Plan Assessment and plan: --Orthostatic hypotension Iatrogenic Patient on clonidine and lisinopril Both medication stopped Will initiate antihypertensives with a blood pressure goes higher at a lower dose of Coreg or amlodipine --S/P Fall; Fall precautions, physical therapy occupational therapy Supportive care --Closed fracture of left distal fibula, Orthopedic consult requested s/p closed reduction, will follow PT eval Pain medications, supportive care Ortho recommend repeat x-ray Follow recommendations -- Elevated lactic acid level Likely for dehydration, continue IV fluid No sign for infection, resolved --Hyponatremia, mild IV fluids, resolved --Bipolar disorder, continue home antipsychotic medications --DVT prophylaxis, heparin Brief history: This is a 40-year-old male with a history of hypertension and bipolar disorder/PTSD/schizoaffective disorder sent from [facility] for low blood pressure. Patient had a blood pressure of 80/60. Patient fell twice injuring his left ankle. Left ankle x-ray showed mildly displaced oblique fracture of the distal fibula. Also abnormal widening of the medial ankle mortise suggesting associated ligamentous injury. 06/05; continue to hold clonidine and lisinopril, adjust BP medications, follow orthopedic and PT recommendation History Interval history: I have seen and examined the patient in the room Patient's chart and medications reviewed Orthopedic surgeon has evaluated the patient Recommend repeat x-rays and possible surgical intervention if needed Patient complains of mild pain Vital signs noted Hospitalist Physical - Constitutional Vitals: Temp Pulse Resp BP Pulse Ox 98.6 F 83 18 139/87 97 06/06/20 16:03 06/06/20 16:03 06/06/20 16:03 06/06/20 16:03 06/06/20 16:03 General appearance: Present: no acute distress, well-nourished - EENT Eyes: Present: PERRL, EOM intact - Neck Neck: Present: supple, normal ROM - Respiratory Respiratory effort: normal Respiratory: bilateral: diminished, negative: rales, rhonchi, wheezing - Cardiovascular Rhythm: regular Heart Sounds: Present: S1 & S2 - Extremities Extremities: no ischemia, No edema - Abdominal General gastrointestinal: soft, non-tender, non-distended, normal bowel sounds - Integumentary Integumentary: Present: clear, warm - Psychiatric Psychiatric: appropriate mood/affect, cooperative - Neurologic Neurologic: CNII-XII intact, moves all extremities HEART Score - HEART Score Troponin: Troponin T < 0.010 ng/mL (0.00-0.029) 06/04/20 09:34 Results - Labs CBC & Chem 7: 06/05/20 05:21 06/05/20 05:21 Labs: Laboratory Last Values WBC 10.9 K/mm3 (4.5-11.0) 06/05/20 05:21 RBC 4.70 M/mm3 (3.65-5.03) 06/05/20 05:21 Hgb 12.9 gm/dl (11.8-15.2) 06/05/20 05:21 Hct 38.4 % (35.5-45.6) 06/05/20 05:21 MCV 82 fl (84-94) L 06/05/20 05:21 MCH 27 pg (28-32) L 06/05/20 05:21 MCHC 34 % (32-34) 06/05/20 05:21 RDW 15.4 % (13.2-15.2) H 06/05/20 05:21 Plt Count 248 K/mm3 (140-440) 06/05/20 05:21 Lymph % (Auto) 22.2 % (13.4-35.0) 06/05/20 05:21 [place] % (Auto) 6.5 % (0.0-7.3) 06/05/20 05:21 Eos % (Auto) 0.5 % (0.0-4.3) 06/05/20 05:21 Baso % (Auto) 0.5 % (0.0-1.8) 06/05/20 05:21 Lymph # (Auto) 2.4 K/mm3 (1.2-5.4) 06/05/20 05:21 [place] # (Auto) 0.7 K/mm3 (0.0-0.8) 06/05/20 05:21 Eos # (Auto) 0.1 K/mm3 (0.0-0.4) 06/05/20 05:21 Baso # (Auto) 0.1 K/mm3 (0.0-0.1) 06/05/20 05:21 Seg Neutrophils % 70.3 % (40.0-70.0) H 06/05/20 05:21 Seg Neutrophils # 7.7 K/mm3 (1.8-7.7) 06/05/20 05:21 PT 13.9 Sec. (12.2-14.9) 06/04/20 09:34 INR 1.05 (0.87-1.13) 06/04/20 09:34 Sodium 141 mmol/L (137-145) 06/05/20 05:21 Potassium 4.1 mmol/L (3.6-5.0) 06/05/20 05:21 Chloride 107.3 mmol/L (98-107) H 06/05/20 05:21 Carbon Dioxide 22 mmol/L (22-30) 06/05/20 05:21 Anion Gap 16 mmol/L 06/05/20 05:21 BUN 17 mg/dL (9-20) 06/05/20 05:21 Creatinine 1.2 mg/dL (0.8-1.3) 06/05/20 05:21 Estimated GFR > 60 ml/min 06/05/20 05:21 BUN/Creatinine Ratio 14 % 06/05/20 05:21 Glucose 112 mg/dL (75-100) H 06/05/20 05:21 Hemoglobin A1c 6.2 % (4-6) H 06/04/20 16:10 Lactic Acid 2.00 mmol/L (0.7-2.0) 06/04/20 16:10 Calcium 8.6 mg/dL (8.4-10.2) 06/05/20 05:21 Total Bilirubin 0.40 mg/dL (0.1-1.2) 06/05/20 05:21 Direct Bilirubin < 0.2 mg/dL (0-0.2) 06/04/20 12:18 Indirect Bilirubin 0.3 mg/dL 06/04/20 12:18 AST 13 units/L (5-40) 06/05/20 05:21 ALT 22 units/L (7-56) 06/05/20 05:21 Alkaline Phosphatase 80 units/L (35-129) 06/05/20 05:21 Total Creatine Kinase 96 units/L (55-170) 06/04/20 12:18 CK-MB (CK-2) 1.0 ng/mL (0.0-4.0) 06/04/20 12:18 CK-MB (CK-2) Rel Index 1.0 (0-4) 06/04/20 12:18 Troponin T < 0.010 ng/mL (0.00-0.029) 06/04/20 09:34 Total Protein 5.9 g/dL (6.3-8.2) L 06/05/20 05:21 Albumin 3.4 g/dL (3.9-5) L 06/05/20 05:21 Albumin/Globulin Ratio 1.4 % 06/05/20 05:21 Urine Color Yellow (Yellow) 06/05/20 Unknown Urine Turbidity Clear (Clear) 06/05/20 Unknown Urine pH 5.0 (5.0-7.0) 06/05/20 Unknown Ur Specific Sells 1.015 (1.003-1.030) 06/05/20 Unknown Urine Protein <15 mg/dl mg/dL (Negative) 06/05/20 Unknown Urine Glucose (UA) Neg mg/dL (Negative) 06/05/20 Unknown Urine Ketones Neg mg/dL (Negative) 06/05/20 Unknown Urine Blood Neg (Negative) 06/05/20 Unknown Urine Nitrite Neg (Negative) 06/05/20 Unknown Urine Bilirubin Neg (Negative) 06/05/20 Unknown Urine Urobilinogen < 2.0 mg/dL (<2.0) 06/05/20 Unknown Ur Leukocyte Esterase Neg (Negative) 06/05/20 Unknown Urine WBC (Auto) 2.0 /HPF (0.0-6.0) 06/05/20 Unknown Urine RBC (Auto) < 1.0 /HPF (0.0-6.0) 06/05/20 Unknown U Epithel Cells (Auto) < 1.0 /HPF (0-13.0) 06/05/20 Unknown Urine Mucus Few /HPF 06/05/20 Unknown Nasal Screen MRSA (PCR) Negative (Negative) 06/05/20 00:35 Microbiology: Microbiology 06/04/20 09:34 Peripheral/Venous Blood Culture - Preliminary NO GROWTH AFTER 48 HOURS 06/04/20 09:34 Peripheral/Venous Blood Culture - Preliminary NO GROWTH AFTER 48 HOURS 06/05/20 12:05 Urine,Clean Catch Urine Culture - Preliminary NO GROWTH AFTER 24 HOURS Peterson/IV: Voiding Method Urinal IV Catheter Type [Right INT / Saline Lock Antecubital] Active Medications - Current Medications Current Medications: Generic Name Dose Route Start Last Admin Trade Name Freq PRN Reason Stop Dose Admin Acetaminophen 650 mg 06/04/20 14:54 Tylenol PO Q4H PRN Pain MILD(1-3)/Fever >100.5/MARCH Carvedilol 25 mg 06/06/20 13:00 06/06/20 12:53 Coreg PO 25 mg BID BERNARDO Administration Colchicine 0.6 mg 06/04/20 15:00 06/06/20 09:37 Colchicine PO 0.6 mg DAILY BERNARDO Administration Enoxaparin Sodium 40 mg 06/04/20 15:00 06/06/20 09:37 Enoxaparin SUB-Q 40 mg QDAY BERNARDO Administration Hydromorphone HCl 0.5 mg 06/04/20 14:54 06/06/20 16:25 Dilaudid IV 0.5 mg Q3H PRN Administration Pain , Severe (7-10) Sodium Chloride 1,000 mls @ 100 mls/hr 06/04/20 15:00 06/05/20 08:29 Nacl 0.9% 1000 Ml IV 100 mls/hr DIRECT BERNARDO Administration Ceftriaxone Sodium 2 gm in 100 mls @ 200 mls/hr 06/04/20 15:00 06/06/20 09:37 Rocephin/Ns 2 Gm/100 Ml IV 06/08/20 10:29 200 mls/hr Q24HR BERNARDO Administration Protocol Lisinopril 5 mg 06/07/20 10:00 Zestril PO QDAY BERNARDO Olanzapine 2.5 mg 06/06/20 10:00 06/06/20 09:37 Zyprexa PO 2.5 mg QDAY BERNARDO Administration Olanzapine 10 mg 06/05/20 22:00 06/05/20 22:19 Zyprexa PO 10 mg QHS BERNARDO Administration Ondansetron HCl 4 mg 06/04/20 14:54 Zofran IV Q8H PRN Nausea And Vomiting Oxcarbazepine 600 mg 06/05/20 22:00 06/05/20 22:19 Trileptal PO 600 mg QHS BERNARDO Administration Oxcarbazepine 300 mg 06/06/20 10:00 06/06/20 09:37 Trileptal PO 300 mg QDAY BERNARDO Administration Oxycodone/Acetaminophen 1 tab 06/04/20 14:54 06/06/20 18:40 Percocet 5/325 PO 1 tab Q6H PRN Administration Pain, Moderate (4-6) Pantoprazole Sodium 20 mg 06/04/20 15:00 06/06/20 09:37 Protonix PO 20 mg QDAY BERNARDO Administration Sodium Chloride 10 ml 06/04/20 15:00 06/06/20 09:38 Sodium Chloride Flush Syringe 10 Ml IV 10 ml BID BERNARDO Administration Sodium Chloride 10 ml 06/04/20 14:54 Sodium Chloride Flush Syringe 10 Ml IV PRN PRN LINE FLUSH
--- NOTE | 2020-06-06 19:47 | XRay Report ---
LEFT ANKLE 3 VIEWS INDICATION / CLINICAL INFORMATION: history of fall. COMPARISON: Prior radiographs, 06/04/2020 FINDINGS: Since prior radiographs, a partial cast/splint has been placed. Distal fibular fracture remains mildl y displaced but not acutely changed in appearance. Medial malleolar fracture is unchanged as well. Th ere remains some tibiotalar subluxation which is unchanged from precast radiographs. IMPRESSION: Bimalleolar ankle fracture and tibiotalar subluxation remain grossly stable in appearance since 06/04/2020. Signer Name: Suzette Koch MD Signed: 06/06/2020 7:43 PM Workstation Name: [id number]
[2020-06-07] MEDS: oxyCODONE /ACETAMINOPHEN 5-325MG TAB PO PRN (05:17)
[2020-06-07] MEDS: COLCHICINE 0.6 MG CAP PO SCH (10:03)
[2020-06-07] MEDS: PANTOPRAZOLE 20 MG TAB PO SCH (10:03)
[2020-06-07] MEDS: carvediloL 25 MG TAB PO SCH ×2 (10:04→21:28)
[2020-06-07] MEDS: ENOXAPARIN 40 MG/0.4 ML INJ SUB-Q SCH (10:05)
[2020-06-07] MEDS: cefTRIAXone/NS 2 GM/100 ML 2 GM/100 ML BAG IV SCH (10:05)
[2020-06-07] MEDS: OXcarbazepine 300 MG TAB PO SCH ×2 (10:06→21:27)
[2020-06-07] MEDS: LISINOPRIL 5 MG TAB PO SCH (10:06)
--- NOTE | 2020-06-07 16:06 | Progress Note ---
Assessment and Plan left bimalleolar ankle fracture may dc to [facility] will schedule surgery thru office steffi.... Subjective Date of service: 06/07/20 Interval history: repeat xrays left ankle reveal displaced bimalleolar fracture with widening ankle mortise, will require open reduction internal fixation at some point soon, ok to dc to [facility] facility will make arrangements for outpatient ORIF left ankle r Objective Vital signs: Vital Signs - 12hr 06/07/20 06/07/20 06/07/20 04:37 04:38 08:01 Temperature 98.8 F 98.4 F Pulse Rate 76 79 90 Respiratory 20 18 Rate Blood Pressure 114/80 141/86 O2 Sat by Pulse 95 92 Oximetry 06/07/20 06/07/20 10:04 10:06 Temperature Pulse Rate 90 90 Respiratory Rate Blood Pressure 141/86 141/86 O2 Sat by Pulse Oximetry - Labs CBC & BMP: 06/05/20 05:21 06/05/20 05:21
--- NOTE | 2020-06-07 19:27 | Progress Note ---
Assessment and Plan Assessment and plan: --S/P Fall; Fall precautions, physical therapy occupational therapy Supportive care --Closed fracture of left distal fibula, Orthopedic consult requested s/p closed reduction, will follow PT eval Pain medications, supportive care Ortho recommend repeat x-ray stable ankle Follow recommendations --Orthostatic hypotension Iatrogenic Patient on clonidine and lisinopril Both medication stopped Will initiate antihypertensives with a blood pressure goes higher at a lower dose of Coreg or amlodipine -- Elevated lactic acid level/resolved Likely for dehydration, continue IV fluid No sign for infection, resolved --Hyponatremia, resolved IV fluids, resolved --Bipolar disorder, continue home antipsychotic medications --DVT prophylaxis, heparin Brief history: This is a 40-year-old male with a history of hypertension and bipolar disorder/PTSD/schizoaffective disorder sent from [facility] for low blood pressure. Patient had a blood pressure of 80/60. Patient fell twice injuring his left ankle. Left ankle x-ray showed mildly displaced oblique fracture of the distal fibula. Also abnormal widening of the medial ankle mortise suggesting associated ligamentous injury. 06/05; continue to hold clonidine and lisinopril, adjust BP medications, follow orthopedic and PT recommendation 06/07; awaiting to return to [place], DC planning per case management History Interval history: I have seen and examined the patient at the bedside Patient's chart and medications reviewed Patient feels slightly better Case management setting up discharge planning to [place] Vital signs reviewed Hospitalist Physical - Constitutional Vitals: Temp Pulse Resp BP Pulse Ox 98.8 F 79 18 117/72 98 06/07/20 16:11 06/07/20 16:12 06/07/20 16:11 06/07/20 16:11 06/07/20 16:12 General appearance: Present: no acute distress, well-nourished - EENT Eyes: Present: PERRL, EOM intact - Neck Neck: Present: supple, normal ROM - Respiratory Respiratory effort: normal Respiratory: bilateral: diminished, negative: rales, rhonchi, wheezing - Cardiovascular Rhythm: regular Heart Sounds: Present: S1 & S2 - Extremities Extremities: abnormal (Ankle boot in place) - Abdominal General gastrointestinal: soft, non-tender, non-distended - Integumentary Integumentary: Present: clear, warm - Psychiatric Psychiatric: appropriate mood/affect, cooperative - Neurologic Neurologic: moves all extremities HEART Score - HEART Score Troponin: Troponin T < 0.010 ng/mL (0.00-0.029) 06/04/20 09:34 Results - Labs CBC & Chem 7: 06/05/20 05:21 06/05/20 05:21 Labs: Laboratory Last Values WBC 10.9 K/mm3 (4.5-11.0) 06/05/20 05:21 RBC 4.70 M/mm3 (3.65-5.03) 06/05/20 05:21 Hgb 12.9 gm/dl (11.8-15.2) 06/05/20 05:21 Hct 38.4 % (35.5-45.6) 06/05/20 05:21 MCV 82 fl (84-94) L 06/05/20 05:21 MCH 27 pg (28-32) L 06/05/20 05:21 MCHC 34 % (32-34) 06/05/20 05:21 RDW 15.4 % (13.2-15.2) H 06/05/20 05:21 Plt Count 248 K/mm3 (140-440) 06/05/20 05:21 Lymph % (Auto) 22.2 % (13.4-35.0) 06/05/20 05:21 [place] % (Auto) 6.5 % (0.0-7.3) 06/05/20 05:21 Eos % (Auto) 0.5 % (0.0-4.3) 06/05/20 05:21 Baso % (Auto) 0.5 % (0.0-1.8) 06/05/20 05:21 Lymph # (Auto) 2.4 K/mm3 (1.2-5.4) 06/05/20 05:21 [place] # (Auto) 0.7 K/mm3 (0.0-0.8) 06/05/20 05:21 Eos # (Auto) 0.1 K/mm3 (0.0-0.4) 06/05/20 05:21 Baso # (Auto) 0.1 K/mm3 (0.0-0.1) 06/05/20 05:21 Seg Neutrophils % 70.3 % (40.0-70.0) H 06/05/20 05:21 Seg Neutrophils # 7.7 K/mm3 (1.8-7.7) 06/05/20 05:21 PT 13.9 Sec. (12.2-14.9) 06/04/20 09:34 INR 1.05 (0.87-1.13) 06/04/20 09:34 Sodium 141 mmol/L (137-145) 06/05/20 05:21 Potassium 4.1 mmol/L (3.6-5.0) 06/05/20 05:21 Chloride 107.3 mmol/L (98-107) H 06/05/20 05:21 Carbon Dioxide 22 mmol/L (22-30) 06/05/20 05:21 Anion Gap 16 mmol/L 06/05/20 05:21 BUN 17 mg/dL (9-20) 06/05/20 05:21 Creatinine 1.2 mg/dL (0.8-1.3) 06/05/20 05:21 Estimated GFR > 60 ml/min 06/05/20 05:21 BUN/Creatinine Ratio 14 % 06/05/20 05:21 Glucose 112 mg/dL (75-100) H 06/05/20 05:21 Hemoglobin A1c 6.2 % (4-6) H 06/04/20 16:10 Lactic Acid 2.00 mmol/L (0.7-2.0) 06/04/20 16:10 Calcium 8.6 mg/dL (8.4-10.2) 06/05/20 05:21 Total Bilirubin 0.40 mg/dL (0.1-1.2) 06/05/20 05:21 Direct Bilirubin < 0.2 mg/dL (0-0.2) 06/04/20 12:18 Indirect Bilirubin 0.3 mg/dL 06/04/20 12:18 AST 13 units/L (5-40) 06/05/20 05:21 ALT 22 units/L (7-56) 06/05/20 05:21 Alkaline Phosphatase 80 units/L (35-129) 06/05/20 05:21 Total Creatine Kinase 96 units/L (55-170) 06/04/20 12:18 CK-MB (CK-2) 1.0 ng/mL (0.0-4.0) 06/04/20 12:18 CK-MB (CK-2) Rel Index 1.0 (0-4) 06/04/20 12:18 Troponin T < 0.010 ng/mL (0.00-0.029) 06/04/20 09:34 Total Protein 5.9 g/dL (6.3-8.2) L 06/05/20 05:21 Albumin 3.4 g/dL (3.9-5) L 06/05/20 05:21 Albumin/Globulin Ratio 1.4 % 06/05/20 05:21 Urine Color Yellow (Yellow) 06/05/20 Unknown Urine Turbidity Clear (Clear) 06/05/20 Unknown Urine pH 5.0 (5.0-7.0) 06/05/20 Unknown Ur Specific [place] 1.015 (1.003-1.030) 06/05/20 Unknown Urine Protein <15 mg/dl mg/dL (Negative) 06/05/20 Unknown Urine Glucose (UA) Neg mg/dL (Negative) 06/05/20 Unknown Urine Ketones Neg mg/dL (Negative) 06/05/20 Unknown Urine Blood Neg (Negative) 06/05/20 Unknown Urine Nitrite Neg (Negative) 06/05/20 Unknown Urine Bilirubin Neg (Negative) 06/05/20 Unknown Urine Urobilinogen < 2.0 mg/dL (<2.0) 06/05/20 Unknown Ur Leukocyte Esterase Neg (Negative) 06/05/20 Unknown Urine WBC (Auto) 2.0 /HPF (0.0-6.0) 06/05/20 Unknown Urine RBC (Auto) < 1.0 /HPF (0.0-6.0) 06/05/20 Unknown U Epithel Cells (Auto) < 1.0 /HPF (0-13.0) 06/05/20 Unknown Urine Mucus Few /HPF 06/05/20 Unknown Nasal Screen MRSA (PCR) Negative (Negative) 06/05/20 00:35 Microbiology: Microbiology 06/05/20 12:05 Urine,Clean Catch Urine Culture - Final NO GROWTH AFTER 48 HOURS 06/04/20 09:34 Peripheral/Venous Blood Culture - Preliminary NO GROWTH AFTER 72 HOURS 06/04/20 09:34 Peripheral/Venous Blood Culture - Preliminary NO GROWTH AFTER 72 HOURS Peterson/IV: Voiding Method Toilet IV Catheter Type [Right INT / Saline Lock Antecubital] Active Medications - Current Medications Current Medications: Generic Name Dose Route Start Last Admin Trade Name Freq PRN Reason Stop Dose Admin Acetaminophen 650 mg 06/04/20 14:54 Tylenol PO Q4H PRN Pain MILD(1-3)/Fever >100.5/MARCH Carvedilol 25 mg 06/06/20 13:00 06/07/20 10:04 Coreg PO 25 mg BID BERNARDO Administration Colchicine 0.6 mg 06/04/20 15:00 06/07/20 10:03 Colchicine PO 0.6 mg DAILY BERNARDO Administration Enoxaparin Sodium 40 mg 06/04/20 15:00 06/07/20 10:05 Enoxaparin SUB-Q 40 mg QDAY BERNARDO Administration Hydromorphone HCl 0.5 mg 06/04/20 14:54 06/06/20 16:25 Dilaudid IV 0.5 mg Q3H PRN Administration Pain , Severe (7-10) Sodium Chloride 1,000 mls @ 100 mls/hr 06/04/20 15:00 06/05/20 08:29 Nacl 0.9% 1000 Ml IV 100 mls/hr DIRECT BERNARDO Administration Ceftriaxone Sodium 2 gm in 100 mls @ 200 mls/hr 06/04/20 15:00 06/07/20 10:05 Rocephin/Ns 2 Gm/100 Ml IV 06/08/20 10:29 200 mls/hr Q24HR BERNARDO Administration Protocol Lisinopril 5 mg 06/07/20 10:00 06/07/20 10:06 Zestril PO 5 mg QDAY BERNARDO Administration Olanzapine 2.5 mg 06/06/20 10:00 06/07/20 10:07 Zyprexa PO 2.5 mg QDAY BERNARDO Administration Olanzapine 10 mg 06/05/20 22:00 06/06/20 22:10 Zyprexa PO 10 mg QHS BERNARDO Administration Ondansetron HCl 4 mg 06/04/20 14:54 Zofran IV Q8H PRN Nausea And Vomiting Oxcarbazepine 600 mg 06/05/20 22:00 06/06/20 22:06 Trileptal PO 600 mg QHS BERNARDO Administration Oxcarbazepine 300 mg 06/06/20 10:00 06/07/20 10:06 Trileptal PO 300 mg QDAY BERNARDO Administration Oxycodone/Acetaminophen 1 tab 06/04/20 14:54 06/07/20 05:17 Percocet 5/325 PO 1 tab Q6H PRN Administration Pain, Moderate (4-6) Pantoprazole Sodium 20 mg 06/04/20 15:00 06/07/20 10:03 Protonix PO 20 mg QDAY BERNARDO Administration Sodium Chloride 10 ml 06/04/20 15:00 06/07/20 10:07 Sodium Chloride Flush Syringe 10 Ml IV 10 ml BID BERNARDO Administration Sodium Chloride 10 ml 06/04/20 14:54 Sodium Chloride Flush Syringe 10 Ml IV PRN PRN LINE FLUSH
[2020-06-08 09:03] VITALS: BP 126/62
[2020-06-08] MEDS: ENOXAPARIN 40 MG/0.4 ML INJ SUB-Q SCH (10:05)
[2020-06-08] MEDS: LISINOPRIL 5 MG TAB PO SCH (10:05)
[2020-06-08] MEDS: PANTOPRAZOLE 20 MG TAB PO SCH (10:05)
[2020-06-08] MEDS: OXcarbazepine 300 MG TAB PO SCH (10:05)
[2020-06-08] MEDS: COLCHICINE 0.6 MG CAP PO SCH (10:05)
[2020-06-08] MEDS: carvediloL 25 MG TAB PO SCH (10:05)
[2020-06-08] MEDS: cefTRIAXone/NS 2 GM/100 ML 2 GM/100 ML BAG IV SCH (10:07)
--- NOTE | 2020-06-08 12:13 | Discharge Summary ---
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
== END 2020-06-08 12:41 | disposition other institution (70) ==
LOC: ED 08:59 → 4A 14:54
PROVIDERS: ADMIT Internal Medicine; ATTEND Internal Medicine
DX: I95.1 Orthostatic hypotension (principal); R42 Dizziness and giddiness; S82.832A Other fracture of upper and lower end of left fibula, initial encounter for closed fracture; S82.842A Displaced bimalleolar fracture of left lower leg, initial encounter for closed fracture; R74.0 Nonspecific elevation of levels of transaminase and lactic acid dehydrogenase [LDH]; E87.1 Hypo-osmolality and hyponatremia; F31.9 Bipolar disorder, unspecified; I10 Essential (primary) hypertension; F43.10 Post-traumatic stress disorder, unspecified; F20.9 Schizophrenia, unspecified; K21.9 Gastro-esophageal reflux disease without esophagitis; M10.9 Gout, unspecified; T50.905A Adverse effect of unspecified drugs, medicaments and biological substances, initial encounter; N17.9 Acute kidney failure, unspecified; Z90.49 Acquired absence of other specified parts of digestive tract; Z79.899 Other long term (current) drug therapy; Z88.2 Allergy status to sulfonamides; Z88.5 Allergy status to narcotic agent; Z91.018 Allergy to other foods; W18.39XA Other fall on same level, initial encounter; Y93.89 Activity, other specified; Y92.89 Other specified places as the place of occurrence of the external cause
CPT/HCPCS: 36415; 71045; 73600; 73610; 80048; 80053; 80076; 81001; 82140; 82550; 82553; 83036; 84484; 85025; 85610; 87040; 87086; 87641; 93005; 96361; 96365; 96366; 96372; 96375; 96376; 97110; 97116; 97162; 99285; G0378; J0696; J1170; J1650; J3246; J7030

== ENCOUNTER 2020-06-14 10:07 | Observation (INO) | payer MEDICARE ==
[~2020-06-14 10:07] MED LIST: GABAPENTIN 300 MG CAP PO NR; MIDAZOLAM 2 MG/2 ML INJ IV NR; ceFAZolin/STERILE WATER 2 GM/20 ML SYRINGE IV NR; ceFAZolin/Water 2 GM/20 ML 2 GM/20 ML SYRINGE IV NR; fentaNYL 100 MCG/2 ML INJ IV PRN
[2020-06-14] MEDS: LACTATED RINGERS 1,000 ML IV SCH ×2 (11:00→23:51)
[2020-06-14] MEDS ORDERED: dexAMETHasone 4 MG/ML VIAL ONE (11:13)
[2020-06-14] MEDS ORDERED: cloNIDine/PF 1,000 MCG/10 ML VIAL EP ONE (11:13)
[2020-06-14] MEDS ORDERED: BUPIVACAINE-EPINEPHRINE/PF 0.5%-1:200,000 (30 ML) VIAL INFILTRATI ONE (11:14)
--- NOTE | 2020-06-14 12:08 | Anesthesia Consultation ---
Anesthesia Consult and Med Hx Date of service: 06/14/20 - Airway Anesthetic Teeth Evaluation: Poor (multiple broken and eroded teeth) ROM Head & Neck: Adequate Mental/Hyoid Distance: Adequate Mallampati Class: Class II Intubation Access Assessment: Probably Good - Pulmonary Exam CTA: Yes - Cardiac Exam Cardiac Exam: RRR - Pre-Operative Health Status ASA Pre-Surgery Classification: ASA2 Proposed Anesthetic Plan: General Nerve Block: Adductor canal - Pulmonary Hx Smoking: No Hx Respiratory Symptoms: No Hx Sleep Apnea: No (CHET PRE SCREEN HIGH RISK) - Cardiovascular System Hx Hypertension: Yes (took carvedilol this morning) Hx Heart Attack/AMI: No Hx Percutaneous Transluminal Coronary Angioplasty (PTCA): No Hx Cardia Arrhythmia: No - Central Nervous System CVA: No Hx Psychiatric Problems: Yes (bipolar d/p, depression, schizophrenia) - Gastrointestinal Hx Gastroesophageal Reflux Disease: Yes (asymptomatic today) - Endocrine Hx Renal Disease: No Hx Liver Disease: No Hx Insulin Dependent Diabetes: No Hx Non-Insulin Dependent Diabetes: No Hx Thyroid Disease: No - Other Systems Hx Obesity: Yes (BMI 38) - Additional Comments Anesthesia Medical History Comments: No hx anesthetic complications.
--- NOTE | 2020-06-14 12:08 | Anesthesia Day of Surgery ---
Anesthesia Day of Surgery - Day of Surgery Patient Examined: Yes Patient H&P Reviewed: Yes Patient is NPO: Yes
[2020-06-14] MEDS ORDERED: HYDROmorphone 1 MG/1 ML INJ IV PRN (12:09)
[2020-06-14] MEDS ORDERED: propofoL 200 MG/20 ML VIAL IV ONE (12:22)
[2020-06-14] MEDS ORDERED: fentaNYL 100 MCG/2 ML INJ ONE ×2 (12:22→14:36)
[2020-06-14] MEDS ORDERED: ceFAZolin 1 GM VIAL ONE (12:38)
[2020-06-14] MEDS ORDERED: HYDROmorphone 1 MG/1 ML INJ ONE (13:17)
[2020-06-14] MEDS ORDERED: PHENYLEPHRINE/NS 1,000 MCG/10 ML SYRINGE (OR USE) IV ONE (13:25)
--- NOTE | 2020-06-14 15:00 | Procedure Note ---
Date of procedure: 06/14/20 Pre-op diagnosis: Displaced left bimalleolar ankle fracture Post-op diagnosis: same Procedure: Open reduction internal fixation left ankle fracture Procedure Patient was brought to the operating room after being given a femoral and obturator nerve block in preop holding patient was then placed onto the OR table supine following induction with MAC anesthesia the patient's left lower extremity was prepped and draped in the usual sterile manner. A timeout procedure was done to identify the patient and the correct operative site. Next the leg was exsanguinated followed by inflation of the pneumatic tourniquet to 300 mmHg a lateral incision was made over the distal fibula this is taken down sharply through skin subcu the fracture was identified using traction manipulation and bone forceps the fracture was reduced and held in place by her bone clamps next a 7 hole one third semitubular plate was applied to the distal fibula screws of various lengths were used to stabilize this plate next attention was then turned to the medial malleolus fragment using a curvilinear incision over the medial malleolus this was then taken down sharply through skin and subcu the patient was noted to have a small fragment with attached ligamentous structures attempts at fixation with cannulated screws were unsuccessful due to the nature of the fracture piece therefore the medial fragment was aligned using nonabsorbable sutures reinforced with the deltoid lig ament AP lateral and mortise views were obtained showing good reduction at the lateral malleolus as well as the medial malleolus fragment following this the wounds were copiously irrigated and were closed in a standard routine fashion postop dressings were applied as well as a well-padded short leg splint with inversion patient tolerated the procedure there were no complications he was sent to postanesthesia recovery in a stable condition Anesthesia: MAC, regional Surgeon: KIM BOWIE (Yocasta Hook, 1st retail assistant) Estimated blood loss: minimal Pathology: none Condition: stable Disposition: PACU
--- NOTE | 2020-06-14 15:16 | XRay Report ---
LEFT ANKLE 2 VIEWS INDICATION: ORIF LT ANKLE/LT ANKLE FX. COMPARISON: 06/06/2020 IMPRESSION: 26 seconds of fluoroscopy time was provided by radiology during internal fixation of a d istal fibular fracture. 2 fluoroscopic images are presented demonstrating fixation of the distal fibu la with metal plate and screws. Alignment is anatomic. Medial malleolus fracture has been reduced and is now anatomic in alignment. Lateral subluxation of the talus has also been reduced. Diffuse soft t issue swelling is noted. Signer Name: Parag Osorio Jr, MD Signed: 06/14/2020 3:12 PM Workstation Name: [id number]
--- NOTE | 2020-06-14 16:15 | Post Anesthesia Evaluation ---
- Post Anesthesia Evaluation Patient Participated: Yes Airway Patent: Yes Stable Respiratory Function: Yes Nausea/Vomiting: No Temp > 96.8F: Yes Pain Manageable: Yes Adequeate Hydration: Yes Anesthesia Complications: No Block Receding Appropriately: Yes (pain well controlled with regional block)
[2020-06-15] MEDS: oxyCODONE /ACETAMINOPHEN 5-325MG TAB PO PRN ×3 (06:25→21:22)
[2020-06-16] MEDS: oxyCODONE /ACETAMINOPHEN 5-325MG TAB PO PRN ×4 (02:33→20:42)
--- NOTE | 2020-06-16 12:30 | XRay Report ---
CHEST 1 VIEW 06/16/2020 12:16 PM INDICATION / CLINICAL INFORMATION: cough. COMPARISON: 06/04/2020 FINDINGS: SUPPORT DEVICES: None. HEART / MEDIASTINUM: No significant abnormality. LUNGS / PLEURA: No significant pulmonary or pleural abnormality. No pneumothorax. ADDITIONAL FINDINGS: No significant additional findings. IMPRESSION: 1. No acute findings. Signer Name: Sunny Covington MD Signed: 06/16/2020 12:26 PM Workstation Name: [id number]
[2020-06-16] MEDS: carvediloL 25 MG TAB PO SCH ×2 (15:27→22:25)
[2020-06-16] MEDS ORDERED: IBUPROFEN 600 MG TAB PO PRN (21:46)
--- NOTE | 2020-06-16 21:53 | Consultation ---
History of Present Illness - Reason for Consult Consult date: 06/16/20 Medical management Requesting physician: KIM BOWIE - History of Present Illness Admitted for Displaced left bimalleolar ankle fracture. Had surgery on 06/14/2020. Postop patient is doing well Past History Past Medical History: hypertension, other (Schizophrenia) Past Surgical History: Other (Left ankle surgery) Social history: lives with family, full code Family history: hypertension Medications and Allergies Allergies Allergy/AdvReac Type Severity Reaction Status Date / Time codeine Allergy Anaphylaxis Verified 10/08/18 19:56 onion Allergy Anaphylaxis Verified 01/28/19 21:16 Sulfa (Sulfonamide Allergy Anaphylaxis Verified 10/08/18 19:56 Antibiotics) Home Medications Medication Instructions Recorded Confirmed Last Taken Type Ibuprofen [Motrin 600 MG tab] 600 mg PO Q8H PRN #30 tablet 06/08/18 06/14/20 06/13/20 20:30 Rx Citalopram Hydrobromide [Celexa] 40 mg PO QAM 06/04/20 06/14/20 06/13/20 06:30 History OLANzapine [ZyPREXA] 2.5 mg PO QAM 06/04/20 06/14/20 06/13/20 06:30 History OLANzapine [Zyprexa] 10 mg PO QHS 06/04/20 06/14/20 06/13/20 20:30 History carvediloL [Coreg] 25 mg PO BID 06/04/20 06/14/20 06/14/20 06:30 History OXcarbazepine [Trileptal] 300 mg PO QAM 06/05/20 06/14/20 06/13/20 06:30 History OXcarbazepine [Trileptal] 600 mg PO HS 06/05/20 06/14/20 06/13/20 20:30 History Benztropine [Cogentin] 1 mg PO BID 06/06/20 06/14/20 06/13/20 17:00 History oxyCODONE /ACETAMINOPHEN [Percocet 1 tab PO Q6HR PRN #30 tablet 06/14/20 Unknown Rx 5/325] Active Meds: Active Medications Benztropine Mesylate (Cogentin) 1 mg PO BID [facility] Carvedilol (Coreg) 25 mg PO BID [facility] Last Admin: 06/16/20 15:27 Dose: 25 mg Documented by: Carvedilol (Coreg) 25 mg PO BID BERNARDO Fentanyl (Sublimaze) 100 mcg IV ONCE PRN PRN Reason: sedation for nerve block Last Admin: 06/14/20 11:45 Dose: 100 mcg Documented by: Ibuprofen (Ibuprofen) 600 mg PO Q8H PRN PRN Reason: PAIN Miscellaneous Medication (Citalopram Hydrobromide [Celexa]) 40 mg PO QAM BERNARDO Miscellaneous Medication (Oxcarbazepine [Trileptal]) 600 mg PO HS BERNARDO Olanzapine (Zyprexa) 2.5 mg PO QAM BERNARDO Olanzapine (Zyprexa) 10 mg PO QHS BERNARDO Oxcarbazepine (Trileptal) 300 mg PO QAM BERNARDO Oxycodone/Acetaminophen (Percocet 5/325) 1 tab PO Q6H PRN PRN Reason: Pain, Moderate (4-6) Last Admin: 06/16/20 20:42 Dose: 1 tab Documented by: Exam - Constitutional Vitals: Temp Pulse Resp BP Pulse Ox 98.3 F 76 16 152/89 93 06/16/20 19:45 06/16/20 19:45 06/16/20 19:45 06/16/20 19:45 06/16/20 19:45 General appearance: Present: no acute distress, well-nourished - EENT Eyes: Present: PERRL ENT: hearing intact, clear oral mucosa - Neck Neck: Present: supple, normal ROM - Respiratory Respiratory effort: normal Respiratory: bilateral: CTA - Cardiovascular Heart Sounds: Present: S1 & S2. Absent: rub, click - Extremities Extremities: pulses symmetrical, No edema Extremity abnormal: other (Left ankle in dressing) Peripheral Pulses: within normal limits - Abdominal General gastrointestinal: Present: soft, non-tender, non-distended, normal bowel sounds Male genitourinary: Present: normal - Integumentary Integumentary: Present: clear, warm, dry - Musculoskeletal Musculoskeletal: gait normal, strength equal bilaterally - Psychiatric Psychiatric: appropriate mood/affect, intact judgment & insight - Neurologic Neurologic: CNII-XII intact, moves all extremities Assessment and Plan - Patient Problems (1) Ankle fracture, left Current Visit: Yes Status: Acute Qualifiers: Encounter type: initial encounter Fracture type: closed Qualified Code(s): S82.892A - Other fracture of left lower leg, initial encounter for closed fracture Plan to address problem: Patient had surgery on 06/14/2020. Patient is stable postop. Has pain in the left ankle about 6 on a scale of 1-10. (2) Hypotension Current Visit: No Status: Chronic Qualifiers: Hypotension type: idiopathic hypotension Qualified Code(s): I95.0 - Idiopathic hypotension Plan to address problem: Continue antihypertensives (3) Bipolar disorder Current Visit: No Status: Chronic Qualifiers: Active/Remission status: in full remission Plan to address problem: Continue Zyprexa (4) DVT prophylaxis Current Visit: No Status: Acute Plan to address problem: On heparin and GI prophylaxis
[2020-06-16] MEDS: BENZTROPINE 1 MG TAB PO SCH (23:00)
[2020-06-16] MEDS: OXcarbazepine 300 MG TAB PO SCH (23:01)
[2020-06-17] MEDS: CITALOPRAM 20 MG TAB PO SCH (10:26)
[2020-06-17] MEDS: carvediloL 25 MG TAB PO SCH ×3 (10:27→22:04)
[2020-06-17] MEDS: OXcarbazepine 300 MG TAB PO SCH ×2 (10:27→22:04)
[2020-06-17] MEDS: BENZTROPINE 1 MG TAB PO SCH ×2 (10:27→22:04)
[2020-06-17] MEDS: oxyCODONE /ACETAMINOPHEN 5-325MG TAB PO PRN ×2 (10:35→22:05)
--- NOTE | 2020-06-17 15:26 | Progress Note ---
Assessment and Plan - Patient Problems (1) Ankle fracture, left Current Visit: Yes Status: Acute Qualifiers: Encounter type: initial encounter Fracture type: closed Qualified Code(s): S82.892A - Other fracture of left lower leg, initial encounter for closed fracture Plan to address problem: Patient had surgery on 06/14/2020. Patient is stable postop. Has pain in the left ankle about 6 on a scale of 1-10. Waiting for placement to subacute rehab (2) Bipolar disorder Current Visit: No Status: Chronic Qualifiers: Active/Remission status: in full remission Plan to address problem: Continue Zyprexa (3) Hypertension Current Visit: Yes Status: Chronic Qualifiers: Hypertension type: essential hypertension Qualified Code(s): I10 - Essential (primary) hypertension Plan to address problem: Continue antihypertensives and adjust meds patient is as necessary (4) DVT prophylaxis Current Visit: No Status: Acute Plan to address problem: On heparin and GI prophylaxis (5) Discharge planning issues Current Visit: Yes Status: Acute Plan to address problem: Patient to be discharged to [facility] to discuss with case management about placement for tomorrow Subjective Date of service: 06/17/20 Principal diagnosis: Left ankle fracture Interval history: Open reduction internal fixation left ankle fracture by Dr. Carrillo. Postop patient doing well. Waiting for placement. Objective - Constitutional Vitals: Vital Signs - 12hr 06/17/20 06/17/20 06/17/20 05:14 07:58 10:27 Temperature 98.3 F 98.2 F Pulse Rate 68 76 76 Respiratory 18 20 Rate Blood Pressure 121/64 152/88 152/88 O2 Sat by Pulse 93 95 Oximetry General appearance: Present: no acute distress, well-nourished - EENT Eyes: PERRL, EOM intact ENT: hearing intact, clear oral mucosa Ears: bilateral: normal - Neck Neck: supple, normal ROM - Respiratory Respiratory effort: normal Respiratory: bilateral: CTA - Breasts Breasts: normal - Cardiovascular Heart rate: 78 Rhythm: regular Heart Sounds: Present: S1 & S2. Absent: gallop, rub Extremities: pulses intact, No edema, normal color, Full ROM Extremity abnormal: other (Left ankle in dressing. Swelling present.) - Gastrointestinal General gastrointestinal: Present: soft, non-tender, non-distended, normal bowel sounds - Genitourinary Male genitourinary: normal - Integumentary Integumentary: clear, warm, dry - Musculoskeletal Musculoskeletal: 1, strength equal bilaterally - Neurologic Neurologic: moves all extremities - Psychiatric Psychiatric: memory intact, appropriate mood/affect, intact judgment & insight
[2020-06-18] MEDS: oxyCODONE /ACETAMINOPHEN 5-325MG TAB PO PRN ×2 (05:49→21:42)
--- NOTE | 2020-06-18 08:03 | Progress Note ---
Assessment and Plan Assessment and plan: Open reduction internal fixation left ankle fracture by Dr. Carrillo. Postop patient doing well. Waiting for placement. (1) Ankle fracture, left Current Visit: Yes Status: Acute Qualifiers: Encounter type: initial encounter Fracture type: closed Qualified Code(s): S82.892A - Other fracture of left lower leg, initial encounter for closed fracture Plan to address problem: Patient had surgery on 06/14/2020. Patient is stable postop. Has pain in the left ankle about 6 on a scale of 1-10. Waiting for placement to subacute rehab (2) Bipolar disorder Current Visit: No Status: Chronic Qualifiers: Active/Remission status: in full remission Plan to address problem: Continue Zyprexa (3) Hypertension Current Visit: Yes Status: Chronic Qualifiers: Hypertension type: essential hypertension Qualified Code(s): I10 - Essential (primary) hypertension Plan to address problem: Continue antihypertensives and adjust meds patient is as necessary (4) DVT prophylaxis Current Visit: No Status: Acute Plan to address problem: On heparin and GI prophylaxis (5) Discharge planning issues Current Visit: Yes Status: Acute Plan to address problem: Patient to be discharged to [facility] for [facility]hab. Will be discharged once arranged. History Interval history: Patient was seen and evaluated this morning Patient was alert and oriented, denies any complaints. Hospitalist Physical - Physical exam Narrative exam: Not in cardiopulmonary distress. The patient appeared well nourished and normally developed. Vital signs as documented. Head exam is unremarkable. No scleral icterus . Neck is without jugular venous distension, thyromegaly, or carotid bruits. Lungs are clear to auscultation. Cardiac exam reveals regular rate and Rhythm. Abdominal exam reveals normal bowel sounds, nontender, no organomegaly. Extremities are nonedematous and both femoral and pedal pulses are normal. 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 No focal weakness. - Constitutional Vitals: Temp Pulse Resp BP Pulse Ox 98.2 F 65 18 112/63 93 06/18/20 05:28 06/18/20 05:28 06/18/20 05:28 06/18/20 05:28 06/18/20 05:28 General appearance: Present: no acute distress, well-nourished Results Peterson/IV: Voiding Method Urinal IV Catheter Type [Right Hand] Peripheral IV Active Medications - Current Medications Current Medications: Generic Name Dose Route Start Last Admin Trade Name Freq PRN Reason Stop Dose Admin Benztropine Mesylate 1 mg 06/16/20 22:00 06/17/20 22:04 Cogentin PO 1 mg BID BERNARDO Administration Carvedilol 25 mg 06/16/20 22:00 06/17/20 22:04 Coreg PO 25 mg BID BERNARDO Administration Citalopram Hydrobromide 40 mg 06/17/20 10:00 06/17/20 10:26 Celexa PO 40 mg QAM BERNARDO Administration Fentanyl 100 mcg 06/14/20 06:00 06/14/20 11:45 Sublimaze IV 100 mcg ONCE PRN Administration sedation for nerve block Ibuprofen 600 mg 06/16/20 21:46 Ibuprofen PO Q8H PRN Pain, Mild (1-3) Olanzapine 2.5 mg 06/17/20 10:00 06/17/20 10:26 Zyprexa PO 2.5 mg QAM BERNARDO Administration Olanzapine 10 mg 06/16/20 22:00 06/17/20 22:04 Zyprexa PO 10 mg QHS BERNARDO Administration Oxcarbazepine 300 mg 06/17/20 10:00 06/17/20 10:27 Trileptal PO 300 mg QAM BERNARDO Administration Oxcarbazepine 600 mg 06/16/20 22:00 06/17/20 22:04 Trileptal PO 600 mg HS BERNARDO Administration Oxycodone/Acetaminophen 1 tab 06/14/20 17:28 06/18/20 05:49 Percocet 5/325 PO 1 tab Q6H PRN Administration Pain, Moderate (4-6)
[2020-06-18] MEDS: carvediloL 25 MG TAB PO SCH ×2 (09:32→21:36)
[2020-06-18] MEDS: CITALOPRAM 20 MG TAB PO SCH (09:32)
[2020-06-18] MEDS: OXcarbazepine 300 MG TAB PO SCH ×2 (09:33→21:35)
[2020-06-18] MEDS: BENZTROPINE 1 MG TAB PO SCH ×2 (09:33→21:37)
--- NOTE | 2020-06-19 07:31 | Progress Note ---
Assessment and Plan Assessment and plan: Open reduction internal fixation left ankle fracture by Dr. Carrillo. Postop patient doing well. Waiting for placement. (1) Ankle fracture, left Current Visit: Yes Status: Acute Qualifiers: Encounter type: initial encounter Fracture type: closed Qualified Code(s): S82.892A - Other fracture of left lower leg, initial encounter for closed fracture Plan to address problem: Patient had surgery on 06/14/2020. Patient is stable postop. Has pain in the left ankle about 6 on a scale of 1-10. Waiting for placement to subacute rehab (2) Bipolar disorder Current Visit: No Status: Chronic Qualifiers: Active/Remission status: in full remission Plan to address problem: Continue Zyprexa (3) Hypertension Current Visit: Yes Status: Chronic Qualifiers: Hypertension type: essential hypertension Qualified Code(s): I10 - Essential (primary) hypertension Plan to address problem: Continue antihypertensives and adjust meds patient is as necessary (4) DVT prophylaxis Current Visit: No Status: Acute Plan to address problem: On heparin and GI prophylaxis (5) Discharge planning issues Current Visit: Yes Status: Acute Plan to address problem: [facility] Will be discharged once arranged. History Interval history: Patient was seen and evaluated this morning Patient was alert and oriented, denies any complaints. Hospitalist Physical - Physical exam Narrative exam: Not in cardiopulmonary distress. The patient appeared well nourished and normally developed. Vital signs as documented. Head exam is unremarkable. No scleral icterus . Neck is without jugular venous distension, thyromegaly, or carotid bruits. Lungs are clear to auscultation. Cardiac exam reveals regular rate and Rhythm. Abdominal exam reveals normal bowel sounds, nontender, no organomegaly. Extremities are nonedematous and both femoral and pedal pulses are normal. JUNIOR ENGINEER: Alert and oriented 3. No focal weakness. - Constitutional Vitals: Temp Pulse Resp BP Pulse Ox 98.1 F 58 L 18 96/56 92 06/19/20 05:33 06/19/20 05:33 10 05:33 06/19/20 05:33 06/19/20 05:33 General appearance: Present: no acute distress, well-nourished Results - Labs Labs: Laboratory Last Values Coronavirus (PCR) Negative (Negative) 06/17/20 10:30 Peterson/IV: Voiding Method Urinal IV Catheter Type [Right Hand] Peripheral IV Active Medications - Current Medications Current Medications: Generic Name Dose Route Start Last Admin Trade Name Freq PRN Reason Stop Dose Admin Benztropine Mesylate 1 mg 06/16/20 22:00 06/18/20 21:37 Cogentin PO 1 mg BID BERNARDO Administration Carvedilol 25 mg 06/16/20 22:00 06/18/20 21:36 Coreg PO 25 mg BID BERNARDO Administration Citalopram Hydrobromide 40 mg 06/17/20 10:00 06/18/20 09:32 Celexa PO 40 mg QAM BERNARDO Administration Fentanyl 100 mcg 06/14/20 06:00 06/14/20 11:45 Sublimaze IV 100 mcg ONCE PRN Administration sedation for nerve block Ibuprofen 600 mg 06/16/20 21:46 Ibuprofen PO Q8H PRN Pain, Mild (1-3) Olanzapine 2.5 mg 06/17/20 10:00 06/18/20 09:33 Zyprexa PO 2.5 mg QAM BERNARDO Administration Olanzapine 10 mg 06/16/20 22:00 06/18/20 21:37 Zyprexa PO 10 mg QHS BERNARDO Administration Oxcarbazepine 300 mg 06/17/20 10:00 06/18/20 09:33 Trileptal PO 300 mg QAM BERNARDO Administration Oxcarbazepine 600 mg 06/16/20 22:00 06/18/20 21:35 Trileptal PO 600 mg HS BERNARDO Administration Oxycodone/Acetaminophen 1 tab 06/14/20 17:28 06/18/20 21:42 Percocet 5/325 PO 1 tab Q6H PRN Administration Pain, Moderate (4-6)
[2020-06-19] MEDS: carvediloL 25 MG TAB PO SCH (09:19)
[2020-06-19] MEDS: BENZTROPINE 1 MG TAB PO SCH (09:19)
[2020-06-19] MEDS: CITALOPRAM 20 MG TAB PO SCH (09:19)
[2020-06-19] MEDS: OXcarbazepine 300 MG TAB PO SCH (09:19)
[2020-06-19 13:37] VITALS: BP 112/70
== END 2020-06-19 16:27 | disposition home or self-care (01) ==
LOC: OR 10:07 → 3B-SURG 17:21
PROVIDERS: ADMIT Orthopaedic Surgery; ATTEND Orthopaedic Surgery
DX: S82.842A Displaced bimalleolar fracture of left lower leg, initial encounter for closed fracture (principal); Z20.828 Contact with and (suspected) exposure to other viral communicable diseases; I10 Essential (primary) hypertension; I95.9 Hypotension, unspecified; K21.9 Gastro-esophageal reflux disease without esophagitis; F25.9 Schizoaffective disorder, unspecified; F43.10 Post-traumatic stress disorder, unspecified; F31.9 Bipolar disorder, unspecified; Z90.49 Acquired absence of other specified parts of digestive tract; Z98.890 Other specified postprocedural states; Z79.899 Other long term (current) drug therapy; X58.XXXA Exposure to other specified factors, initial encounter; Y93.89 Activity, other specified; Y92.89 Other specified places as the place of occurrence of the external cause; Y99.8 Other external cause status
CPT/HCPCS: 27814; 64450; 71045; 73600; 96361; 96374; 96375; 97110; 97116; 97162; 97530; C1713; G0378; J0690; J0735; J1100; J1170; J2250; J2370; J2704; J3010; J7120; U0003

== ENCOUNTER 2020-12-04 19:34 | Observation (INO) | payer MEDICARE ==
[2020-12-04] MEDS ORDERED: ACETAMINOPHEN 325 MG TAB PO ONE (20:18)
--- NOTE | 2020-12-04 20:18 | Event Note ---
ED Screening Note Date of service: 12/04/20 Time: 20:17 ED Screening Note: Patient complains of left hand and wrist pain/swelling x2 days Denies injury Pain in forearm also Fever of 102.5 noted with mild tachycardia of 104 bpm This initial assessment/diagnostic orders/clinical plan/treatment(s) is/are subject to change based on patients health status, clinical progression and re- assessment by fellow clinical providers in the ED. Further treatment and workup at subsequent clinical providers discretion. Patient/guardian urged not to elope from the ED as their condition may be serious if not clinically assessed and managed. Initial orders include: Labs X-ray Ultrasound
[2020-12-04 20:52] LABS: Basophils # (Auto) 0.1 K/mm3 (0.0-0.1); Basophils % (Auto) 0.8 % (0.0-1.8); Eosinophils % (Auto) 0.1 % (0.0-4.3); Hematocrit 38.8 % (35.5-45.6); Hemoglobin 13.1 gm/dl (11.8-15.2); Lymphocytes # (Auto) 2.1 K/mm3 (1.2-5.4); Lymphocytes % (Auto) 13.8 % (13.4-35.0); Mean Corpuscular HGB Conc 34 % (32-34); Mean Corpuscular Volume 80 fl (84-94); Monocytes # (Auto) 1.1 K/mm3 (0.0-0.8); Monocytes % (Auto) 7.4 % (0.0-7.3); Platelet Count 331 K/mm3 (140-440); Red Blood Count 4.87 M/mm3 (3.65-5.03); Red Cell Distribution Width 17.2 % (13.2-15.2)
--- NOTE | 2020-12-04 20:54 | XRay Report ---
LEFT WRIST 4 VIEWS LEFT HAND 4 VIEWS INDICATION: sudden onset of pain and swelling. COMPARISON: No relevant prior imaging study available. FINDINGS: Left wrist: No acute fracture or dislocation is seen. No significant degenerative changes. Carpal ali gnment is normal. No foreign bodies or soft tissue gas. Left hand: No acute fracture or dislocation. No significant degenerative changes. There is mild diffu se soft tissue swelling about the hand and fingers. No foreign bodies. IMPRESSION: 1. Mild soft tissue swelling diffusely in the hand. Otherwise unremarkable exams. Signer Name: Lawrence Griffin MD Signed: 12/04/2020 8:49 PM Workstation Name: [id number]
[2020-12-04 21:04] LABS: Alanine Aminotransferase 26 units/L (7-56); Albumin 3.9 g/dL (3.9-5); BUN/Creatinine Ratio 12; Blood Urea Nitrogen 12 mg/dL (9-20); Hemolysis Index 5
[2020-12-04 21:15] LABS: Erythrocyte Sedimentation Rate 68 mm/Hr (0-20)
[2020-12-04] MEDS ORDERED: SODIUM CHLORIDE 0.9% 1000 ML IV SOLN IV ONE (22:31)
--- NOTE | 2020-12-04 22:46 | Emergency Department Report ---
Upper Extremity - HPI Chief Complaint: Extremity Injury, Upper Stated Complaint: LEFT ARM NUMBNESS/SWOLLEN Time Seen by Provider: 12/04/20 22:32 Upper Extremity: Left Arm, Left Elbow, Left Wrist, Left Hand Occurred When: 2 Days Mechanism: Other (No trauma) Severity: severe Symptoms: Yes Pain with Movement, Yes Limited Range of Movement, Yes Swelling, No Deformity, No Numbness, No Weakness, No Bruising/Ecchymosis, No Laceration or Abrasion Other History: Patient is a 40-year-old male that presents emergency room with complaints of left arm swelling and pain x2 days. Patient states he is having left elbow and left wrist swelling and pain. Patient states that the pain is a 10 out of 10. Patient states the pain is worse with movement and palpation. Patient states the pain is better with remaining still and rest. Patient states he is has a fever. Patient denies trauma or fall. Patient denies hitting his arm wrist or hands. Patient denies any other symptoms. Patient denies chest pain. Patient denies cough. Patient denies recent travel. Patient denies recent international travel. Patient denies exposure to the novel coronavirus. Patient denies sick contacts. Patient denies cough. Patient denies diarrhea. Patient denies coming in contact with anybody with symptoms of the novel coronavirus. ED Review of Systems ROS: Stated complaint: LEFT ARM NUMBNESS/SWOLLEN Other details as noted in HPI Constitutional: see HPI, chills, fever Eyes: denies: eye pain, eye discharge, vision change ENT: denies: ear pain, throat pain Respiratory: no symptoms reported. denies: cough, shortness of breath, wheezing Cardiovascular: denies: chest pain, palpitations Endocrine: no symptoms reported Gastrointestinal: denies: abdominal pain, nausea, diarrhea Genitourinary: denies: urgency, dysuria Musculoskeletal: as per HPI, joint swelling, arthralgia. denies: back pain Skin: denies: rash, lesions Neurological: denies: headache, weakness, paresthesias Psychiatric: denies: anxiety, depression Hematological/Lymphatic: denies: easy bleeding, easy bruising ED Past Medical Hx - Past Medical History Previous Medical History?: Yes Hx Hypertension: Yes Hx Heart Attack/AMI: No Hx Congestive Heart Failure: No Hx Diabetes: No Hx Deep Vein Thrombosis: No Hx Pulmonary Embolism: No Hx GERD: Yes Hx Liver Disease: No Hx Renal Disease: No Hx Arthritis: No Hx Seizures: No Hx Psychiatric Treatment: Yes (PTSD, AUTISM, schizoaffective disorder) Hx Asthma: No Hx COPD: No Hx Tuberculosis: No Hx Dementia: No Hx HIV: No Additional medical history: schizoeffective disorder. bipolar - Surgical History Past Surgical History?: Yes Hx Coronary Stent: No Hx Open Heart Surgery: No Hx Internal Defibrillator: No Hx Cholecystectomy: No Hx Appendectomy: Yes Additional Surgical History: right ACL repair - Family History Family history: no significant - Social History Smoking Status: Never Smoker Substance Use Type: None - Medications Home Medications: Home Medications Medication Instructions Recorded Confirmed Last Taken Type Ibuprofen [Motrin 600 MG tab] 600 mg PO Q8H PRN #30 tablet 06/08/18 06/14/20 06/13/20 20:30 Rx Citalopram Hydrobromide [Celexa] 40 mg PO QAM 06/04/20 06/14/20 06/13/20 06:30 History OLANzapine [ZyPREXA] 2.5 mg PO QAM 06/04/20 06/14/20 06/13/20 06:30 History OLANzapine [Zyprexa] 10 mg PO QHS 06/04/20 06/14/20 06/13/20 20:30 History carvediloL [Coreg] 25 mg PO BID 06/04/20 06/14/20 06/14/20 06:30 History OXcarbazepine [Trileptal] 300 mg PO QAM 06/05/20 06/14/20 06/13/20 06:30 History OXcarbazepine [Trileptal] 600 mg PO HS 06/05/20 06/14/20 06/13/20 20:30 History Benztropine [Cogentin] 1 mg PO BID 06/06/20 06/14/20 06/13/20 17:00 History oxyCODONE /ACETAMINOPHEN [Percocet 1 tab PO Q6HR PRN #30 tablet 06/14/20 Unknown Rx 5/325] Upper Extremity Exam - Exam General: Vital signs noted. No distress. Alert and acting appropriately. Head and Torso: No HEENT Abnormality, No Neck Tenderness, No Chest/Lungs Abnormality, No Abdominal Tenderness, No Back Tenderness Shoulder Exam: Yes Normal Range of Motion in Shoulder, No Shoulder Tenderness, No Clavicle Tenderness, No Shoulder Deformity, No AC Joint Tenderness Arm Exam: No Arm/Humerus Tenderness, No Arm Deformity Elbow: Yes Elbow Tenderness (Redness noted over the left elbow and tenderness to palpation. Elbow swelling noted.), No Normal Range of Motion in Elbow, No Elbow Deformity Forearm: No Forearm Tenderness, No Forearm Deformity, No Pain with Pronation, No Pain with Supination Wrist: Yes Wrist Tenderness, Yes Normal ROM in Wrist, No Wrist Deformity, No Snuffbox Tenderness, No Pain with Axial Thumb Compression Hand: Yes Normal ROM in Digit(s), No Hand Tenderness, No Hand Deformity, No Digit Tenderness, No Digit(s) Deformity, No Tendon Dysfunction CMS Exam: No Broken Skin, No Normal Distal Pulses, No Normal Capillary Refill, No Normal Distal Sensation ED Course Vital Signs 12/04/20 20:10 Temperature 102.3 F H Pulse Rate 104 H Respiratory 18 Rate Blood Pressure 122/86 O2 Sat by Pulse 87 Oximetry - Reevaluation(s) Reevaluation #1: Patient planing of severe pain. Patient will be given Dilaudid. I discussed all results with patient. I discussed plan of care with patient. Patient agrees with plan of care and admission. Patient to be admitted to the hospitalist service. 12/04/20 23:41 - Consultations Consultation #1: I discussed case with Dr. Carrillo, orthopedics. Dr. Carrillo recommends admission and IV antibiotics. Dr. Carrillo states he will tap the patient in the morning. 12/04/20 22:44 Consultation #2: Hospitalist consulted for admission. Hospitalist to admit patient. 12/04/20 23:41 ED Medical Decision Making - Lab Data Result diagrams: 12/04/20 20:25 12/04/20 20:25 - Radiology Data Radiology results: report reviewed, image reviewed interpreted by me: Chest x-ray: No pneumonia, no pneumothorax, no foreign body, no osseous findings, no acute findings LEFT WRIST 4 VIEWS LEFT HAND 4 VIEWS INDICATION: sudden onset of pain and swelling. COMPARISON: No relevant prior imaging study available. FINDINGS: Left wrist: No acute fracture or dislocation is seen. No significant degenerative changes. Carpal alignment is normal. No foreign bodies or soft tissue gas. Left hand: No acute fracture or dislocation. No significant degenerative change s. There is mild diffuse soft tissue swelling about the hand and fingers. No foreign bodies. IMPRESSION: 1. Mild soft tissue swelling diffusely in the hand. Otherwise unremarkable exams. LEFT ELBOW 2 VIEW(S) INDICATION / CLINICAL INFORMATION: elbow pain COMPARISON: None available. FINDINGS: BONES / JOINT(S): No acute fracture or subluxation. No significant arthritis. SOFT TISSUES: Moderate soft tissue swelling overlying the olecranon process likely represents olecranon bursitis ADDITIONAL FINDINGS: None. CHEST 1 VIEW 12/04/2020 10:01 PM INDICATION / CLINICAL INFORMATION: fever. COMPARISON: 06/16/2020 FINDINGS: SUPPORT DEVICES: None. HEART / MEDIASTINUM: No significant abnormality. LUNGS / PLEURA: No significant pulmonary or pleural abnormality. No pneu mothorax. ADDITIONAL FINDINGS: No significant additional findings. IMPRESSION: 1. No acute findings. - Medical Decision Making Patient is a 40-year-old male that presents emergency room with complaints of left arm pain and swelling. Patient has swelling throughout the lower part of his left upper extremity but is worse at the elbow. Patient has tenderness to palpation and redness of the skin of the left elbow. Patient had labs done which shows elevated WBC, elevated sed rate, elevated CRP. Patient's had x-rays of the hand, wrist and the elbow. Patient x-rays were negative for acute bite except for soft tissue swelling. I personally reviewed all the x-rays. Patient given IV fluids and IV antibiotics after blood cultures were done. Patient had a chest x-ray as well to rule out respiratory infection. Patient's chest x-ray was negative for acute findings. I personally reviewed the chest x-ray. I consulted Gerardo early in the ER stay and notes and recommended clindamycin and he will attempt patient in the morning. Patient admitted to the hospitalist service for further evaluation and treatment. Critical care time documented due to the multiple reassessments, prolonged time at the bedside, interpretation of diagnostics and labs and discussing with consultants.. - Differential Diagnosis Septic arthritis, elbow pain, hand pain, arm swelling, DVT, Critical Care Time: Yes Critical care time in (mins) excluding proc time.: 35 Critical care attestation.: If time is entered above; I have spent that time in minutes in the direct care of this critically ill patient, excluding procedure time. Critical Care Time: 35 minutes ED Disposition Clinical Impression: Left arm swelling, Elevated sed rate Septic arthritis Qualifiers: Septic arthritis location: elbow Septic arthritis organism: due to unspecified organism Laterality: left Qualified Code(s): M00.9 - Pyogenic arthritis, unspecified Elbow pain Qualifiers: Laterality: left Qualified Code(s): M25.522 - Pain in left elbow Wrist pain Qualifiers: Laterality: left Qualified Code(s): M25.532 - Pain in left wrist Elevated WBC count Qualifiers: Leukocytosis type: unspecified Qualified Code(s): D72.829 - Elevated white blood cell count, unspecified Disposition: 09 OP ADMIT IP TO THIS HOSP Is pt being admited?: Yes Does the pt Need Aspirin: No Condition: Critical Time of Disposition: 23:42
[2020-12-04] MEDS ORDERED: CLINDAMYCIN 600 MG/50 mL 600 MG/50 ML BAG IV ONE (22:47)
--- NOTE | 2020-12-04 23:15 | XRay Report ---
CHEST 1 VIEW 12/04/2020 10:01 PM INDICATION / CLINICAL INFORMATION: fever. COMPARISON: 06/16/2020 FINDINGS: SUPPORT DEVICES: None. HEART / MEDIASTINUM: No significant abnormality. LUNGS / PLEURA: No significant pulmonary or pleural abnormality. No pneumothorax. ADDITIONAL FINDINGS: No significant additional findings. IMPRESSION: 1. No acute findings. Signer Name: Sunny Covington MD Signed: 12/04/2020 11:10 PM Workstation Name: [id number]
--- NOTE | 2020-12-04 23:15 | XRay Report ---
LEFT ELBOW 2 VIEW(S) INDICATION / CLINICAL INFORMATION: elbow pain COMPARISON: None available. FINDINGS: BONES / JOINT(S): No acute fracture or subluxation. No significant arthritis. SOFT TISSUES: Moderate soft tissue swelling overlying the olecranon process likely represents olecran on bursitis ADDITIONAL FINDINGS: None. Signer Name: Sunny Covington MD Signed: 12/04/2020 11:11 PM Workstation Name: [id number]
[2020-12-04] MEDS ORDERED: HYDROmorphone 1 MG/1 ML INJ IV ONE (23:41)
[2020-12-05] MEDS ORDERED: ACETAMINOPHEN 325 MG TAB PO PRN (00:20)
[2020-12-05] MEDS ORDERED: ONDANSETRON 4 MG/2 ML INJ IV PRN (00:20)
[2020-12-05] MEDS ORDERED: MORPHINE 2 MG/1 ML INJ IV PRN (00:20)
[2020-12-05] MEDS ORDERED: IBUPROFEN 600 MG TAB PO PRN (00:22)
[2020-12-05] MEDS ORDERED: SODIUM CHLORIDE 0.9% 1000 ML 1,000 ML IV SCH (00:30)
--- NOTE | 2020-12-05 00:30 | History and Physical Report ---
History of Present Illness Date of examination: 12/05/20 Date of admission: 12/04/20 23:44 Chief complaint: Pain and swelling of the left upper extremity History of present illness: 40-year-old male with history of hypertension, PTSD, autism and schizoaffective disorder was brought to the emergency room with complaints of left arm swelling and pain x2 days. Patient states he is having left elbow and left wrist swelling and pain. Pain is 10 out of 10. Patient also complained of fever. Patient states the pain is worse with movement and palpation. Patient states the pain is better with remaining still and rest. Patient denies trauma or fall. Patient denies hitting his arm wrist or hands. Patient denies any other symptoms. Patient denies recent travel. Patient denies recent international travel. Patient denies exposure to the novel coronavirus. Patient denies sick contacts. The emergency room patient is found to have septic arthritis. WBCs 15.4 and CRP is 11.50 Past History Past Medical History: hypertension Medications and Allergies Allergies Allergy/AdvReac Type Severity Reaction Status Date / Time codeine Allergy Anaphylaxis Verified 10/08/18 19:56 onion Allergy Anaphylaxis Verified 01/28/19 21:16 Sulfa (Sulfonamide Allergy Anaphylaxis Verified 10/08/18 19:56 Antibiotics) Home Medications Medication Instructions Recorded Confirmed Last Taken Type Ibuprofen [Motrin 600 MG tab] 600 mg PO Q8H PRN #30 tablet 06/08/18 06/14/20 06/13/20 20:30 Rx Citalopram Hydrobromide [Celexa] 40 mg PO QAM 06/04/20 06/14/20 06/13/20 06:30 History OLANzapine [ZyPREXA] 2.5 mg PO QAM 06/04/20 06/14/20 06/13/20 06:30 History OLANzapine [Zyprexa] 10 mg PO QHS 06/04/20 06/14/20 06/13/20 20:30 History carvediloL [Coreg] 25 mg PO BID 06/04/20 06/14/20 06/14/20 06:30 History OXcarbazepine [Trileptal] 300 mg PO QAM 06/05/20 06/14/20 06/13/20 06:30 History OXcarbazepine [Trileptal] 600 mg PO HS 0906/14/20 06/13/20 20:30 History Benztropine [Cogentin] 1 mg PO BID 06/06/20 06/14/20 06/13/20 17:00 History oxyCODONE /ACETAMINOPHEN [Percocet 1 tab PO Q6HR PRN #30 tablet 06/14/20 Unknown Rx 5/325] Review of Systems Constitutional: fever, chills Musculoskeletal: redness of joints, arthritis Exam - Constitutional Vitals: Temp Pulse Resp BP Pulse Ox 102.3 F H 104 H 18 122/86 87 12/04/20 20:10 12/04/20 20:10 12/04/20 20:10 12/04/20 20:10 12/04/20 20:10 General appearance: Present: no acute distress, well-nourished - EENT Eyes: Present: PERRL ENT: hearing intact, clear oral mucosa - Neck Neck: Present: supple, normal ROM - Respiratory Respiratory effort: normal Respiratory: bilateral: CTA - Cardiovascular Heart Sounds: Present: S1 & S2. Absent: rub, click - Extremities Extremities: pulses symmetrical, No edema, abnormal Peripheral Pulses: within normal limits - Abdominal General gastrointestinal: Present: soft, non-tender, non-distended, normal bowel sounds Male genitourinary: Present: normal - Integumentary Integumentary: Present: clear, warm, dry - Musculoskeletal Musculoskeletal: gait normal, strength equal bilaterally - Psychiatric Psychiatric: appropriate mood/affect, intact judgment & insight - Neurologic Neurologic: CNII-XII intact, moves all extremities Results - Labs CBC & Chem 7: 12/04/20 20:25 12/04/20 20:25 Labs: Laboratory Last Values WBC 15.4 K/mm3 (4.5-11.0) H 12/04/20 20:25 RBC 4.87 M/mm3 (3.65-5.03) 12/04/20 20:25 Hgb 13.1 gm/dl (11.8-15.2) 12/04/20 20:25 Hct 38.8 % (35.5-45.6) 12/04/20 20:25 MCV 80 fl (84-94) L 12/04/20 20:25 MCH 27 pg (28-32) L 12/04/20 20:25 MCHC 34 % (32-34) 12/04/20 20:25 RDW 17.2 % (13.2-15.2) H 12/04/20 20:25 Plt Count 331 K/mm3 (140-440) 12/04/20 20:25 Lymph % (Auto) 13.8 % (13.4-35.0) 12/04/20 20:25 Bailey % (Auto) 7.4 % (0.0-7.3) H 12/04/20 20:25 Eos % (Auto) 0.1 % (0.0-4.3) 12/04/20 20:25 Baso % (Auto) 0.8 % (0.0-1.8) 12/04/20 20:25 Lymph # (Auto) 2.1 K/mm3 (1.2-5.4) 12/04/20 20:25 Bailey # (Auto) 1.1 K/mm3 (0.0-0.8) H 12/04/20 20:25 Eos # (Auto) 0.0 K/mm3 (0.0-0.4) 12/04/20 20:25 Baso # (Auto) 0.1 K/mm3 (0.0-0.1) 12/04/20 20:25 Seg Neutrophils % 77.9 % (40.0-70.0) H 12/04/20 20:25 Seg Neutrophils # 12.0 K/mm3 (1.8-7.7) H 12/04/20 20:25 ESR 68 mm/Hr (0-20) 12/04/20 20:25 Sodium 136 mmol/L (137-145) L 12/04/20 20:25 Potassium 4.1 mmol/L (3.6-5.0) 12/04/20 20:25 Chloride 99.7 mmol/L (98-107) 12/04/20 20:25 Carbon Dioxide 24 mmol/L (22-30) 12/04/20 20:25 Anion Gap 16 mmol/L 12/04/20 20:25 BUN 12 mg/dL (9-20) 12/04/20 20:25 Creatinine 1.0 mg/dL (0.8-1.3) 12/04/20 20:25 Estimated GFR > 60 ml/min 12/04/20 20:25 BUN/Creatinine Ratio 12 % 12/04/20 20:25 Glucose 138 mg/dL (75-100) H 12/04/20 20:25 Lactic Acid 1.20 mmol/L (0.7-2.0) 12/04/20 20:25 Calcium 9.0 mg/dL (8.4-10.2) 12/04/20 20:25 Total Bilirubin 0.50 mg/dL (0.1-1.2) 12/04/20 20:25 AST 15 units/L (5-40) 12/04/20 20:25 ALT 26 units/L (7-56) 12/04/20 20:25 Alkaline Phosphatase 102 units/L (35-129) 12/04/20 20:25 C-Reactive Protein 11.50 mg/dL (0.00-1.30) H 12/04/20 20:25 Total Protein 7.1 g/dL (6.3-8.2) 12/04/20 20:25 Albumin 3.9 g/dL (3.9-5) 12/04/20 20:25 Albumin/Globulin Ratio 1.2 % 12/04/20 20:25 Microbiology: Microbiology 12/04/20 20:25 Peripheral/Venous Blood Culture - Preliminary Culture in Progress 12/04/20 20:31 Peripheral/Venous Blood Culture - Preliminary Culture in Progress - Imaging and Cardiology Chest x-ray: image reviewed Assessment and Plan VTE prophylaxis?: Chemical Plan of care discussed with patient/family: Yes - Patient Problems (1) Septic arthritis Current Visit: Yes Status: Acute Qualifiers: Septic arthritis location: elbow Septic arthritis organism: due to unspecified organism Laterality: left Qualified Code(s): M00.9 - Pyogenic arthritis, unspecified Plan to address problem: Admit the patient to the medical floor. Put the patient on cardiac diet. Zosyn 4.5 g IV every 8 hours and vancomycin 1 g IV every 12 hours. We do the blood culture. We also consult orthopedic surgeon for evaluation and treatment. Rech lyn CBC CRP in the morning (2) Elevated WBC count Current Visit: Yes Status: Acute Qualifiers: Leukocytosis type: unspecified Qualified Code(s): D72.829 - Elevated white blood cell count, unspecified Plan to address problem: Admit the patient to the medical floor. Put the patient on cardiac diet. Zosyn 4.5 g IV every 8 hours and vancomycin 1 g IV every 12 hours. We do the blood culture. We also consult orthopedic surgeon for evaluation and treatment. Recheck CBC CRP in the morning (3) Hypertension Current Visit: Yes Status: Acute Plan to address problem: We will put the patient on cardiac diet .Coreg 25 mg p.o. twice daily. We will continue the other home medication. We will monitor the blood pressure closely. We measured the blood pressure every 8 hours (4) DVT prophylaxis Current Visit: No Status: Acute Plan to address problem: Heparin 5000 units subcu every 8 hours for DVT prophylaxis and Pepcid 20 mg p.o. twice daily for GI prophylaxis patient is a full code
[2020-12-05] MEDS ORDERED: VANCOMYCIN PHARMACY TO DOSE IV SCH (01:00)
[2020-12-05] MEDS ORDERED: VANCOMYCIN/NS 1 GM/250 ML 1 GM/250 ML BAG IV SCH (01:00)
[2020-12-05] MEDS: PIPERACIL/TAZOBACTA 4.5/NS 100 4.5 GM/100 ML VIAL IV SCH ×3 (01:17→14:00)
[2020-12-05] MEDS ORDERED: VANCOMYCIN 2,000 MG in SODIUM CHLORIDE 0.9% 500 ML 500 ML IV SCH ×2 (02:00→12:00)
[2020-12-05] MEDS ORDERED: carvediloL 25 MG TAB PO SCH (08:00)
[2020-12-05 08:24] LABS: Bilirubin,Urine NEG (Negative); Blood,Urine NEG (Negative); Color,Urine Yellow (Yellow); Mucus,Urine FEW /HPF; Protein,Urine <15 mg/dL mg/dL (Negative); Urobilinogen,Urine < 2.0 mg/dL (<2.0)
[2020-12-05] MEDS: HEPARIN 5,000 UNIT/1 ML VIAL SUB-Q SCH ×2 (09:30→14:57)
[2020-12-05] MEDS ORDERED: OXcarbazepine 300 MG TAB PO SCH ×2 (10:00→22:00)
[2020-12-05] MEDS ORDERED: FAMOTIDINE 20 MG TAB PO SCH (10:00)
[2020-12-05] MEDS ORDERED: SERTRALINE 50 MG TAB PO SCH (10:00)
[2020-12-05] MEDS ORDERED: CITALOPRAM 20 MG TAB PO SCH (10:00)
[2020-12-05] MEDS ORDERED: BENZTROPINE 1 MG TAB PO SCH (10:00)
[2020-12-05 10:05] VITALS: BP 149/80
--- NOTE | 2020-12-05 11:30 | Vascular Lab Report ---
Left lower extremity Doppler venous ultrasound INDICATION: Pain and swelling FINDINGS: Left IJ, subclavian, axilla, brachial, cephalic, radial and ulnar veins are patent with nor mal compressibility and phasic flow. IMPRESSION: No evidence for DVT in the left upper extremity. Signer Name: Idris Hurt MD Signed: 12/05/2020 11:26 AM Workstation Name: [id number]
--- NOTE | 2020-12-05 12:39 | Progress Note ---
Assessment and Plan (1) Septic arthritis Current Visit: Yes Status: Acute Qualifiers: Septic arthritis location: elbow Septic arthritis organism: due to unspecified organism Laterality: left Qualified Code(s): M00.9 - Pyogenic arthritis, unspecified Plan to address problem: Admit the patient to the medical floor. Put the patient on cardiac diet. Zosyn 4.5 g IV every 8 hours and vancomycin 1 g IV every 12 hours. We do the blood culture. We also consult orthopedic surgeon for evaluation and treatment. Recheck CBC CRP in the morning (2) Elevated WBC count Current Visit: Yes Status: Acute Qualifiers: Leukocytosis type: unspecified Qualified Code(s): D72.829 - Elevated white blood cell count, unspecified Plan to address problem: Admit the patient to the medical floor. Put the patient on cardiac diet. Zosyn 4.5 g IV every 8 hours and vancomycin 1 g IV every 12 hours. We do the blood culture. We also consult orthopedic surgeon for evaluation and treatment. Recheck CBC CRP in the morning (3) Hypertension Current Visit: Yes Status: Acute Plan to address problem: We will put the patient on cardiac diet .Coreg 25 mg p.o. twice daily. We will continue the other home medication. We will monitor the blood pressure closely. We measured the blood pressure every 8 hours (4) DVT prophylaxis Current Visit: No Status: Acute Plan to address problem: Heparin 5000 units subcu every 8 hours for DVT prophylaxis and Pepcid 20 mg p.o. twice daily for GI prophylaxis patient is a full code Daily clinical course: Continue IV antibiotics, follow blood culture, follow orthopedic and ID recommendation Subjective Date of service: 12/05/20 Objective - Constitutional Vitals: Vital Signs - 12hr 12/05/20 12/05/20 12/05/20 00:44 00:53 01:38 Temperature 99.5 F Pulse Rate 93 H 83 Respiratory 18 18 18 Rate Blood Pressure Blood Pressure 124/90 140/88 [Right] O2 Sat by Pulse 100 94 Oximetry 12/05/20 12/05/20 03:54 08:04 Temperature Pulse Rate 103 H Respiratory 18 Rate Blood Pressure 149/80 Blood Pressure [Right] O2 Sat by Pulse Oximetry - Labs CBC & Chem 7: 12/04/20 20:25 12/04/20 20:25 Labs: Abnormal lab results 12/04/20 12/04/2021 Range/Units 20:25 20:25 20:25 WBC 15.4 H (4.5-11.0) K/mm3 MCV 80 L (84-94) fl MCH 27 L (28-32) pg RDW 17.2 H (13.2-15.2) % Webb % (Auto) 7.4 H (0.0-7.3) % Webb # (Auto) 1.1 H (0.0-0.8) K/mm3 Seg Neutrophils % 77.9 H (40.0-70.0) % Seg Neutrophils # 12.0 H (1.8-7.7) K/mm3 Sodium 136 L (137-145) mmol/L Glucose 138 H (75-100) mg/dL C-Reactive Protein 11.50 H (0.00-1.30) mg/dL
--- NOTE | 2020-12-05 12:46 | Consultation ---
History of Present Illness - Reason for Consult Consult date: 12/05/20 r/o septic arthritis Requesting physician: WILIAM AFLCON - History of Present Illness 40 y/o male with history of hypertension, PTSD, autism, schizoaffective disorder, admitted to 12/05/2019 secondary to 2-day history of left arm swelling. Patient reports left swelling, pain is 10 out of 10. Pain worsened with movement. Patient also complaining of low-grade fever. Patient denies any trauma or injury. On arrival, temperature 102.3, HR 104, RR 18, O2 sat 87%, BP 122/86. Initial WBC 15.4.. Platelets 331. Creatinine 1. CRP 11.5. Urinalysis negative. Chest x-ray negative. Blood culture 12/04/2020 pending. Review of Systems: positive in bold print General: fever, chills, malaise Cutaneous: rash, pruritus Head: headaches or injury Eyes: changes in vision, eye pain, double vision Ears: ear pain, ear discharge, ringing or hearing loss Nose: nose bleeding, stuffiness Mouth & throat: bleeding gums, horseness, no dental problems, or swollen glands Neck: no pain, node enlargement/lumps, tyroid enlargement or tenderness Respiratory: SOB, cough, BARTON, wheezing, sputum, hemoptysis, pleuritic chest pain Cardiovascular: chest pain, leg edema, cyanosis, BARTON, orthopnea Musculoskeletal: left wrist elbow tenderness and edema Gastrointestinal: nausea, vomiting, hematemesis, diarrhea, constipation, melena, bright red blood in stools, fecal incontinence, jaundice Genitourinary/Reproductive: frequent urination, dysuria, hematuria, incontinence Neurogical: seizures, headaches, weakness, paresthesias, loss of speech or vision; memory loss, vertigo, tremors, numbness Psychiatric: stable mood; excessive anxiety, sadness or moodiness Past History Past Medical History: hypertension Medications and Allergies Allergies Allergy/AdvReac Type Severity Reaction Status Date / Time codeine Allergy Anaphylaxis Verified 10/08/18 19:56 onion Allergy Anaphylaxis Verified 01/28/19 21:16 Sulfa (Sulfonamide Allergy Anaphylaxis Verified 10/08/18 19:56 Antibiotics) Home Medications Medication Instructions Recorded Confirmed Last Taken Type Ibuprofen [Motrin 600 MG tab] 600 mg PO Q8H PRN #30 tablet 06/08/18 06/14/2006/13/20 20:30 Rx Citalopram Hydrobromide [Celexa] 40 mg PO QAM 06/04/20 06/14/20 06/13/20 06:30 History OLANzapine [ZyPREXA] 2.5 mg PO QAM 06/04/20 06/14/20 06/13/20 06:30 History OLANzapine [Zyprexa] 10 mg PO QHS 06/04/20 06/14/20 06/13/20 20:30 History carvediloL [Coreg] 25 mg PO BID 06/04/20 06/14/20 06/14/20 06:30 History OXcarbazepine [Trileptal] 300 mg PO QAM 06/05/20 06/14/20 06/13/20 06:30 History OXcarbazepine [Trileptal] 600 mg PO HS 06/05/20 06/14/20 06/13/20 20:30 History Benztropine [Cogentin] 1 mg PO BID 06/06/20 06/14/20 06/13/20 17:00 History oxyCODONE /ACETAMINOPHEN [Percocet 1 tab PO Q6HR PRN #30 tablet 06/14/20 Unknown Rx 5/325] Active Meds: Active Medications Acetaminophen (Acetaminophen 325 Mg Tab) 650 mg PO Q4H PRN PRN Reason: Pain MILD(1-3)/Fever >100.5/MARCH Carvedilol (Carvedilol 25 Mg Tab) 25 mg PO BID@0800,1700 [facility] Last Admin: 12/05/20 08:04 Dose: 25 mg Documented by: Famotidine (Famotidine 20 Mg Tab) 20 mg PO BID [facility] Last Admin: 12/05/20 09:41 Dose: 20 mg Documented by: Heparin Sodium (Porcine) (Heparin 5,000 Unit/1 Ml Vial) 5,000 unit SUB-Q Q8HR [facility] Last Admin: 12/05/20 09:30 Dose: Not Given Documented by: Sodium Chloride (Nacl 0.9% 1000 Ml) 1,000 mls @ 75 mls/hr IV DIRECT [facility] Last Admin: 12/05/20 02:06 Dose: 75 mls/hr Documented by: Piperacillin Sod/Tazobactam Sod (Zosyn/Ns 4.5gm/100ml) 4.5 gm in 100 mls @ 200 mls/hr IV Q8HR [facility]; Protocol Last Admin: 12/05/20 08:18 Dose: Not Given Documented by: Vancomycin HCl 2,000 mg/ (Sodium Chloride) 540 mls @ 250 mls/hr IV Q12H [facility] Last Admin: 12/05/20 11:57 Dose: 250 mls/hr Documented by: Ibuprofen (Ibuprofen 600 Mg Tab) 600 mg PO Q8H PRN PRN Reason: PAIN (1-3) Morphine Sulfate (Morphine 2 Mg/1 Ml Inj) 2 mg IV Q4H PRN PRN Reason: Pain, Moderate (4-6) Last Admin: 12/05/20 03:54 Dose: 2 mg Documented by: Olanzapine (Olanzapine 2.5 Mg Tab) 2.5 mg PO QAM [facility] Last Admin: 12/05/20 10:53 Dose: 2.5 mg Documented by: Olanzapine (Olanzapine 10 Mg Tab) 10 mg PO QHS [facility] Ondansetron HCl (Ondansetron 4 Mg/2 Ml Inj) 4 mg IV Q8H PRN PRN Reason: Nausea And Vomiting Oxcarbazepine (Oxcarbazepine 300 Mg Tab) 300 mg PO QAM [facility] Last Admin: 12/05/20 09:42 Dose: 300 mg Documented by: Oxcarbazepine (Oxcarbazepine 300 Mg Tab) 600 mg PO [facility] Sertraline HCl (Sertraline 50 Mg Tab) 50 mg PO QDAY [facility] Last Admin: 12/05/20 10:00 Dose: 50 mg Documented by: Sodium Chloride (Sodium Chloride 0.9% 10 Ml Flush Syringe) 10 ml IV BID [facility] Last Admin: 12/05/20 10:00 Dose: 10 ml Documented by: Sodium Chloride (Sodium Chloride 0.9% 10 Ml Flush Syringe) 10 ml IV PRN PRN PRN Reason: LINE FLUSH Physical Examination - Physical Exam Narrative exam: General appearance: Alert in NAD pleasant Eyes: anicteric sclerae, moist conjunctivae; no lid-lag; PERRLA HENT: Normocephalic, Atraumatic; normal external ears, nares open, oropharynx clear with moist mucous membranes and no oral thrush; normal hard and soft david te. Neck: supple, tracheal midline, no JVD Lungs: CTA, with normal respiratory effort and no intercostal retractions CV: RRR no murmur Abdomen: Soft, non-tender; no masses or hepatosplenomegaly Extremities:left wrist/elbow edema, tenderness, no erythema, no heat Skin: No rash. Psych: no agitated Neuro: alert and oriented x 3. Moving all extermities - Constitutional Vitals: Vital Signs Temp Pulse Resp BP Pulse Ox 99.4 F 103 H 18 149/80 89 12/05/20 03:26 12/05/20 08:04 12/05/20 03:54 12/05/20 08:04 12/05/20 03:26 Temperature -Last 24 Hours Temperature 99.4 F Temperature 99.5 F Temperature 102.3 F Results - Labs CBC & Chem 7: 12/04/20 20:25 12/04/20 20:25 Labs: Abnormal lab results 12/04/20 12/04/20 12/04/20 Range/Units 20:25 20:25 20:25 WBC 15.4 H (4.5-11.0) K/mm3 MCV 80 L (84-94) fl MCH 27 L (28-32) pg RDW 17.2 H (13.2-15.2) % St[place]ard % (Auto) 7.4 H (0.0-7.3) % [place]ard # (Auto) 1.1 H (0.0-0.8) K/mm3 Seg Neutrophils % 77.9 H (40.0-70.0) % Seg Neutrophils # 12.0 H (1.8-7.7) K/mm3 Sodium 136 L (137-145) mmol/L Glucose 138 H (75-100) mg/dL C-Reactive Protein 11.50 H (0.00-1.30) mg/dL Assessment and Plan Cultures: Blood culture pending Assessment: 40 y/o male with history of hypertension, PTSD, autism, schizoaffective disorder, gout, admitted to 12/05/2019 secondary to 2-day history of left arm swelling: #Sepsis: present on admission with fever, tachycardia, leukocytosis; source ?gouty attack. #Left elbow/wrist edema/tenderness: patient with h/o gout. Likely gout attack due to acute onset and already improving on antiinflammatory. Doubt septic arthritis or disseminated gonorrhea. Patient in a monogamous relationship for years. HIV neg last year. No h/o STDs. CRP 11.5. Elbow XR shows possible olecranon bursitis, likely inflammatory. Recommendations: -Patient feels better requesting to be d/c, pain level 4 of 10 -Ok to d/c with treatment for gout -Stop abx -Patient educated about close monitoring and return to the ED if symptoms does not completely resolves -F/u blood culture if positive he has to be readmitted Will follow. Yris Anaya MD Infectious Diseases [facility] M [phone] O [phone]
--- NOTE | 2020-12-05 13:56 | Consultation ---
History of Present Illness - [facility] Consult date: 12/05/20 Consult reason: joint pain History of present illness: 40 y/o male with long history gout, came in c/o left wrist/hand pain and swelling, denies hx of recent injury... Past History Past Medical History: hypertension Medications and Allergies Allergies Allergy/AdvReac Type Severity Reaction Status Date / Time codeine Allergy Anaphylaxis Verified 10/08/18 19:56 onion Allergy Anaphylaxis Verified 01/28/19 21:16 Sulfa (Sulfonamide Allergy Anaphylaxis Verified 10/08/18 19:56 Antibiotics) Home Medications Medication Instructions Recorded Confirmed Last Taken Type Ibuprofen [Motrin 600 MG tab] 600 mg PO Q8H PRN #30 tablet 06/08/18 06/14/20 06/13/20 20:30 Rx Citalopram Hydrobromide [Celexa] 40 mg PO QAM 06/04/20 06/14/20 06/13/20 06:30 History OLANzapine [ZyPREXA] 2.5 mg PO QAM 06/04/20 06/14/20 06/13/20 06:30 History OLANzapine [Zyprexa] 10 mg PO QHS 06/04/20 06/14/20 06/13/20 20:30 History carvediloL [Coreg] 25 mg PO BID 06/04/20 06/14/20 06/14/20 06:30 History OXcarbazepine [Trileptal] 300 mg PO QAM 06/05/20 06/14/20 06/13/20 06:30 History OXcarbazepine [Trileptal] 600 mg PO HS 06/05/20 06/14/20 06/13/20 20:30 History Benztropine [Cogentin] 1 mg PO BID 06/06/20 06/14/20 06/13/20 17:00 History oxyCODONE /ACETAMINOPHEN [Percocet 1 tab PO Q6HR PRN #30 tablet 06/14/20 Unknown Rx 5/325] Active Meds: Active Medications Acetaminophen (Acetaminophen 325 Mg Tab) 650 mg PO Q4H PRN PRN Reason: Pain MILD(1-3)/Fever >100.5/MARCH Carvedilol (Carvedilol 25 Mg Tab) 25 mg PO BID@0800,1700 [facility] Last Admin: 12/05/20 08:04 Dose: 25 mg Documented by: Colchicine (Colchicine 0.6 Mg Tab) 0.6 mg PO BID [facility] Famotidine (Famotidine 20 Mg Tab) 20 mg PO BID [facility] Last Admin: 12/05/20 09:41 Dose: 20 mg Documented by: Heparin Sodium (Porcine) (Heparin 5,000 Unit/1 Ml Vial) 5,000 unit SUB-Q Q8HR [facility] Last Admin: 12/05/20 09:30 Dose: Not Given Documented by: Sodium Chloride (Nacl 0.9% 1000 Ml) 1,000 mls @ 75 mls/hr IV DIRECT [facility] Last Admin: 12/05/20 02:06 Dose: 75 mls/hr Documented by: Piperacillin Sod/Tazobactam Sod (Zosyn/Ns 4.5gm/100ml) 4.5 gm in 100 mls @ 200 mls/hr IV Q8HR [facility]; Protocol Last Admin: 12/05/20 08:18 Dose: Not Given Documented by: Vancomycin HCl 2,000 mg/ (Sodium Chloride) 540 mls @ 250 mls/hr IV Q12H [facility] Last Admin: 12/05/20 11:57 Dose: 250 mls/hr Documented by: Ibuprofen (Ibuprofen 600 Mg Tab) 600 mg PO Q8H PRN PRN Reason: PAIN (1-3) Methylprednisolone Sodium Succinate (Methylprednisolone Sod Succinate 40 Mg/1 Ml Inj) 40 mg IV Q12HR [facility] Morphine Sulfate (Morphine 2 Mg/1 Ml Inj) 2 mg IV Q4H PRN PRN Reason: Pain, Moderate (4-6) Last Admin: 12/05/20 03:54 Dose: 2 mg Documented by: Olanzapine (Olanzapine 2.5 Mg Tab) 2.5 mg PO QAM [facility] Last Admin: 12/05/20 10:53 Dose: 2.5 mg Documented by: Olanzapine (Olanzapine 10 Mg Tab) 10 mg PO QHS [facility] Ondansetron HCl (Ondansetron 4 Mg/2 Ml Inj) 4 mg IV Q8H PRN PRN Reason: Nausea And Vomiting Oxcarbazepine (Oxcarbazepine 300 Mg Tab) 300 mg PO QAM [facility] Last Admin: 12/05/20 09:42 Dose: 300 mg Documented by: Oxcarbazepine (Oxcarbazepine 300 Mg Tab) 600 mg PO HS [facility] Sertraline HCl (Sertraline 50 Mg Tab) 50 mg PO QDAY [facility] Last Admin: 12/05/20 10:00 Dose: 50 mg Documented by: Sodium Chloride (Sodium Chloride 0.9% 10 Ml Flush Syringe) 10 ml IV BID [facility] Last Admin: 12/05/20 10:00 Dose: 10 ml Documented by: Sodium Chloride (Sodium Chloride 0.9% 10 Ml Flush Syringe) 10 ml IV PRN PRN PRN Reason: LINE FLUSH Physical Examination - Physical exam Narrative exam: left wrist/hand - moderate swelling, no erythema, dec active ROM, slightly tender at carpus... Assessment and Plan left wrist/hand swelling, hx of gouty attacks in past suspect gouty arthritis, doubt infectious etiology...
[2020-12-05] MEDS ORDERED: COLCHICINE 0.6 MG TAB PO SCH (14:00)
[2020-12-05] MEDS ORDERED: methylPREDNISolone Sod Succinate 40 MG/1 ML INJ IV SCH (14:00)
--- NOTE | 2020-12-05 16:21 | Discharge Summary ---
Providers - Providers Date of Admission: 12/05/20 10:28 Date of discharge: 12/05/20 Attending physician: WILIAM FALCON 12/04/20 23:46 Consult to Physician [CONS] Routine Comment: Consulting Provider: KIM BOWIE Physician Instructions: Reason For Exam: septic arth 12/05/20 08:09 Consult to Physician [CONS] Routine Comment: Consulting Provider: ELEAZAR MUNSON Physician Instructions: Reason For Exam: septic arthritis Hospitalization Condition: Critical Disposition: DC/[place]-06 HOME UNDER [facility] Final Discharge Diagnosis (Prints w/discharge instructions): Acute gout arthritis. Morbid obesity. SIRS. Schizoaffective disorder. HTN Core Measure Documentation - Palliative Care Palliative Care/ Comfort Measures: Not Applicable - Core Measures Any of the following diagnoses?: none Exam - Constitutional Vitals: Temp Pulse Resp BP Pulse Ox 99.4 F 103 H 18 149/80 89 12/05/20 03:26 12/05/20 08:04 12/05/20 03:54 12/05/20 08:04 12/05/20 03:26 Plan Activity: advance as tolerated Weight Bearing Status: Non-Weight Bearing (with the affected hand) Diet: low fat, low salt Durable Medical Equipment Needed Upon Discharge: other (left hand sling) Follow up with: CHARLOTTE GOYAL MD [Other] - 7 Days Prescriptions: Colchicine [Colcrys] 0.6 mg PO BID #20 tablet predniSONE [Deltasone] 50 mg PO QDAY #5 tab Ibuprofen 400 mg PO Q6H #20 capsule
== END 2020-12-05 17:00 | disposition home or self-care (01) ==
LOC: ED 19:34 → 3A 23:44 → INTOOBSV 12-05 10:28 → OBSVTOIN 12-05 10:28
PROVIDERS: ADMIT Hospitalist; ATTEND Internal Medicine
DX: M00.9 Pyogenic arthritis, unspecified (principal); D72.829 Elevated white blood cell count, unspecified; I10 Essential (primary) hypertension; K21.9 Gastro-esophageal reflux disease without esophagitis; M25.522 Pain in left elbow; M25.532 Pain in left wrist; F43.10 Post-traumatic stress disorder, unspecified; F84.0 Autistic disorder; F25.9 Schizoaffective disorder, unspecified; Z90.49 Acquired absence of other specified parts of digestive tract
CPT/HCPCS: 36415; 71045; 73070; 73110; 73130; 80053; 81001; 82140; 85025; 85652; 86140; 87040; 87086; 93971; 96365; 96366; 96367; 96375; 99291; G0378; J1170; J2270; J2543; J2920; J3370; J7030; J7040

== ENCOUNTER 2021-02-19 09:15 | Emergency (ER) | payer MEDICARE ==
[2021-02-19 09:53] LABS: Basophils # (Auto) 0.1 K/mm3 (0.0-0.1); Basophils % (Auto) 0.6 % (0.0-1.8); Eosinophils # (Auto) 0.1 K/mm3 (0.0-0.4); Eosinophils % (Auto) 0.5 % (0.0-4.3); Hematocrit 42.2 % (35.5-45.6); Hemoglobin 14.2 gm/dl (11.8-15.2); Lymphocytes # (Auto) 1.7 K/mm3 (1.2-5.4); Lymphocytes % (Auto) 14.1 % (13.4-35.0); Mean Corpuscular HGB Conc 34 % (32-34); Mean Corpuscular Volume 79 fl (84-94); Monocytes # (Auto) 0.4 K/mm3 (0.0-0.8); Monocytes % (Auto) 3.2 % (0.0-7.3); Platelet Count 297 K/mm3 (140-440); Red Blood Count 5.31 M/mm3 (3.65-5.03); Red Cell Distribution Width 15.5 % (13.2-15.2)
[2021-02-19 10:26] LABS: Alanine Aminotransferase 19 units/L (7-56); Albumin 4.4 g/dL (3.9-5); BUN/Creatinine Ratio 13; Blood Urea Nitrogen 13 mg/dL (9-20); Calcium 9.7 mg/dL (8.4-10.2); Hemolysis Index 8
--- NOTE | 2021-02-19 10:29 | Emergency Department Report ---
ED Syncope HPI - General Chief Complaint: Dizziness Stated Complaint: SYNCOPE Time Seen by Provider: 02/19/21 10:07 - History of Present Illness Initial Comments: Patient is a 40-year-old male presents emergency room complaints of a brief episode of syncope. Patient states that this morning he was feeling lightheaded and then had a brief episode of loss of consciousness. He denies hitting his head. He denies any neck pain or back pain. He denies any injury. Patient states that he had been off of his psychiatric medications since December. He states he was just started back on his medication last night. He states that he believes this is what caused his lightheadedness. Patient states he is currently in a [employer] program. He denies any chest pain, shortness of breath, dizziness, nausea, vomiting, diarrhea, fever, cough, palpitations, abdominal pain. Past medical history of GERD, hypertension, schizoaffective. He denies any SI or HI. He denies any tobacco use, alcohol use, drug use. - Related Data Allergies/Adverse Reactions: Allergies codeine Allergy (Verified 10/08/18 19:56) Anaphylaxis onion Allergy (Verified 01/28/19 21:16) Anaphylaxis Sulfa (Sulfonamide Antibiotics) Allergy (Verified 10/08/18 19:56) Anaphylaxis Home Medications: Ambulatory Orders Ibuprofen [Motrin 600 MG tab] 600 mg PO Q8H PRN #30 tablet 06/08/18 OLANzapine [ZyPREXA] 2.5 mg PO QAM 06/04/20 OLANzapine [Zyprexa] 10 mg PO QHS 06/04/20 carvediloL [Coreg] 25 mg PO BID 06/04/20 OXcarbazepine [Trileptal] 300 mg PO QAM 06/05/20 OXcarbazepine [Trileptal] 600 mg PO HS 06/05/20 Colchicine [Colcrys] 0.6 mg PO BID #20 tablet 12/05/20 Ibuprofen 400 mg PO Q6H #20 capsule 12/05/20 predniSONE [Deltasone] 50 mg PO QDAY #5 tab 12/05/20 ED Review of Systems ROS: Stated complaint: SYNCOPE Other details as noted in HPI Comment: All other systems reviewed and negative ED Past Medical Hx - Past Medical History Hx Hypertension: Yes Hx Heart Attack/AMI: No Hx Congestive Heart Failure: No Hx Diabetes: No Hx Deep Vein Thrombosis: No Hx Pulmonary Embolism: No Hx GERD: Yes Hx Liver Disease: No Hx Renal Disease: No Hx Arthritis: No Hx Seizures: No Hx Psychiatric Treatment: Yes (PTSD, AUTISM, schizoaffective disorder) Hx Asthma: No Hx COPD: No Hx Tuberculosis: No Hx Dementia: No Hx HIV: No Additional medical history: schizoeffective disorder. bipolar - Surgical History Hx Coronary Stent: No Hx Open Heart Surgery: No Hx Internal Defibrillator: No Hx Cholecystectomy: No Hx Appendectomy: Yes Additional Surgical History: right ACL repair - Social History Smoking Status: Never Smoker Substance Use Type: None - Medications Home Medications: Home Medications Medication Instructions Recorded Confirmed Last Taken Type Ibuprofen [Motrin 600 MG tab] 600 mg PO Q8H PRN #30 tablet 06/08/18 06/14/20 06/13/20 20:30 Rx OLANzapine [ZyPREXA] 2.5 mg PO QAM 06/04/20 06/14/20 06/13/20 06:30 History OLANzapine [Zyprexa] 10 mg PO QHS 06/04/20 06/14/20 06/13/20 20:30 History carvediloL [Coreg] 25 mg PO BID 06/04/20 06/14/20 06/14/20 06:30 History OXcarbazepine [Trileptal] 300 mg PO QAM 06/05/20 06/14/20 06/13/20 06:30 History OXcarbazepine [Trileptal] 600 mg PO HS 06/05/20 06/14/20 06/13/20 20:30 History Colchicine [Colcrys] 0.6 mg PO BID #20 tablet 12/05/20 Unknown Rx Ibuprofen 400 mg PO Q6H #20 capsule 12/05/20 Unknown Rx predniSONE [Deltasone] 50 mg PO QDAY #5 tab 12/05/20 Unknown Rx ED Physical Exam - General Limitations: No Limitations General appearance: alert, in no apparent distress - Head Head exam: Present: atraumatic, normocephalic - Eye Eye exam: Present: normal appearance, PERRL, EOMI - ENT ENT exam: Present: mucous membranes moist - Respiratory Respiratory exam: Present: normal lung sounds bilaterally. Absent: respiratory distress, wheezes, rales, rhonchi, stridor, chest wall tenderness, accessory muscle use, decreased breath sounds, prolonged expiratory - Cardiovascular Cardiovascular Exam: Present: regular rate, normal rhythm, normal heart sounds. Absent: systolic murmur, diastolic murmur, rubs, gallop - Neurological Exam Neurological exam: Present: alert, oriented X3, CN II-XII intact, normal gait. Absent: motor sensory deficit - Psychiatric Psychiatric exam: Present: normal affect, normal mood - Skin Skin exam: Present: warm, dry, intact ED Course Vital Signs 02/19/21 02/19/21 02/19/21 09:28 09:29 09:31 Temperature 98.1 F Pulse Rate 102 H Respiratory 18 18 Rate Blood Pressure 148/83 Blood Pressure [Left] O2 Sat by Pulse Oximetry 02/19/21 11:40 Temperature Pulse Rate 84 Respiratory 18 Rate Blood Pressure Blood Pressure 132/90 [Left] O2 Sat by Pulse 99 Oximetry ED Medical Decision Making - Lab Data Result diagrams: 02/19/21 09:39 02/19/21 09:39 Lab Results 02/19/21 02/19/21 02/19/21 Range/Units 09:39 09:39 09:39 WBC 11.8 H (4.5-11.0) K/mm3 RBC 5.31 H (3.65-5.03) M/mm3 Hgb 14.2 (11.8-15.2) gm/dl Hct 42.2 (35.5-45.6) % MCV 79 L (84-94) fl MCH 27 L (28-32) pg MCHC 34 (32-34) % RDW 15.5 H (13.2-15.2) % Plt Count 297 (140-440) K/mm3 Lymph % (Auto) 14.1 (13.4-35.0) % Perkins % (Auto) 3.2 (0.0-7.3) % Eos % (Auto) 0.5 (0.0-4.3) % Baso % (Auto) 0.6 (0.0-1.8) % Lymph # (Auto) 1.7 (1.2-5.4) K/mm3 Perkins # (Auto) 0.4 (0.0-0.8) K/mm3 Eos # (Auto) 0.1 (0.0-0.4) K/mm3 Baso # (Auto) 0.1 (0.0-0.1) K/mm3 Seg Neutrophils % 81.6 H (40.0-70.0) % Seg Neutrophils # 9.6 H (1.8-7.7) K/mm3 Sodium 140 (137-145) mmol/L Potassium 4.2 (3.6-5.0) mmol/L Chloride 101.6 (98-107) mmol/L Carbon Dioxide 23 (22-30) mmol/L Anion Gap 20 mmol/L BUN 13 (9-20) mg/dL Creatinine 1.0 (0.8-1.3) mg/dL Estimated GFR > 60 ml/min BUN/Creatinine Ratio 13 % Glucose 163 H (75-100) mg/dL Calcium 9.7 (8.4-10.2) mg/dL Magnesium 2.10 (1.7-2.3) mg/dL Total Bilirubin 0.40 (0.1-1.2) mg/dL AST 14 (5-40) units/L ALT 19 (7-56) units/L Alkaline Phosphatase 115 (35-129) units/L Total Creatine Kinase 60 (55-170) units/L Troponin T < 0.010 (0.00-0.029) ng/mL Total Protein 6.9 (6.3-8.2) g/dL Albumin 4.4 (3.9-5) g/dL Albumin/Globulin Ratio 1.8 % Urine Color (Yellow) Urine Turbidity (Clear) Urine pH (5.0-7.0) Ur Specific [place] (1.003-1.030) Urine Protein (Negative) mg/dL Urine Glucose (UA) (Negative) mg/dL Urine Ketones (Negative) mg/dL Urine Blood (Negative) Urine Nitrite (Negative) Urine Bilirubin (Negative) Urine Urobilinogen (<2.0) mg/dL Ur Leukocyte Esterase (Negative) Urine WBC (Auto) (0.0-6.0) /HPF Urine RBC (Auto) (0.0-6.0) /HPF U Epithel Cells (Auto) (0-13.0) /HPF Hyaline Casts /LPF Urine Mucus /HPF Urine Opiates Screen Urine Methadone Screen Ur Barbiturates Screen Ur Phencyclidine Scrn Ur Amphetamines Screen U Benzodiazepines Scrn Urine Cocaine Screen U Marijuana (THC) Screen Drugs of Abuse Note 02/19/21 02/19/21 Range/Units Unknown Unknown WBC (4.5-11.0) K/mm3 RBC (3.65-5.03) M/mm3 Hgb (11.8-15.2) gm/dl Hct (35.5-45.6) % MCV (84-94) fl MCH (28-32) pg MCHC (32-34) % RDW (13.2-15.2) % Plt Count (140-440) K/mm3 Lymph % (Auto) (13.4-35.0) % Perkins % (Auto) (0.0-7.3) % Eos % (Auto) (0.0-4.3) % Baso % (Auto) (0.0-1.8) % Lymph # (Auto) (1.2-5.4) K/mm3 Perkins # (Auto) (0.0-0.8) K/mm3 Eos # (Auto) (0.0-0.4) K/mm3 Baso # (Auto) (0.0-0.1) K/mm3 Seg Neutrophils % (40.0-70.0) % Seg Neutrophils # (1.8-7.7) K/mm3 Sodium (137-145) mmol/L Potassium (3.6-5.0) mmol/L Chloride (98-107) mmol/L Carbon Dioxide (22-30) mmol/L Anion Gap mmol/L BUN (9-20) mg/dL Creatinine (0.8-1.3) mg/dL Estimated GFR ml/min BUN/Creatinine Ratio % Glucose (75-100) mg/dL Calcium (8.4-10.2) mg/dL Magnesium (1.7-2.3) mg/dL Total Bilirubin (0.1-1.2) mg/dL AST (5-40) units/L ALT (7-56) units/L Alkaline Phosphatase (35-129) units/L Total Creatine Kinase (55-170) units/L Troponin T (0.00-0.029) ng/mL Total Protein (6.3-8.2) g/dL Albumin (3.9-5) g/dL Albumin/Globulin Ratio % Urine Color Yellow (Yellow) Urine Turbidity Clear (Clear) Urine pH 5.0 (5.0-7.0) Ur Specific [place] 1.016 (1.003-1.030) Urine Protein 100 mg/dl (Negative) mg/dL Urine Glucose (UA) Neg (Negative) mg/dL Urine Ketones Neg (Negative) mg/dL Urine Blood Sm (Negative) Urine Nitrite Neg (Negative) Urine Bilirubin Neg (Negative) Urine Urobilinogen < 2.0 (<2.0) mg/dL Ur Leukocyte Esterase Neg (Negative) Urine WBC (Auto) 5.0 (0.0-6.0) /HPF Urine RBC (Auto) 4.0 (0.0-6.0) /HPF U Epithel Cells (Auto) < 1.0 (0-13.0) /HPF Hyaline Casts 3 /LPF Urine Mucus Few /HPF Urine Opiates Screen Negative Urine Methadone Screen Negative Ur Barbiturates Screen Negative Ur Phencyclidine Scrn Negative Ur Amphetamines Screen Negative U Benzodiazepines Scrn Negative Urine Cocaine Screen Negative U Marijuana (THC) Screen Negative Drugs of Abuse Note Disclamer Vital Signs 02/19/21 02/19/21 02/19/21 09:28 09:29 09:31 Temperature 98.1 F Pulse Rate 102 H Respiratory 18 18 Rate Blood Pressure 148/83 Blood Pressure [Left] O2 Sat by Pulse Oximetry 02/19/21 11:40 Temperature Pulse Rate 84 Respiratory 18 Rate Blood Pressure Blood Pressure 132/90 [Left] O2 Sat by Pulse 99 Oximetry - EKG Data EKG shows normal: sinus rhythm, axis, intervals, QRS complexes, ST-T waves Rate: normal - Radiology Data Radiology results: report reviewed Ordering Physician: REVA MARINELLI Date of Service: 02/19/21 Procedure(s): CT head/brain wo con Accession Number(s): [id number] cc: REVA MARINELLI CT head/brain wo con INDICATION / CLINICAL INFORMATION: 40 years Male; syncope. TECHNIQUE: Routine CT head without contrast. All CT scans at this location are performed using CT dose reduction for ALARA by means of automated exposure control. COMPARISON: None. FINDINGS: BRAIN / INTRACRANIAL CONTENTS: The findings are most consistent with small focus of calcification within the left basal ganglia. There is no surrounding edema and this region. There is also sug gestion of subtle white matter changes which are nonspecific though may reflect microvascular angiopathy. There is no clear CT evidence of acute intracranial hemorrhage or significant mass effect. ORBITS: No significant abnormality of visualized orbits. SINUSES / MASTOIDS: No significant abnormality in the visualized paranasal sinuses or mastoid air cells. CRANIOCERVICAL JUNCTION: No significant abnormality. ADDITIONAL FINDINGS: None. IMPRESSION: 1. There is no clear CT evidence of acute intracranial process. Signer Name: Rustam Tao MD Signed: 02/19/2021 10:50 AM Workstation Name: [id number] Transcribed By: MR Dictated By: Rustam Tao MD Electronically Authenticated By: Rustam Tao MD Signed Date/Time: 02/19/21 1050 DD/ 1046 TD/TT: Print - Medical Decision Making Patient is a 40-year-old male presents emergency room complaints of a brief episode of syncope. Patient states that this morning he was feeling lightheaded and then had a brief episode of loss of consciousness. He denies hitting his head. He denies any neck pain or back pain. He denies any injury. Patient states that he had been off of his psychiatric medications since December. He states he was just started back on his medication last night. He states that he believes this is what caused his lightheadedness. Patient states he is currently in a [employer] program. He denies any chest pain, shortness of breath, dizziness, nausea, vomiting, diarrhea, fever, cough, palpitations, abdominal pain. Past medical history of GERD, hypertension, schizoaffective. He denies any SI or HI. He denies any tobacco use, alcohol use, drug use. Initial vitals with a very mild tachycardia which improved to normal upon repeat, EKG with normal heart rate. No abnormality on physical examination as documented in chart. EKG within normal limits. CT head 1. There is no clear CT evidence of acute intracranial process. Labs are stable. UA without evidence of UTI or significant dehydration. UDS is negative. Symptoms could be related to recently restarting his medications. Discussed case with Dr. Buster Abbott, ER attending who advised that patient can be discharged home with outpatient follow-up. Patient be referred to primary care doctor and neurologist. Discussed return precautions with patient. Advised patient Please increase your water intake. Please follow-up with your primary care doctor. Please follow- up with a neurologist. You will need to be cleared by a primary care doctor or neurologist prior to operating a motor vehicle. Return to emergency room for any new or worsening symptoms. Critical care attestation.: If time is entered above; I have spent that time in minutes in the direct care of this critically ill patient, excluding procedure time. ED Disposition Clinical Impression: Syncope Qualifiers: Syncope type: unspecified Qualified Code(s): R55 - Syncope and collapse Disposition: - TO HOME OR SELFCARE Is pt being admited?: No Does the pt Need Aspirin: No Condition: Stable Instructions: Syncope, [id number], Syncope (ED) Additional Instructions: Please increase your water intake. Please follow-up with your primary care doctor. Please follow-up with a neurologist. You will need to be cleared by a primary care doctor or neurologist prior to operating a motor vehicle. Return to emergency room for any new or worsening symptoms. Referrals: ALONZO ANDRES MD [Staff Physician] - 2-3 Days [facility] [Provider Group] - 2-3 Days CHARLOTTE MORRISON MD [Staff Physician] - 2-3 Days JANNA PROCTOR MD [Referring] - 2-3 Days MIGUE LOVE MD [Staff Physician] - 2-3 Days Time of Disposition: 11:21 Print Language: ARGENTINE
[2021-02-19 10:38] LABS: Bilirubin,Urine NEG (Negative); Blood,Urine SM (Negative); Color,Urine Yellow (Yellow); Hyaline Casts,Urine 3 /LPF; Mucus,Urine FEW /HPF; Urobilinogen,Urine < 2.0 mg/dL (<2.0)
[2021-02-19 10:44] LABS: Amphetamine Screen,Urine Negative; Benzodiazepines Screen,Urine Negative; Cannabinoid Screen,Urine Negative; Cocaine Screen,Urine Negative; Methadone Screen,Urine Negative; Opiate Screen,Urine Negative
--- NOTE | 2021-02-19 10:55 | Cat Scan Report ---
CT head/brain wo con INDICATION / CLINICAL INFORMATION: 40 years Male; syncope. TECHNIQUE: Routine CT head without contrast. All CT scans at this location are performed using CT dos e reduction for ALARA by means of automated exposure control. COMPARISON: None. FINDINGS: BRAIN / INTRACRANIAL CONTENTS: The findings are most consistent with small focus of calcification wit hin the left basal ganglia. There is no surrounding edema and this region. There is also suggestion o f subtle white matter changes which are nonspecific though may reflect microvascular angiopathy. Ther e is no clear CT evidence of acute intracranial hemorrhage or significant mass effect. ORBITS: No significant abnormality of visualized orbits. SINUSES / MASTOIDS: No significant abnormality in the visualized paranasal sinuses or mastoid air liana ls. CRANIOCERVICAL JUNCTION: No significant abnormality. ADDITIONAL FINDINGS: None. IMPRESSION: 1. There is no clear CT evidence of acute intracranial process. Signer Name: Rustam Tao MD Signed: 02/19/2021 10:50 AM Workstation Name: [id number]
[2021-02-19 11:41] VITALS: BP 132/90
--- NOTE | 2021-02-27 10:55 | Electrocardiograph Report ---
[facility] Test Date: 2021-02-19 Test Time: 10:17:13 Pat Name: JENNA GAMBLE Department: Room: Gender: M Sat Math Tutor: SILVERIO : 1980 Requested By: ALFREDO GARZA Order Number: [id number] [place] MD: Otilio Nelson Measurements Intervals [place] Rate: 66 P: 27 IN: 165 QRS: 74 QRSD: 89 T: 28 QT: 406 QTc: 426 Interpretive Statements Sinus rhythm No previous ECG available for comparison Electronically Signed On 02-27-2021 10:55:08 EDT by Otilio Nelson
== END 2021-02-19 11:44 | disposition home or self-care (01) ==
LOC: ED 09:15
DX: R55 Syncope and collapse (principal); I10 Essential (primary) hypertension; K21.9 Gastro-esophageal reflux disease without esophagitis; Z79.1 Long term (current) use of non-steroidal anti-inflammatories (NSAID); Z79.899 Other long term (current) drug therapy; Z90.49 Acquired absence of other specified parts of digestive tract; Z98.890 Other specified postprocedural states; Z88.2 Allergy status to sulfonamides; Z88.8 Allergy status to other drugs, medicaments and biological substances
CPT/HCPCS: 36415; 70450; 80053; 80307; 81001; 82550; 83735; 84484; 85025; 93005

== ENCOUNTER 2021-06-16 15:34 | Emergency (ER) | payer MEDICARE ==
--- NOTE | 2021-06-16 18:06 | Emergency Department Report ---
ED General Adult HPI - General Chief complaint: High BP Stated complaint: BP MEDS REFILL Time Seen by Provider: 06/16/21 17:49 Source: patient Mode of arrival: Ambulatory Limitations: No Limitations - History of Present Illness Initial comments: The patient was evaluated in the emergency department for symptoms described in the history of present illness. He/she was evaluated in the context of the global COVID-19 pandemic, which necessitated consideration that the patient might be at risk for infection with the virus that causes COVID-19. Institut ional protocols and algorithms that pertain to the evaluation of patients at risk for COVID-19 are in a state of rapid change based on information released by regulatory bodies including the CDC and federal and state organizations. These policies and algorithms were followed during the patient's care in the emergency department. Please note that these policies, procedures and recommendations changed on a rapid basis. 41-year-old male comes from [place] reports that the symptom will be here because his blood pressure was elevated. Patient states that he has a history of hypertension and chronic right knee pain. Patient states has been out of his Lopressor for about a week. Patient states he does have a prescription with him for the medication. Patient also complains of right knee pain and swelling. Patient states that he saw his orthopedics provider today and had fluid removed. Patient states that this is chronically done every 4 weeks. Patient reports his primary care provider is is at [facility] right up the street from the hospital. Patient states that his orthopedic provider is Dr. Thomas in [place]. Patient at this time denies any chest pain shortness of breathing headache dizziness. Patient reports that he usually takes ibuprofen but states that does not help. - Related Data Home Medications Medication Instructions Recorded Confirmed Last Taken OLANzapine [ZyPREXA] 2.5 mg PO QAM 06/04/20 06/14/20 06/13/20 06:30 OLANzapine [Zyprexa] 10 mg PO QHS 06/04/20 06/14/20 06/13/20 20:30 carvediloL [Coreg] 25 mg PO BID 06/04/20 06/14/20 06/14/20 06:30 OXcarbazepine [Trileptal] 300 mg PO QAM 06/05/20 06/14/20 06/13/20 06:30 OXcarbazepine [Trileptal] 600 mg PO HS 06/05/20 06/14/20 06/13/20 20:30 Previous Rx's Medication Instructions Recorded Last Taken Type Ibuprofen [Motrin 600 MG tab] 600 mg PO Q8H PRN #30 tablet 06/08/18 06/13/20 20:30 Rx Colchicine [Colcrys] 0.6 mg PO BID #20 tablet 12/05/20 Unknown Rx Ibuprofen 400 mg PO Q6H #20 capsule 12/05/20 Unknown Rx predniSONE [Deltasone] 50 mg PO QDAY #5 tab 12/05/20 Unknown Rx Allergies Allergy/AdvReac Type Severity Reaction Status Date / Time codeine Allergy Anaphylaxis Verified 10/08/18 19:56 onion Allergy Anaphylaxis Verified 01/28/19 21:16 Sulfa (Sulfonamide Allergy Anaphylaxis Verified 10/08/18 19:56 Antibiotics) ED Review of Systems ROS: Stated complaint: BP MEDS REFILL Other details as noted in HPI Comment: All other systems reviewed and negative ED Past Medical Hx - Past Medical History Hx Hypertension: Yes Hx Heart Attack/AMI: No Hx Congestive Heart Failure: No Hx Diabetes: No Hx Deep Vein Thrombosis: No Hx Pulmonary Embolism: No Hx GERD: Yes Hx Liver Disease: No Hx Renal Disease: No Hx Arthritis: No Hx Seizures: No Hx Psychiatric Treatment: Yes (PTSD, AUTISM, schizoaffective disorder) Hx Asthma: No Hx COPD: No Hx Tuberculosis: No Hx Dementia: No Hx HIV: No Additional medical history: schizoeffective disorder. bipolar - Surgical History Hx Coronary Stent: No Hx Open Heart Surgery: No Hx Internal Defibrillator: No Hx Cholecystectomy: No Hx Appendectomy: Yes Additional Surgical History: right ACL repair - Social History Smoking Status: Never Smoker Substance Use Type: None - Medications Home Medications: Home Medications Medication Instructions Recorded Confirmed Last Taken Type Ibuprofen [Motrin 600 MG tab] 600 mg PO Q8H PRN #30 tablet 06/08/18 06/14/20 06/13/20 20:30 Rx OLANzapine [ZyPREXA] 2.5 mg PO QAM 06/04/20 06/14/20 06/13/20 06:30 History OLANzapine [Zyprexa] 10 mg PO QHS 06/04/20 06/14/20 06/13/20 20:30 History carvediloL [Coreg] 25 mg PO BID 06/04/20 06/14/2020 06:30 History OXcarbazepine [Trileptal] 300 mg PO QAM 06/05/20 06/14/20 06/13/20 06:30 History OXcarbazepine [Trileptal] 600 mg PO HS 06/05/20 06/14/20 06/13/20 20:30 History Colchicine [Colcrys] 0.6 mg PO BID #20 tablet 12/05/20 Unknown Rx Ibuprofen 400 mg PO Q6H #20 capsule 12/05/20 Unknown Rx predniSONE [Deltasone] 50 mg PO QDAY #5 tab 12/05/20 Unknown Rx ED Physical Exam - General Limitations: No Limitations ED Course Vital Signs 06/16/21 15:44 Temperature 99 F Pulse Rate 97 H Respiratory 16 Rate Blood Pressure 152/101 [Left] O2 Sat by Pulse 97 Oximetry ED Medical Decision Making - Medical Decision Making 41-year-old male comes from [place] reports that the symptom will be here because his blood pressure was elevated. Patient states that he has a history of hypertension and chronic right knee pain. Patient states has been out of his Lopressor for about a week. Patient states he does have a prescription with him for the medication. Patient also complains of right knee pain and swelling. Patient states that he saw his orthopedics provider today and had fluid removed. Patient states that this is chronically done every 4 weeks. Patient reports his primary care provider is is at [facility] right up the street from the hospital. Patient states that his orthopedic provider is Dr. Thomas in [place]. Patient at this time denies any chest pain shortness of breathing headache dizziness. Patient reports that he usually takes ibuprofen but states that does not help. Patient is asymptomatic hypertension. With chronic right knee pain and swelling. Patient has close follow-up with his orthopedic provider. Patient currently has a prescription for his Lopressor. Patient needs to filled his prescription. Critical care attestation.: If time is entered above; I have spent that time in minutes in the direct care of this critically ill patient, excluding procedure time. ED Disposition Clinical Impression: Hypertension, Schizophrenic disorder, Chronic pain of right knee Disposition: HOME / SELF CARE / HOMELESS Is pt being admited?: No Does the pt Need Aspirin: No Condition: Stable Instructions: Hypertension (ED) Additional Instructions: Please go to the pharmacist and fill your prescription for Lopressor. Continue with ibuprofen or Tylenol for for pain. Follow-up with your primary care providers. [facility]errals[facility]Other[facility] - 3-5 Days Time of Disposition: 18:31
[2021-06-16 18:29] VITALS: BP 155/104
== END 2021-06-16 18:28 | disposition home or self-care (01) ==
LOC: ED 15:34
DX: I10 Essential (primary) hypertension (principal); M25.561 Pain in right knee; F25.0 Schizoaffective disorder, bipolar type; K21.9 Gastro-esophageal reflux disease without esophagitis; F43.10 Post-traumatic stress disorder, unspecified; F84.0 Autistic disorder; Z90.89 Acquired absence of other organs; Z98.890 Other specified postprocedural states; Z88.2 Allergy status to sulfonamides; Z88.5 Allergy status to narcotic agent; Z91.018 Allergy to other foods
CPT/HCPCS: 99282